=== PATIENT | male | born 1960 | race African-American/Black ===

== ENCOUNTER 2016-10-30 13:24 | Emergency (ER) | payer OTHER ==
[~2016-10-30] VITALS: Ht 167.6 cm; Wt 75.9 kg
[~2016-10-30 13:24] MED LIST: BUSP10TA PO; CILO100T PO; GABA300C3 PO; GABA300C5 PO; LISI40TA PO; PROT40TA PO; SERO400T PO; TRAZ50TA12 PO
[2016-10-30 13:25] VITALS: BP 113/72; PULSE 118; RESP 20; TEMP 98.4; O2SAT 96
--- NOTE | 2016-10-30 13:35 | PD ---
Physical Exam Time Seen by Provider: 13:33 Narrative Pt presents to the ED for evaluation of chest pain for 1 week. Aggravated with eating and drinking. States SOB. Denies any history of heart disease. Tachycardic, otherwise VSS stable. Awaiting bed placement. Data Data Last Documented VS Vital Signs Date Time Temp Pulse Resp B/P Pulse Ox O2 Delivery O2 Flow Rate FiO2 10/30/16 13:25 98.4 118 20 113/72 96 Room Air MDM Supervised Visit with DESIRAE: Nathalia Palacios Oct 30, 2016 13:35
--- NOTE | 2016-10-30 14:48 | RADRPT ---
EXAM DATE/TIME: 10/30/2016 14:37 [facility] COMPARISON: CHEST SINGLE AP, October 04, 2014, 12:14. INDICATIONS : Chest pain. MEDICAL HISTORY : None. SURGICAL HISTORY : None. ENCOUNTER: Initial ACUITY: 4 - 6 days PAIN SCORE: 9/10 LOCATION: Bilateral chest Mediastinal. FINDINGS: There is minimal blunting of the right costophrenic sulcus. The left lung is clear. The heart and pu lmonary vascularity are normal. The portion of the bony skeleton visualized is unremarkable. CONCLUSION: Minimal blunting of the right costophrenic sulcus, new from the comparison study. Jasmeet Lindo MD FACR on October 30, 2016 at 14:44 Board Certified Radiologist. This report was verified electronically.
[2016-10-30] MEDS ORDERED: LIDOCAINE VISCOUS 2% SOLN 15 ML UDC PO ONE (15:15)
[2016-10-30] MEDS ORDERED: SODIUM CHLORIDE 0.9% FLUSH 10 ML FLUSH IVF PRN (15:15)
[2016-10-30] MEDS ORDERED: ALUMINUM/MAGNESIUM/SIMETH 30 ML CUP PO ONE (15:15)
--- NOTE | 2016-10-30 15:15 | PD ---
HPI Chief Complaint: Chest Pain Time Seen by Provider: 15:05 Travel History International Travel<30 days: No Contact w/Intl Traveler<30days: No Traveled to known affect area: No History of Present Illness HPI This is a 56-year-old male who presents for evaluation of chest pain, dysphagia and odynophagia. Symptoms started several weeks ago, worsening over the past week which prompted evaluation. He reports substernal chest pain which is somewhat constant but primarily aggravated when he eats or drinks. He reports that sometimes he vomits up what he is just eaten. He also endorses a cough with yellow sputum production over the past 4-5 days. He denies any shortness of breath, fevers or chills, abdominal pain, diarrhea or constipation. He has never had an endoscopy. Denies any history of coronary artery disease. He does have a history of hiatal hernia, borderline diabetes and hypertension as well as asthma. He has no other complaints at this time. PFSH Past Medical History Asthma: Yes Cardiac Catheterization: Yes (2006) Cardiovascular Problems: Yes Chest Pain: Yes COPD: Yes GERD: Yes Hypertension: Yes Musculoskeletal: Yes (CHRONIC BACK PAIN) Neurologic: Yes (RESTLESS LEG SYNDROME) Migraines: Yes ?: Not Past Surgical History Abdominal Surgery: Yes (HERNIA) Appendectomy: Yes Eye Surgery: Yes Other Surgery: Yes (RT HERNIA REPAIR X 8) Social History Alcohol Use: No Tobacco Use: Yes (1/2 PPD) Substance Use: No Allergies-Medications (Allergen,Severity, Reaction): Coded Allergies: No Known Allergies (Verified , 03/18/16) Reported Meds & Prescriptions Reported Meds & Active Scripts Active Proair Hfa 8.5 GM Inh (Albuterol Sulfate) 90 Mcg/Act Aer 2 Puff INH Q4-6H PRN 108 mcg/actuation Prednisone 20 Mg Tab 20 Mg PO BID 5 Days Doxycycline Hyclate 100 Mg Cap 100 Mg PO BID Gabapentin 300 Mg Cap 300 Mg PO TID Lisinopril 40 Mg Tab 40 Mg PO DAILY Cilostazol 100 Mg Tab 100 Mg PO DAILY Protonix (Pantoprazole Sodium) 40 Mg Tab 40 Mg PO BID Reported Trazodone (Trazodone HCl) 50 Mg Tab 50 Mg PO HS Buspirone (Buspirone HCl) 10 Mg Tab 10 Mg PO TID Seroquel (Quetiapine Fumarate) 400 Mg Tab 400 Mg PO HS Review of Systems Except as stated in HPI: all other systems reviewed are Neg Physical Exam Narrative GENERAL: Well-developed well-nourished male in no acute distress SKIN: Warm and dry. HEAD: Atraumatic. Normocephalic. EYES: Pupils equal and round. No scleral icterus. No injection or drainage. ENT: No nasal bleeding or discharge. Mucous membranes pink and moist. NECK: Trachea midline. No JVD. CARDIOVASCULAR: Regular rate and rhythm. No murmur appreciated. RESPIRATORY: No accessory muscle use. There are some wheezing bilaterally.. GASTROINTESTINAL: Abdomen soft, non-tender, nondistended. Hepatic and splenic margins not palpable. MUSCULOSKELETAL: No obvious deformities. No edema and negative Homans NEUROLOGICAL: Awake and alert. No obvious cranial nerve deficits. Motor grossly within normal limits. Normal speech. PSYCHIATRIC: Appropriate mood and affect; insight and judgment normal. Data Data Last Documented VS Vital Signs Date Time Temp Pulse Resp B/P Pulse Ox O2 Delivery O2 Flow Rate FiO2 10/30/16 15:25 135/75 142/78 10/30/16 13:25 98.4 118 20 96 Room Air Orders Electrocardiogram (10/30/16 ) Chest, Pa & Lat (10/30/16 ) Barium Swallow (10/30/16 ) Electrocardiogram (10/30/16 15:07) Ckmb (Isoenzyme) Profile (10/30/16 15:07) Complete Blood Count With Diff (10/30/16 15:07) Magnesium (Mg) (10/30/16 15:07) Prothrombin Time / Inr (Pt) (10/30/16 15:07) Act Partial Throm Time (Ptt) (10/30/16 15:07) Troponin I (10/30/16 15:07) Ecg Monitoring (10/30/16 15:07) Bilateral Bp Monitoring (10/30/16 15:07) Iv Access Insert/Monitor (10/30/16 15:07) Oximetry (10/30/16 15:07) Oxygen Administration (10/30/16 15:07) Sodium Chloride 0.9% Flush (Ns Flush) (10/30/16 15:15) Al-Mag Hy-Si 40-40-4 Mg/Ml Liq (Mag-Al P (10/30/16 15:15) Lidocaine 2% Viscous (Xylocaine 2% Visco (10/30/16 15:15) Comprehensive Metabolic Panel (10/30/16 15:07) Albuterol-Ipratropium Neb (Duoneb Neb) (10/30/16 15:15) CKMB (10/30/16 15:11) CKMB% (10/30/16 15:11) Labs Laboratory Tests Test 10/30/16 15:11 White Blood Count 12.8 TH/MM3 Red Blood Count 5.58 MIL/MM3 Hemoglobin 13.3 GM/DL Hematocrit 43.0 % Mean Corpuscular Volume 77.0 FL Mean Corpuscular Hemoglobin 23.9 PG Mean Corpuscular Hemoglobin 31.0 % Concent Red Cell Distribution Width 17.3 % Platelet Count 346 TH/MM3 Mean Platelet Volume 7.8 FL Neutrophils (%) (Auto) 60.4 % Lymphocytes (%) (Auto) 28.3 % Monocytes (%) (Auto) 9.6 % Eosinophils (%) (Auto) 1.1 % Basophils (%) (Auto) 0.6 % Neutrophils # (Auto) 7.7 TH/MM3 Lymphocytes # (Auto) 3.6 TH/MM3 Monocytes # (Auto) 1.2 TH/MM3 Eosinophils # (Auto) 0.1 TH/MM3 Basophils # (Auto) 0.1 TH/MM3 CBC Comment DIFF FINAL Differential Comment Prothrombin Time 11.1 SEC Prothromb Time International 1.0 RATIO Ratio Activated Partial 29.0 SEC Thromboplast Time Sodium Level 135 MEQ/L Potassium Level 4.6 MEQ/L Chloride Level 103 MEQ/L Carbon Dioxide Level 23.3 MEQ/L Anion Gap 9 MEQ/L Blood Urea Nitrogen 11 MG/DL Creatinine 1.28 MG/DL Estimat Glomerular Filtration 70 ML/MIN Rate Random Glucose 95 MG/DL Calcium Level 8.9 MG/DL Magnesium Level 1.9 MG/DL Total Bilirubin 0.4 MG/DL Aspartate Amino Transf 23 U/L (AST/SGOT) Alanine Aminotransferase 17 U/L (ALT/SGPT) Alkaline Phosphatase 73 U/L Total Creatine Kinase 157 U/L Creatine Kinase MB 0.8 NG/ML Troponin I LESS THAN 0.02 NG/ML Total Protein 8.1 GM/DL Albumin 3.5 GM/DL MDM Medical Decision Making Medical Screen Exam Complete: Yes Emergency Medical Condition: Yes Medical Record Reviewed: Yes Interpretation(s) EKG sinus rhythm Differential Diagnosis Achalasia, esophagitis, gastritis, esophageal stricture, bronchitis, pneumonia, acute coronary syndrome, pulmonary embolism Narrative Course This is a 56 year old male who for several weeks has had dysphagia and odynophagia associated with a pain in the center of his chest when he eats or drinks. It is worse over the past 5-7 days which is what prompted evaluation today. He also endorses a cough with productive sputum production over the past 4-5 days. On initial examination he appears well. He does have wheezing bilaterally. Initially he was tachycardic in triage. When the patient was placed in the bed his vital signs were rechecked and it was 77. The patient's barium swallow study reveals mild smooth narrowing of the distal esophagus at the level of the GE junction. Recommended endoscopy for further evaluation. The patient will be discharged for outpatient GI follow-up. He will be discharged with doxycycline for presumed pneumonia as well as prednisone , albuterol for the wheezing. Diagnosis Primary Impression: Dysphagia Qualified Code: R13.10 - Dysphagia, unspecified type Additional Impression: Pneumonia Qualified Code: J18.9 - Pneumonia due to infectious organism, unspecified laterality, unspecified part of lung Referrals: [facility] Additional Instructions: Medication as prescribed. As discussed, follow-up with a leader writer for outpatient endoscopy imaging. Return for any emergent medical conditions. Med/Other Pt SpecificInfo: Prescription(s) given Scripts Albuterol 8.5 GM Inh (Proair Hfa 8.5 GM Inh)90 Mcg/Act Aer2 Puff INH Q4-6H PRN ( SHORTNESS OF BREATH) #1 INHALER Ref 0 108 mcg/actuation Prov:Debbie Ren DO 10/30/16 Prednisone 20 Mg Tab20 Mg PO BID 5 Days Ref 0 Prov:Debbie Ren DO 10/30/16 Doxycycline Hyclate 100 Mg Crh173 Mg PO BID #20 CAP Ref 0 Prov:Debbie Ren DO 10/30/16 Disposition: 01 DISCHARGE HOME Condition: Stable Jalen Gomez Oct 30, 2016 15:15
[2016-10-30 15:25] VITALS: BP_SYST 135; BP_SYST 142; BP_DIAS 75; BP_DIAS 78
[2016-10-30] MEDS: RESP: ALBUTEROL 2.5 MG/IPRATROPIUM 0.5 MG NEB (SCH) INH (15:26)
[2016-10-30 15:40] LABS: AUTOMATED NEUTROPHIL # 7.7 TH/MM3 (1.8-7.7); BASOPHIL # 0.1 TH/MM3 (0-0.2); BASOPHIL % 0.6 % (0.0-2.0); EOSINOPHIL # 0.1 TH/MM3 (0-0.4); EOSINOPHIL % 1.1 % (0.0-4.0); HEMO FLAGS DIFF FINAL; LYMPH % 28.3 % (9.0-44.0); LYMPHOCYTE # 3.6 TH/MM3 (1.0-4.8); MEAN CORPUSCULAR HEMOGLOBIN 23.9 PG (27.0-34.0); MONO % 9.6 % (0.0-8.0); NEUT % 60.4 % (16.0-70.0); PLATELET COUNT 346 TH/MM3 (150-450); RED BLOOD COUNT 5.58 MIL/MM3 (4.50-5.90); RED CELL DISTRIBUTION WIDTH 17.3 % (11.6-17.2); WHITE BLOOD COUNT 12.8 TH/MM3 (4.0-11.0)
[2016-10-30 15:50] LABS: PROTHROMBIN TIME - PATIENT 11.1 SEC (9.8-11.6)
[2016-10-30 16:04] LABS: ALT (GPT) 17 U/L (12-78); ANION GAP 9 MEQ/L (5-15); AST (GOT) 23 U/L (15-37); BICARBONATE 23.3 MEQ/L (21.0-32.0); BLOOD UREA NITROGEN 11 MG/DL (7-18); CHLORIDE 103 MEQ/L (98-107); GLOMERULAR FILTRATION RATE 70 ML/MIN (>89); MAGNESIUM 1.9 MG/DL (1.5-2.5); SODIUM (NA) 135 MEQ/L (136-145)
[2016-10-30 16:05] LABS: POTASSIUM 4.6 MEQ/L (3.5-5.1)
[2016-10-30 16:12] LABS: ALKALINE PHOSPHATASE 73 U/L (45-117); CREATINE KINASE 157 U/L (39-308); TOTAL BILIRUBIN ADULT 0.4 MG/DL (0.2-1.0)
[2016-10-30 16:25] LABS: CKMB 0.8 NG/ML (0.5-3.6)
--- NOTE | 2016-10-30 16:25 | RADRPT ---
EXAM DATE/TIME: 10/30/2016 15:57 [facility] COMPARISON: No previous studies available for comparison. INDICATIONS : Dysphagia. FLUORO TIME: 1.6 minutes IMAGE COUNT: 11 CONTRAST: 1. Liquid E-Z Paque Barium Sulfate (60% w/v, 41% w.w) MEDICAL HISTORY : None. SURGICAL HISTORY : None. ENCOUNTER: Initial ACUITY: 1 month PAIN SCORE: 6/10 LOCATION: Throat. FINDINGS: Air-contrast views of the hypopharynx demonstrate a normal mucosal surface without filling defect. R apid sequence images of the hypopharynx and cervical esophagus during the passage of barium demonstra te a normal swallowing function. No evidence of aspiration. Multiphasic examination of the esophagu s demonstrates some mild smooth narrowing at the GE junction. This does not appear to restrict flow o f contrast were the barium tablet. There was moderate gastroesophageal reflux in the supine position. . CONCLUSION: 1. Mild smooth narrowing of the distal esophagus at the level of the GE junction. Recommend direct vi sualization by endoscopy for further evaluation. 2. Moderate gastroesophageal reflux in the supine position. Mingo Forbes MD on October 30, 2016 at 16:20 Board Certified Radiologist. This report was verified electronically.
[2016-10-30] MEDS ORDERED: DOXY100C PO (16:43)
[2016-10-30] MEDS ORDERED: PRED20 PO (16:43)
[2016-10-30] MEDS ORDERED: ALBUAER3 INH (16:43)
[2016-10-31] MEDS ORDERED: CILO100T PO (15:47)
--- NOTE | 2016-10-31 18:32 | EKG ---
Date Performed: 10/30/2016 Time Performed: 13:39:47 PTAGE: 56 years EKG: SINUS TACHYCARDIA WITH SHORT NH INTERVAL POSSIBLE LEFT ATRIAL ENLARGEMENT NONSPECIFIC T-WAV E ABNORMALITY Compared to previous tracing, the sinus tachycardia is new. Patient continues to have a ccelerated AV node conduction and Clinical correlation and appropriate evaluation is advised. The inf erolateral ST segment elevation is resolved ABNORMAL RHYTHM ECG PREVIOUS TRACING : 10/05/2014 00.05 DOCTOR: Carissa Nolasco Interpretating Date/Time 10/31/2016 18:31:13
[2016-11-01] MEDS ORDERED: PROT40TA PO (12:27)
[2016-11-05] MEDS ORDERED: HALO2TAB PO (09:35)
[2016-11-05] MEDS ORDERED: BUPR150T3 PO (09:35)
[2016-11-05] MEDS ORDERED: BENZ0.5T PO (09:35)
[2016-11-05] MEDS ORDERED: METH125I2 IM (09:52)
[2016-11-05] MEDS ORDERED: OMEP40CA2 PO (09:53)
[2016-11-06] MEDS ORDERED: PRED50 PO (14:04)
== END 2016-10-30 17:04 | disposition home or self-care (01) ==
LOC: NEPC 13:24
DX: R13.10 Dysphagia, unspecified (principal); J18.9 Pneumonia, unspecified organism; R00.0 Tachycardia, unspecified; R73.03 Prediabetes; I10 Essential (primary) hypertension; K44.9 Diaphragmatic hernia without obstruction or gangrene; F17.210 Nicotine dependence, cigarettes, uncomplicated
CPT/HCPCS: 71020; 74230; 80053; 82550; 82552; 83735; 84484; 85025; 85610; 85730; 93005; 94640; 94664

== ENCOUNTER → 2016-11-25 | Outpatient (CLI) | payer OTHER ==
[~2016-11-25] MED LIST changes: +ALBUAER3 INH; +BENZ0.5T PO; +BUPR150T3 PO; +DOXY100C PO; -GABA300C3 PO; +HALO2TAB PO; +OMEP40CA2 PO; +PRED20 PO; +PRED50 PO
--- NOTE | 2016-11-25 09:22 | RADRPT ---
EXAM DATE/TIME: 11/25/2016 09:04 [facility] COMPARISON: No previous studies available for comparison. INDICATIONS : Dysphagia, feels like food gets stuck. FLUORO TIME: 0.3 minutes IMAGE COUNT: 8 CONTRAST: 1. Liquid E-Z Paque Barium Sulfate (60% w/v, 41% w.w) MEDICAL HISTORY : None. SURGICAL HISTORY : None. ENCOUNTER: Initial ACUITY: 4 - 6 months PAIN SCORE: 10/10 LOCATION: Bilateral neck FINDINGS: The hypopharynx appears intact without any definite mucosal lesions or mass. The region of the crico pharyngeus muscle appears intact. The esophagus appears intact without any definite mucosal lesions, stricture, or mass. The gastroesophageal junction appears intact. Patient was given a barium pill and swallowed this without any difficulty with prompt passage through the gastroesophageal junction. CONCLUSION: Unremarkable barium swallow. Alexis Valdivia MD on November 25, 2016 at 9:20 Board Certified Radiologist. This report was verified electronically.
== END ==
LOC: HRAD 08:10
PROVIDERS: ATTEND Family Medicine
DX: R13.10 Dysphagia, unspecified (principal)
CPT/HCPCS: 74230

== ENCOUNTER 2017-04-22 06:23 | Inpatient (IN) | payer SELFPAY ==
[~2017-04-22] VITALS: Ht 182.9 cm; Wt 78.2 kg
[2017-04-22] VITALS (21 sets, daily range): BP systolic 102–139; BP diastolic 63–95; PULSE 94–123; RESP 27–45; TEMP 99.4–99.8; O2SAT 92–100
[~2017-04-22 06:23] MED LIST changes: -DOXY100C PO; -PRED20 PO; -PRED50 PO
[2017-04-22] MEDS ORDERED: SODIUM CHLOR 0.9% 1000 ML INJ 1,000 ML IV ONE ×3 (06:30→15:45)
[2017-04-22] MEDS ORDERED: methylPREDNISolone SOD SUCC 125 MG/2 ML VIAL IV PUSH ONE (06:30)
[2017-04-22] MEDS ORDERED: SODIUM CHLORIDE 0.9% FLUSH 10 ML FLUSH IVF PRN (06:30)
[2017-04-22] MEDS: RESP: ALBUTEROL 2.5 MG/IPRATROPIUM 0.5 MG NEB (SCH) INH ×4 (06:39→21:15)
--- NOTE | 2017-04-22 06:45 | RADRPT ---
EXAM DATE/TIME: 04/22/2017 06:35 [facility] COMPARISON: CHEST PA & LAT, October 30, 2016, 14:37 INDICATIONS : Short of breath. MEDICAL HISTORY : None. SURGICAL HISTORY : None. ENCOUNTER: Initial ACUITY: 1 day PAIN SCORE: 0/10 LOCATION: Bilateral chest FINDINGS: Right lung base air space consolidation is present. This was not seen previously. Heart and mediastin um are unremarkable for technique. CONCLUSION: Right lower lobe pneumonia. Alexis Valdivia MD on April 22, 2017 at 6:43 Board Certified Radiologist. This report was verified electronically.
--- NOTE | 2017-04-22 06:46 | PD ---
HPI Chief Complaint: Cold / Flu Symptoms Time Seen by Provider: 06:29 Travel History International Travel<30 days: No Contact w/Intl Traveler<30days: No Traveled to known affect area: No History of Present Illness HPI 56-year-old man, 3-4 days cough cold symptoms, worsening trouble breathing, fevers and chills. History of COPD, diabetes, hypertension. Ran out of his nebulizers tonight. Significant worsening shortness of breath, cough, fever or myalgias. No nausea or vomiting. History limited due to patient's marked respiratory distress. History Past Medical History Narrative Medical COPD Hypertension Diabetes Social History Alcohol Use: No Tobacco Use: Yes (04/29 PPD) Allergies-Medications (Allergen,Severity, Reaction): Coded Allergies: No Known Allergies (Verified , 12/09/16) Reported Meds & Prescriptions Reported Meds & Active Scripts Active Gabapentin 300 Mg Cap 300 Mg PO TID Lisinopril 40 Mg Tab 40 Mg PO DAILY Omeprazole 40 Mg Cap 40 Mg PO DAILY Protonix (Pantoprazole Sodium) 40 Mg Tab 40 Mg PO BID Cilostazol 100 Mg Tab 100 Mg PO DAILY Proair Hfa 8.5 GM Inh (Albuterol Sulfate) 90 Mcg/Act Aer 2 Puff INH Q4-6H PRN 108 mcg/actuation Reported Haloperidol 2 Mg Tab 2 Mg PO DAILY Bupropion HCl ER 24 HR (Bupropion HCl) 150 Mg Tab 150 Mg PO DAILY Benztropine (Benztropine Mesylate) 0.5 Mg Tab 2 Mg PO HS Trazodone (Trazodone HCl) 50 Mg Tab 50 Mg PO HS Buspirone (Buspirone HCl) 10 Mg Tab 10 Mg PO TID Seroquel (Quetiapine Fumarate) 400 Mg Tab 400 Mg PO HS Review of Systems ROS Limitations: Clinical Condition Physical Exam Narrative GENERAL: Ill-appearing 56-year-old man, moderate respiratory distress. SKIN: Clammy. HEAD: Atraumatic. Normocephalic. EYES: Pupils equal and round. No scleral icterus. No injection or drainage. ENT: No nasal bleeding or discharge. Mucous membranes pink and moist. NECK: Trachea midline. No JVD. CARDIOVASCULAR: Heart rate rapid, regular. No appreciable murmurs. RESPIRATORY: Significant respiratory distress, speaking in 2-3 word sentences, coarse breath sounds at posterior lung ramirez. No definite wheezing. Diminished air movement. GASTROINTESTINAL: Abdomen soft, non-tender, nondistended. Hepatic and splenic margins not palpable. MUSCULOSKELETAL: No obvious deformities. No edema. NEUROLOGICAL: Awake and alert. No obvious cranial nerve deficits. Motor grossly within normal limits. Normal speech. PSYCHIATRIC: Anxious. Data Data Last Documented VS Vital Signs Date Time Temp Pulse Resp B/P (MAP) Pulse Ox O2 Delivery O2 Flow Rate FiO2 04/22/17 06:48 97 CPAP 45 04/22/17 06:32 4.00 04/22/17 06:25 99.4 117 42 102/70 (81) Orders Orders Complete Blood Count With Diff (04/22/17 06:29) Comprehensive Metabolic Panel (04/22/17 06:29) Magnesium (Mg) (04/22/17 06:29) Troponin I (04/22/17 06:29) Arterial Blood Gas (Abg) (04/22/17 06:29) Urinalysis - C+S If Indicated (04/22/17 06:29) Influenzae A/B Antigen (04/22/17 06:29) Blood Culture (04/22/17 06:29) Iv Access Insert/Monitor (04/22/17 06:29) Electrocardiogram (04/22/17 06:29) Ecg Monitoring (04/22/17 06:29) Oximetry (04/22/17 06:29) Oxygen Administration (04/22/17 06:29) Chest, Single Ap (04/22/17 06:29) Sodium Chloride 0.9% Flush (Ns Flush) (04/22/17 06:30) Methylprednisolone So Succ Inj (Solumedr (04/22/17 06:30) Albuterol-Ipratropium Neb (Duoneb Neb) (04/22/17 06:30) Resp Bipap / Cpap Non Invas Vt (04/22/17 06:29) Sodium Chlor 0.9% 1000 Ml Inj (Ns 1000 M (04/22/17 06:30) Sodium Chlor 0.9% 1000 Ml Inj (Ns 1000 M (04/22/17 06:30) Cefepime Inj (Maxipime Inj) (04/22/17 07:00) Azithromycin Inj (Zithromax Inj) (04/22/17 07:00) Electrocardiogram (04/22/17 ) Labs Laboratory Tests Test 04/22/17 06:35 [facility] Medical Decision Making Medical Screen Exam Complete: Yes Emergency Medical Condition: Yes Interpretation(s) My review of EKG: Sinus tachycardia rate of 1:15 axis, anterior, ST changes in the anterior precordium but with a wandering baseline. I don't think this represents ST elevation TN. We'll repeat EKG in 15 minutes. Anteroseptal Q waves seen. Chest x-ray: Right lower lobe pneumonia. Differential Diagnosis COPD exacerbation, pneumonia, influenza, ACS, PE, other Narrative Course Medical decision making INITIAL: 56-year-old man, shortness of breath cough cold, fever with EMS, and to be infectious. EKG shows suspicious changes will need to be repeated. Chest x-ray shows right sided pneumonia consistent with clinical history. We' ll check influenza. Patient still respiratory distress despite breathing treatments. We'll try BiPAP. We'll check ABG, labs, reassess. Patient sent out the oncoming provider at 7 AM. Critical Care Narrative Aggregate critical care time was 35 minutes. Time to perform other separately billable procedures was not included in the critical care time. My time did not include minutes spent treating any other patients simultaneously or on activities that did not directly contribute to the patient's treatment. The services I provided to this patient were to treat and/or prevent clinically significant deterioration that could result in: Respiratory failure, unrecognized sepsis, unrecognized TN, other I provided critical care services requiring my management, as noted below: Chart data review, documentation time, medication orders and management, vital sign assessments/reviewing monitor data, ordering and reviewing lab tests, ordering and interpreting/reviewing x-rays and diagnostic studies, care of the patient and discussion of the patient with the admitting physicians. Ben Mccarty MD Apr 22, 2017 06:46
[2017-04-22 06:51] LABS: AUTOMATED NEUTROPHIL # 15.1 TH/MM3 (1.8-7.7); BASOPHIL % 0.1 % (0.0-2.0); EOSINOPHIL % 0.1 % (0.0-4.0); HEMATOCRIT 37.1 % (39.0-51.0); HEMOGLOBIN 12.1 GM/DL (13.0-17.0); LYMPH % 8.1 % (9.0-44.0); LYMPHOCYTE # 1.4 TH/MM3 (1.0-4.8); MEAN CELL VOLUME 75.8 FL (80.0-100.0); MEAN CORPUSCULAR HEMOGLOBIN 24.7 PG (27.0-34.0); MEAN CORPUSCULAR HGB CONC 32.6 % (32.0-36.0); MEAN PLATELET VOLUME 7.3 FL (7.0-11.0); MONO % 5.4 % (0.0-8.0); MONOCYTE # 0.9 TH/MM3 (0-0.9); NEUT % 86.3 % (16.0-70.0); PLATELET COUNT 262 TH/MM3 (150-450); RED CELL DISTRIBUTION WIDTH 17.2 % (11.6-17.2); WHITE BLOOD COUNT 17.5 TH/MM3 (4.0-11.0)
[2017-04-22] MEDS ORDERED: AZITHROMYCIN INJ 500 MG in SODIUM CHLOR 0.9% 250 ML INJ 250 ML IV ONE (07:00)
[2017-04-22] MEDS ORDERED: CEFEPIME INJ 2,000 MG in SODIUM CHLORIDE 0.9% INJ 100 ML IV ONE (07:00)
[2017-04-22 07:13] LABS: ALBUMIN 3.2 GM/DL (3.4-5.0); ALT (GPT) 13 U/L (12-78); AST (GOT) 21 U/L (15-37); BICARBONATE 21.3 MEQ/L (21.0-32.0); BLOOD UREA NITROGEN 9 MG/DL (7-18); CALCIUM 8.4 MG/DL (8.5-10.1); CHLORIDE 100 MEQ/L (98-107); GLOMERULAR FILTRATION RATE 59 ML/MIN (>89); GLUCOSE,RANDOM 93 MG/DL (74-106); MAGNESIUM 1.4 MG/DL (1.5-2.5); SODIUM (NA) 131 MEQ/L (136-145)
[2017-04-22 07:17] LABS: ALKALINE PHOSPHATASE 66 U/L (45-117); TOTAL BILIRUBIN ADULT 0.6 MG/DL (0.2-1.0); TOTAL PROTEIN 7.4 GM/DL (6.4-8.2); TROPONIN I LESS THAN 0.02 NG/ML (0.02-0.05)
[2017-04-22 07:35] LABS: BANDS 13 % (0-6); LYMPHOCYTES 12 % (9-44); METAMYELOCYTES 1 % (0-1); MONOCYTES 3 % (0-8); NEUTROPHIL # MANUAL DIFF 14.9 TH/MM3 (1.8-7.7); POLYS (SEG NEUTROPHILS) 71 % (16-70); TOXIC VACUOLATION PRESENT (NONE SEEN)
[2017-04-22 07:36] LABS: OVALOCYTES 1+ (NORMAL)
[2017-04-22] MEDS ORDERED: SODIUM CHLORIDE 0.9% FLUSH 10 ML FLUSH IV FLUSH PRN (08:30)
[2017-04-22] MEDS ORDERED: CHLORHEXIDINE GLUCONATE 2 % 1 PACK (2 CLOTHS) TOP PRN (08:30)
[2017-04-22] MEDS ORDERED: MISCELLANEOUS NURSING INFORMATION XX SCH (08:30)
[2017-04-22] MEDS ORDERED: SODIUM CHLOR 0.9% 1000 ML INJ 1,000 ML IV STA (08:34)
[2017-04-22] MEDS ORDERED: GLUCAGON 1 MG/ML VIAL IM/SQ PRN (08:45)
[2017-04-22] MEDS ORDERED: DEXTROSE 50% IN WATER 50 ML VIAL(D50) IV PRN (08:45)
[2017-04-22] MEDS ORDERED: ETOMIDATE 40 MG/20 ML VIAL ONE (08:59)
[2017-04-22] MEDS ORDERED: MIDAZOLAM 100 MG/100 ML INJ 100 ML IV PRN (09:00)
[2017-04-22] MEDS: PANTOPRAZOLE SOD 40 MG DELAYED RELEASE TAB PO SCH (09:00)
[2017-04-22] MEDS: HALOPERIDOL 2 MG TAB PO SCH (09:00)
[2017-04-22] MEDS ORDERED: ETOMIDATE 20 MG/10 ML VIAL IVP ONE (09:00)
[2017-04-22] MEDS: buPROPion HCL 150 MG EXTENDED RELEASE TAB PO SCH (09:00)
[2017-04-22] MEDS ORDERED: SUCCINYLCHOLINE CHLORIDE 200 MG/10 ML VIAL IV PUSH ONE (09:00)
[2017-04-22] MEDS: PIPERACIL-TAZO 4.5 GM PREMIX 100 ML IV SCH ×3 (09:00→22:19)
[2017-04-22] MEDS ORDERED: FAMOTIDINE 20 MG/2 ML VIAL IV PUSH SCH (09:00)
[2017-04-22] MEDS: PROPOFOL 1000 MG/100 ML INJ 100 ML IV PRN ×2 (09:40→15:26)
--- NOTE | 2017-04-22 10:10 | PD ---
Physical Exam Date Seen by Provider: Apr 22, 2017 Time Seen by Provider: 07:00 Narrative The patient was signed out to me by Dr. Ben Mccarty changes shift. We were awaiting laboratory tests. Patient has a working diagnosis of right lower lobe pneumonia. Data Data Last Documented VS Vital Signs Date Time Temp Pulse Resp B/P (MAP) Pulse Ox O2 Delivery O2 Flow Rate FiO2 04/22/17 08:15 115 42 118/63 (81) 95 BiPAP 04/22/17 07:34 45 04/22/17 06:32 4.00 04/22/17 06:25 99.4 Orders Orders Complete Blood Count With Diff (04/22/17 06:29) Comprehensive Metabolic Panel (04/22/17 06:29) Magnesium (Mg) (04/22/17 06:29) Troponin I (04/22/17 06:29) Arterial Blood Gas (Abg) (04/22/17 06:29) Urinalysis - C+S If Indicated (04/22/17 06:29) Influenzae A/B Antigen (04/22/17 06:29) Blood Culture (04/22/17 06:29) Iv Access Insert/Monitor (04/22/17 06:29) Electrocardiogram (04/22/17 06:29) Ecg Monitoring (04/22/17 06:29) Oximetry (04/22/17 06:29) Oxygen Administration (04/22/17 06:29) Chest, Single Ap (04/22/17 06:29) Sodium Chloride 0.9% Flush (Ns Flush) (04/22/17 06:30) Methylprednisolone So Succ Inj (Solumedr (04/22/17 06:30) Albuterol-Ipratropium Neb (Duoneb Neb) (04/22/17 06:30) Resp Bipap / Cpap Non Invas Vt (04/22/17 06:29) Sodium Chlor 0.9% 1000 Ml Inj (Ns 1000 M (04/22/17 06:30) Sodium Chlor 0.9% 1000 Ml Inj (Ns 1000 M (04/22/17 06:30) Cefepime Inj (Maxipime Inj) (04/22/17 07:00) Azithromycin Inj (Zithromax Inj) (04/22/17 07:00) Electrocardiogram (04/22/17 ) Admit To Inpatient (04/22/17 ) Code Status (04/22/17 08:20) Rd Mechanical Engineer / Telemetry ROCKY.Q8H (04/22/17 08:20) Diet Npo Except Meds (04/22/17 Breakfast) Sodium Chlor 0.9% 1000 Ml Inj (Ns 1000 M (04/22/17 08:20) Sodium Chloride 0.9% Flush (Ns Flush) (04/22/17 08:30) Sodium Chloride 0.9% Flush (Ns Flush) (04/22/17 09:00) Famotidine Inj (Pepcid Inj) (04/22/17 09:00) Albuterol-Ipratropium Neb (Duoneb Neb) (04/22/17 10:00) Comprehensive Metabolic Panel (04/23/17 06:00) Complete Blood Count With Diff (04/23/17 06:00) Chest, Single Ap (04/23/17 06:00) Consult Pt Eval & Treat (04/22/17 08:20) Ot Request For Service (04/22/17 08:20) Enoxaparin Inj (Lovenox Inj) (04/22/17 09:00) Scd Bilateral/Knee High ROCKY.BID (04/22/17 08:20) Piperacil-Tazo 4.5 Gm Premix (Zosyn 4.5 (04/22/17 12:00) Azithromycin Inj (Zithromax Inj) (04/23/17 09:00) Linezolid 600 Mg Premix (Zyvox 600 Mg Pr (04/22/17 09:00) ^ Initiate Protocol (04/22/17 08:20) Instruction (04/22/17 08:20) [facility] (04/22/17 08:30) Chlorhexidine 2% Cloth (Chlorhexidine 2% (04/23/17 04:00) Chlorhexidine 2% Cloth (Chlorhexidine 2% (04/22/17 08:30) [facility] Pcr Surveillance (04/22/17 08:20) Inpatient Certification (04/22/17 ) Lactic Acid Sepsis Protocol (04/22/17 08:35) Sodium Chlor 0.9% 1000 Ml Inj (Ns 1000 M (04/22/17 08:34) Resp Bipap / Cpap Non Invas Vt (04/22/17 08:35) Albuterol-Ipratropium Neb (Duoneb Neb) (04/22/17 08:30) Benztropine (Cogentin) (04/22/17 21:00) Bupropion Xl 24 Hr (Wellbutrin Xl 24 Hr) (04/22/17 09:00) Cilostazol (Pletal) (04/22/17 09:00) Gabapentin (Neurontin) (04/22/17 09:00) Haloperidol (Haldol) (04/22/17 09:00) Trazodone (Desyrel) (04/22/17 21:00) Pantoprazole (Protonix) (04/22/17 09:00) Quetiapine (Seroquel) (04/22/17 21:00) Labs Laboratory Tests Test 04/22/17 06:35 04/22/17 07:42 White Blood Count 17.5 TH/MM3 Red Blood Count 4.90 MIL/MM3 Hemoglobin 12.1 GM/DL Hematocrit 37.1 % Mean Corpuscular Volume 75.8 FL Mean Corpuscular Hemoglobin 24.7 PG Mean Corpuscular Hemoglobin Concent 32.6 % Red Cell Distribution Width 17.2 % Platelet Count 262 TH/MM3 Mean Platelet Volume 7.3 FL Neutrophils (%) (Auto) 86.3 % Lymphocytes (%) (Auto) 8.1 % Monocytes (%) (Auto) 5.4 % Eosinophils (%) (Auto) 0.1 % Basophils (%) (Auto) 0.1 % Neutrophils # (Auto) 15.1 TH/MM3 Lymphocytes # (Auto) 1.4 TH/MM3 Monocytes # (Auto) 0.9 TH/MM3 Eosinophils # (Auto) 0.0 TH/MM3 Basophils # (Auto) 0.0 TH/MM3 CBC Comment AUTO DIFF Differential Total Cells Counted 100 Neutrophils % (Manual) 71 % Band Neutrophils % 13 % Lymphocytes % 12 % Monocytes % 3 % Neutrophils # (Manual) 14.9 TH/MM3 Metamyelocytes 1 % Differential Comment FINAL DIFF MANUAL Toxic Vacuolation PRESENT Platelet Estimate NORMAL Platelet Morphology Comment NORMAL Ovalocytes 1+ Blood Urea Nitrogen 9 MG/DL Creatinine 1.50 MG/DL Random Glucose 93 MG/DL Total Protein 7.4 GM/DL Albumin 3.2 GM/DL Calcium Level 8.4 MG/DL Magnesium Level 1.4 MG/DL Alkaline Phosphatase 66 U/L Aspartate Amino Transf (AST/SGOT) 21 U/L Alanine Aminotransferase (ALT/SGPT) 13 U/L Total Bilirubin 0.6 MG/DL Sodium Level 131 MEQ/L Potassium Level 3.6 MEQ/L Chloride Level 100 MEQ/L Carbon Dioxide Level 21.3 MEQ/L Anion Gap 10 MEQ/L Estimat Glomerular Filtration Rate 59 ML/MIN Troponin I LESS THAN 0.02 NG/ML Blood Gas Puncture Site RT RADIAL Blood Gas Patient Temperature 98.6 Blood Gas HCO3 21 mmol/L Blood Gas Base Excess -3.8 mmol/L Blood Gas Oxygen Saturation 95 % Arterial Blood pH 7.37 Arterial Blood Partial Pressure CO2 37 mmHg Arterial Blood Partial Pressure O2 96 mmHg Arterial Blood Oxygen Content 14.9 Vol % Arterial Blood Carboxyhemoglobin 1.4 % Arterial Blood Methemoglobin 0.9 % Blood Gas Hemoglobin 11.0 G/DL Oxygen Delivery Device BIPAP Blood Gas Ventilator Setting IPAP12/EPAP6 Blood Gas Inspired Oxygen 45 % MDM Medical Record Reviewed: Yes Supervised Visit with DESIRAE: No Narrative Course 56-year-old male presents with tachypnea, cough and respiratory distress. The patient was placed on CPAP. Chest x-ray revealed a right lower lobe pneumonia. White count was 17.5. The patient remained tachypnea with a respiratory rate in the 40s. The patient started to get fatigue. At that point the decision was made to intubate the patient. He was intubated successfully. He darted been started on antibiotics prior by Dr. marks. The patient meets sepsis criteria. Case was discussed with Dr. Madina May auger operator, who is agreeable with the plan. Critical Care Narrative Aggregate critical care time was 60 minutes. Time to perform other separately billable procedures was not included in the critical care time. My time did not include minutes spent treating any other patients simultaneously or on activities that did not directly contribute to the patient's treatment. The services I provided to this patient were to treat and/or prevent clinically significant deterioration that could result in: I provided critical care services requiring my management, as noted below: Chart data review, documentation time, medication orders and management, vital sign assessments/reviewing monitor data, ordering and reviewing lab tests, ordering and interpreting/reviewing x-rays and diagnostic studies, care of the patient and discussion of the patient with the admitting physicians. Procedures Procedure Narrative After the risks and benefits were discussed the following procedure was performed: INTUBATION: The patient was put in optimal position for the procedure. Rapid sequence intubation was initiated by me using 20 milligrams of etomidate IV and 100 milligrams of succinyl choline IV. The patient was intubated with a 8.0 cuffed endotracheal tube. Tube placement was confirmed by visualization of the tube and balloon passing through the cords, capnometry and subsequent chest x- ray. Breath sounds were equal and well aerated bilaterally postintubation. No breath sounds over stomach. Patient tolerated procedure well. Sepsis Criteria SIRS Criteria (2 or more): Heart rate over 90, RR > 20 or PaCO2 < 32, WBC > 89273, < 4000 or > 10% bands Sepsis Criteria (SIRS+source): Infect source susp/known Severe Sepsis (+one): Acute Oliguria/Renal Failure Diagnosis Primary Impression: Pneumonia Additional Impressions: Sepsis COPD (chronic obstructive pulmonary disease) Diabetes mellitus History of hypertension Admitting Information Admitting Physician Requests: Admit Kasi Dunn MD Apr 22, 2017 10:10
[2017-04-22] MEDS: SODIUM CHLOR 0.9% 1000 ML INJ 1,000 ML IV SCH ×3 (10:13→19:45)
[2017-04-22 10:32] LABS: BILIRUBIN, URINE NEG (NEG); BLOOD, URINE NEG (NEG); GLUCOSE,URINE NEG (NEG); KETONE, URINE NEG (NEG); NITRITE,URINE NEG (NEG); URINE COLOR LIGHT-YELLOW (YELLW/STRAW); URINE LEUKOCYTE ESTERASE NEG (NEG)
[2017-04-22] MEDS: INSULIN ASPART SUPPLEMENTAL SCALE SQ SCH ×4 (10:49→23:41)
[2017-04-22] MEDS: AZITHROMYCIN INJ 500 MG in SODIUM CHLOR 0.9% 250 ML INJ 250 ML IV SCH (10:50)
[2017-04-22] MEDS: LINEZOLID 600 MG PREMIX 300 ML IV SCH ×2 (11:15→22:19)
[2017-04-22] MEDS: ENOXAPARIN SODIUM 40 MG/0.4 ML SYRINGE SQ SCH (11:15)
[2017-04-22] MEDS: GABAPENTIN 300 MG CAP PO SCH ×3 (11:16→19:45)
[2017-04-22] MEDS: CILOSTAZOL 100 MG TAB PO SCH (11:16)
[2017-04-22] MEDS: SODIUM CHLORIDE 0.9% FLUSH 10 ML FLUSH IV FLUSH SCH ×2 (11:16→22:20)
[2017-04-22] MEDS ORDERED: PIPERACIL-TAZO 4.5 GM PREMIX 100 ML IV SCH (12:00)
--- NOTE | 2017-04-22 15:44 | HHI.HP ---
HPI Service Critical Care Medicine Primary Care Physician No Primary Care Physician Admission Diagnosis Diagnosis: Chief Complaint: Shortness of breath Travel History International Travel<30 Days: No Contact w/Intl Traveler <30 Da: No Traveled to Known Affected Are: No Sepsis Criteria SIRS Criteria (2 or more): Heart rate over 90, RR > 20 or PaCO2 < 32, WBC > 95098, < 4000 or > 10% bands Sepsis Criteria (SIRS+source): Infect source susp/known Severe Sepsis (+one): Organ Dysfunction Criteria Outcome: Meets severe sepsis criteria History of Present Illness History of Present Illness HPI 56-year-old man, 3-4 days cough cold symptoms, worsening trouble breathing, fevers and chills. History of COPD, diabetes, hypertension. Ran out of his nebulizers last night. Significant worsening shortness of breath, cough, fever or myalgias. No nausea or vomiting. History limited due to patient's marked respiratory distress. Patient initially placed on BiPAP however develop worsening respiratory distress and hence was emergently intubated and placed on mechanical ventilation by ER physician. His chest x-ray in the ER revealed right lower lobe pneumonia and after obtaining blood cultures he was initiated on empiric antibiotic coverage. Accepted for admission by critical care medicine service. I evaluated the patient following his arrival to the ICU. At that time he was sedated, orally intubated on mechanical ventilation. History obtained by reviewing records and discussion with patient's . History Past Medical History Narrative Medical COPD Hypertension Diabetes Social History Alcohol Use: No Tobacco Use: Yes (/2 PPD) Allergies-Medications (Allergen,Severity, Reaction): Coded Allergies: No Known Allergies (Verified , 12/09/16) Reported Meds & Prescriptions Reported Meds & Active Scripts Active Gabapentin 300 Mg Cap 300 Mg PO TID Lisinopril 40 Mg Tab 40 Mg PO DAILY Omeprazole 40 Mg Cap 40 Mg PO DAILY Protonix (Pantoprazole Sodium) 40 Mg Tab 40 Mg PO BID Cilostazol 100 Mg Tab 100 Mg PO DAILY Proair Hfa 8.5 GM Inh (Albuterol Sulfate) 90 Mcg/Act Aer 2 Puff INH Q4-6H PRN 108 mcg/actuation Reported Haloperidol 2 Mg Tab 2 Mg PO DAILY Bupropion HCl ER 24 HR (Bupropion HCl) 150 Mg Tab 150 Mg PO DAILY Benztropine (Benztropine Mesylate) 0.5 Mg Tab 2 Mg PO HS Trazodone (Trazodone HCl) 50 Mg Tab 50 Mg PO HS Buspirone (Buspirone HCl) 10 Mg Tab 10 Mg PO TID Seroquel (Quetiapine Fumarate) 400 Mg Tab 400 Mg PO HS Review of Systems ROS Limitations: Intubated Physical Exam Vital Signs Vital Signs Date Time Temp Pulse Resp B/P (MAP) Pulse Ox O2 Delivery O2 Flow Rate FiO2 04/22/17 12:51 99 70 04/22/17 11:23 100 90 04/22/17 09:41 123 30 123/79 (94) 100 Ventilator 04/22/17 09:27 120 27 139/95 (110) 100 Ventilator 04/22/17 09:11 99 100 04/22/17 09:00 121 45 115/63 (80) 95 BiPAP 04/22/17 08:48 95 50 04/22/17 08:15 115 42 118/63 (81) 95 BiPAP 04/22/17 07:38 120 42 127/75 (92) 98 BiPAP 04/22/17 07:34 95 45 04/22/17 07:03 113 40 126/93 (104) 100 04/22/17 06:48 97 CPAP 45 04/22/17 06:45 96 45 04/22/17 06:32 94 Nasal Cannula 4.00 04/22/17 06:25 99.4 117 42 102/70 (81) 92 Physical Exam HEENT/ Neuro: Sedated, orally intubated, Pallor present, no icterus, tongue/ mucosa moist Neck: No JVD Chest/Pulm: on mech vent, good air entry bilaterally, scattered rhonchi, no wheezing or crackles CVS: S1-S2 regular, no murmur GI/abdomen: soft, nontender, bowel sounds sluggish Extremities: warm bilaterally, no edema Laboratory Laboratory Tests Test 04/22/17 06:35 04/22/17 07:42 04/22/17 08:40 04/22/17 10:00 White Blood Count 17.5 Red Blood Count 4.90 Hemoglobin 12.1 Hematocrit 37.1 Mean Corpuscular Volume 75.8 Mean Corpuscular Hemoglobin 24.7 Mean Corpuscular Hemoglobin Concent 32.6 Red Cell Distribution Width 17.2 Platelet Count 262 Mean Platelet Volume 7.3 Neutrophils (%) (Auto) 86.3 Lymphocytes (%) (Auto) 8.1 Monocytes (%) (Auto) 5.4 Eosinophils (%) (Auto) 0.1 Basophils (%) (Auto) 0.1 Neutrophils # (Auto) 15.1 Lymphocytes # (Auto) 1.4 Monocytes # (Auto) 0.9 Eosinophils # (Auto) 0.0 Basophils # (Auto) 0.0 CBC Comment AUTO DIFF Differential Total Cells Counted 100 Neutrophils % (Manual) 71 Band Neutrophils % 13 Lymphocytes % 12 Monocytes % 3 Neutrophils # (Manual) 14.9 Metamyelocytes 1 Differential Comment FINAL DIFF MANUAL Toxic Vacuolation PRESENT Platelet Estimate NORMAL Platelet Morphology Comment NORMAL Ovalocytes 1+ Blood Urea Nitrogen 9 Creatinine 1.50 Random Glucose 93 Total Protein 7.4 Albumin 3.2 Calcium Level 8.4 Magnesium Level 1.4 Alkaline Phosphatase 66 Aspartate Amino Transf (AST/SGOT) 21 Alanine Aminotransferase (ALT/SGPT) 13 Total Bilirubin 0.6 Sodium Level 131 Potassium Level 3.6 Chloride Level 100 Carbon Dioxide Level 21.3 Anion Gap 10 Estimat Glomerular Filtration Rate 59 Troponin I LESS THAN 0.02 Blood Gas Puncture Site RT RADIAL Blood Gas Patient Temperature 98.6 Blood Gas HCO3 21 Blood Gas Base Excess -3.8 Blood Gas Oxygen Saturation 95 Arterial Blood pH 7.37 Arterial Blood Partial Pressure CO2 37 Arterial Blood Partial Pressure O2 96 Arterial Blood Oxygen Content 14.9 Arterial Blood Carboxyhemoglobin 1.4 Arterial Blood Methemoglobin 0.9 Blood Gas Hemoglobin 11.0 Oxygen Delivery Device BIPAP Blood Gas Ventilator Setting IPAP12/EPAP6 Blood Gas Inspired Oxygen 45 Urine Color LIGHT-YELLOW Urine Turbidity CLEAR Urine pH 6.0 Urine Specific Lando 1.005 Urine Protein NEG Urine Glucose (UA) NEG Urine Ketones NEG Urine Occult Blood NEG Urine Nitrite NEG Urine Bilirubin NEG Urine Urobilinogen LESS THAN 2.0 Urine Leukocyte Esterase NEG Urine WBC LESS THAN 1 Microscopic Urinalysis Comment CULT NOT INDICATED Nasal Screen MRSA (PCR) MRSA NOT DETECTED Test 04/22/17 12:14 04/22/17 14:34 Lactic Acid Level 1.6 Blood Gas Puncture Site LT RADIAL Blood Gas Patient Temperature 98.6 Blood Gas HCO3 20 Blood Gas Base Excess -4.9 Blood Gas Oxygen Saturation 96 Arterial Blood pH 7.36 Arterial Blood Partial Pressure CO2 36 Arterial Blood Partial Pressure O2 109 Arterial Blood Oxygen Content 14.5 Arterial Blood Carboxyhemoglobin 0.9 Arterial Blood Methemoglobin 1.2 Blood Gas Hemoglobin 10.6 Oxygen Delivery Device VENTILATOR Blood Gas Ventilator Setting PRVC/AC Blood Gas Inspired Oxygen 70 Date/Time Source Procedure Growth Status 04/22/17 06:40 Blood Peripheral Aerobic Blood Culture Pending Received 04/22/17 06:40 Blood Peripheral Anaerobic Blood Culture Pending Received 04/22/17 06:35 Nasal Washing Influenza Types A,B Antigen (ALEX) - Final Complete Result Diagram: 04/22/17 0635 04/22/17 0635 Imaging Last Impressions Chest X-Ray 04/22/17 06 Signed Impressions: Service Date/Time: Saturday, April 22, 2017 06:35 - CONCLUSION: Right lower lobe pneumonia. Alexis Valdivia MD Septic Shock Reassessment Septic shock perfusion: reassessment completed Caprini VTE Risk Assessment Caprini VTE Risk Assessment: Mod/High Risk (score >= 2) Caprini Risk Assessment Model Point Value = 1 Point Value = 2 Point Value = 3 Point Value = 5 Age 41-60 Minor surgery BMI > 25 kg/m2 Swollen legs Varicose veins or History of unexplained or recurrent spontaneous Oral contraceptives or hormone replacement Sepsis (< 1 month) Serious lung disease, including pneumonia (< 1 month) Abnormal pulmonary function Acute myocardial infarction Congestive heart failure (< 1 month) History of inflammatory bowel disease Medical patient at bed rest Age 61-74 Arthroscopic surgery Major open surgery (> 45 min) Laparoscopic surgery (> 45 min) Malignancy Confined to bed (> 72 hours) Immobilizing plaster cast Central venous access Age >= 75 History of VTE Family history of VTE Factor V Leiden Prothrombin [id number] Lupus anticoagulant Anticardiolipin antibodies Elevated serum homocysteine Heparin-induced thrombocytopenia Other congenital or acquired thrombophilia Stroke (< 1 month) Elective arthroplasty Hip, pelvis, or leg fracture Acute spinal cord injury (< 1 month) Prophylaxis Regimen Total Risk Factor Score Risk Level Prophylaxis Regimen 0-1 Low Early ambulation 2 Moderate Order ONE of the following: *Sequential Compression Device (SCD) *Heparin 5000 units SQ BID 3-4 Higher Order ONE of the following medications: *Heparin 5000 units SQ TID *Enoxaparin/Lovenox 40 mg SQ daily (WT < 150 kg, CrCl > 30 mL/min) *Enoxaparin/Lovenox 30 mg SQ daily (WT < 150 kg, CrCl > 10-29 mL/min) *Enoxaparin/Lovenox 30 mg SQ BID (WT < 150 kg, CrCl > 30 mL/min) AND/OR *Sequential Compression Device (SCD) 5 or more Highest Order ONE of the following medications: *Heparin 5000 units SQ TID (Preferred with Epidurals) *Enoxaparin/Lovenox 40 mg SQ daily (WT < 150 kg, CrCl > 30 mL/min) *Enoxaparin/Lovenox 30 mg SQ daily (WT < 150 kg, CrCl > 10-29 mL/min) *Enoxaparin/Lovenox 30 mg SQ BID (WT < 150 kg, CrCl > 30 mL/min) AND *Sequential Compression Device (SCD) Assessment and Plan Assessment and Plan 56-year-old male with: Acute respiratory failure requiring mechanical ventilation Right lower lobe pneumonia Severe sepsis Diabetes mellitus COPD Plan: Neuro: Sedation with Versed/fentanyl gtt., titrate off propofol in view of hypotension. Daily sedation vacation. Follow neuro status. Cardiovascular: IV hydration. 2 L normal saline bolus given earlier. Watch for hypotension. Levophed for pressor support if needed. Pulmonary: Continue mechanical ventilation, vent bundle, bronchodilators, IV Solu-Medrol. Daily C Pap trials starting tomorrow to decide extubation GI/liver: Start tube feeds and advanced to goal as tolerated. Renal/: IV hydration, strict intake output, monitor and replete electro lites , follow BUN/creatinine. ID: Follow-up blood and sputum cultures. Check urine for strep pneumo and Legionella antigen. Empiric antibiotic coverage with IV Zyvox/Zosyn/Zithromax. Lactic acid sepsis protocol Endocrine: Watch for hyperglycemia, SSI for glycemic control if needed Heme: Follow CBC and coags. Prophylaxis: PPI/SCDs/Lovenox Discussed with patient's regarding current clinical condition in detail and she voiced understanding and was agreeable with plan of care. Condition critical Time spent on critical care excluding procedures 50 minutes Rubin Painter MD Apr 22, 2017 15:44
[2017-04-22] MEDS: fentaNYL DRIP 250 ML IV PRN (16:37)
[2017-04-22] MEDS ORDERED: VASOPRESSIN INJ 40 UNITS in DEXTROSE 5% IN WATER 100ML INJ 98 ML IV SCH ×2 (17:03)
--- NOTE | 2017-04-22 17:29 | EKG ---
Date Performed: 04/22/2017 Time Performed: 06:37:44 PTAGE: 56 years EKG: SINUS TACHYCARDIA WITH SHORT WI INTERVAL LEFT ATRIAL ENLARGEMENT SEPTAL MYOCARDIAL INFARCTI ON ACUTE CA Since PREVIOUS TRACING , no significant change noted PREVIOUS TRACIN10/30/2016 13.39 DOCTOR: Lexy Sen Interpretating Date/Time 04/22/2017 17:29:10
[2017-04-22] MEDS: BENZTROPINE MESYLATE 1 MG TAB PO SCH (22:18)
[2017-04-22] MEDS: QUEtiapine FUMARATE 200 MG TAB PO SCH (22:19)
[2017-04-22] MEDS: traZODone HCL 50 MG TAB PO SCH (22:19)
[2017-04-23] VITALS (47 sets, daily range): BP systolic 89–126; BP diastolic 58–78; PULSE 89–119; RESP 9–32; TEMP 97.4–99.7; O2SAT 92–99
[2017-04-23] MEDS: CHLORHEXIDINE GLUCONATE 2 % 1 PACK (2 CLOTHS) TOP SCH (00:16)
[2017-04-23] MEDS: PIPERACIL-TAZO 4.5 GM PREMIX 100 ML IV SCH ×4 (02:24→19:52)
[2017-04-23] MEDS: RESP: ALBUTEROL 2.5 MG/IPRATROPIUM 0.5 MG NEB (SCH) INH ×4 (04:03→20:29)
--- NOTE | 2017-04-23 04:03 | RADRPT ---
EXAM DATE/TIME: 04/23/2017 03:07 [place] COMPARISON: CHEST SINGLE AP, April 22, 2017, 6:35. INDICATIONS : Short of breath. MEDICAL HISTORY : None. SURGICAL HISTORY : None. ENCOUNTER: Initial ACUITY: 1 day PAIN SCORE: 0/10 LOCATION: Bilateral chest FINDINGS: There is worsening right lung base opacity since the prior examination could be worsening consolidati on and/or collapse. Pleural effusion is difficult to exclude. There is also parenchymal infiltrate in the left lung diffusely may represent pulmonary edema. NG tube is present with tip in the stomach. E T tube is present with tip overlapping approximately 2 cm above the martha. CONCLUSION: Worsening right lung base opacity probably collapsed lung obscuring previously seen mass or consolida tion and there is also bilateral infiltrates mainly on the left side not present previously may repre sent pulmonary edema. Alexis Valdivia MD on April 23, 2017 at 3:59 Board Certified Radiologist. This report was verified electronically.
[2017-04-23] MEDS: INSULIN ASPART SUPPLEMENTAL SCALE SQ SCH ×4 (05:19→23:29)
[2017-04-23] MEDS: SODIUM CHLOR 0.9% 1000 ML INJ 1,000 ML IV SCH ×2 (06:05→15:49)
[2017-04-23 08:18] LABS: BASOPHIL % 0.1 % (0.0-2.0); EOSINOPHIL # 0.1 TH/MM3 (0-0.4); EOSINOPHIL % 0.7 % (0.0-4.0); HEMOGLOBIN 10.2 GM/DL (13.0-17.0); LYMPH % 5.2 % (9.0-44.0); MEAN CORPUSCULAR HEMOGLOBIN 23.9 PG (27.0-34.0); MEAN CORPUSCULAR HGB CONC 31.1 % (32.0-36.0); MEAN PLATELET VOLUME 7.7 FL (7.0-11.0); MONO % 5.6 % (0.0-8.0); MONOCYTE # 1.1 TH/MM3 (0-0.9); NEUT % 88.4 % (16.0-70.0); PLATELET COUNT 243 TH/MM3 (150-450); RED BLOOD COUNT 4.28 MIL/MM3 (4.50-5.90); RED CELL DISTRIBUTION WIDTH 17.8 % (11.6-17.2); WHITE BLOOD COUNT 19.3 TH/MM3 (4.0-11.0)
[2017-04-23 08:41] LABS: ALBUMIN 2.1 GM/DL (3.4-5.0); ALKALINE PHOSPHATASE 61 U/L (45-117); ALT (GPT) 23 U/L (12-78); AST (GOT) 31 U/L (15-37); BICARBONATE 21.4 MEQ/L (21.0-32.0); BLOOD UREA NITROGEN 12 MG/DL (7-18); CALCIUM 7.7 MG/DL (8.5-10.1); CHLORIDE 114 MEQ/L (98-107); CREATININE 1.08 MG/DL (0.60-1.30); GLOMERULAR FILTRATION RATE 86 ML/MIN (>89); GLUCOSE,RANDOM 108 MG/DL (74-106); SODIUM (NA) 143 MEQ/L (136-145); TOTAL BILIRUBIN ADULT 0.3 MG/DL (0.2-1.0); TOTAL PROTEIN 6.2 GM/DL (6.4-8.2)
[2017-04-23] MEDS: SODIUM CHLORIDE 0.9% FLUSH 10 ML FLUSH IV FLUSH SCH ×2 (09:00→19:53)
[2017-04-23 09:16] LABS: BANDS 17 % (0-6); BURR CELLS 1+ (NORMAL); LYMPHOCYTES 8 % (9-44); METAMYELOCYTES 5 % (0-1); MONOCYTES 5 % (0-8); MYELOCYTES 1 % (0-0); NEUTROPHIL # MANUAL DIFF 16.8 TH/MM3 (1.8-7.7); POLYS (SEG NEUTROPHILS) 64 % (16-70)
[2017-04-23 09:17] LABS: KERATOCYTES OCC (NORMAL); TOXIC VACUOLATION PRESENT (NONE SEEN)
[2017-04-23] MEDS: LINEZOLID 600 MG PREMIX 300 ML IV SCH ×2 (09:28→19:52)
[2017-04-23] MEDS: buPROPion HCL 150 MG EXTENDED RELEASE TAB PO SCH (09:29)
[2017-04-23] MEDS: GABAPENTIN 300 MG CAP PO SCH ×3 (09:29→19:12)
[2017-04-23] MEDS: PANTOPRAZOLE SOD 40 MG DELAYED RELEASE TAB PO SCH (09:29)
[2017-04-23] MEDS: CILOSTAZOL 100 MG TAB PO SCH (09:29)
[2017-04-23] MEDS: HALOPERIDOL 2 MG TAB PO SCH (09:29)
[2017-04-23] MEDS: ENOXAPARIN SODIUM 40 MG/0.4 ML SYRINGE SQ SCH (09:30)
[2017-04-23] MEDS: RESP: ACETYLCYSTEINE 10% 30 ML NEB NEB SCH (16:00)
--- NOTE | 2017-04-23 16:17 | HHI.CCPN ---
Subjective Remarks/Hospital Course 04/22: 56-year-old man, 3-4 days cough cold symptoms, worsening trouble breathing, fevers and chills. History of COPD, diabetes, hypertension. Ran out of his nebulizers last night. Significant worsening shortness of breath, cough, fever or myalgias. No nausea or vomiting. History limited due to patient's marked respiratory distress. Patient initially placed on BiPAP however develop worsening respiratory distress and hence was emergently intubated and placed on mechanical ventilation by ER physician. His chest x- ray in the ER revealed right lower lobe pneumonia and after obtaining blood cultures he was initiated on empiric antibiotic coverage. Accepted for admission by critical care medicine service. I evaluated the patient following his arrival to the ICU. At that time he was sedated, orally intubated on mechanical ventilation. History obtained by reviewing records and discussion with patient's . 04/23: Remains sedated, orally intubated on mechanical ventilation. Blood cultures growing Escherichia coli. Objective Vital Signs Date Time Temp Pulse Resp B/P (MAP) Pulse Ox O2 Delivery O2 Flow Rate FiO2 04/23/17 15:33 95 45 04/23/17 15:00 107 04/23/17 13:15 32 126/63 (84) 04/23/17 12:00 97.9 04/22/17 09:41 Ventilator 04/22/17 06:32 4.00 Intake and Output 04/23/17 04/23/17 04/24/17 08:00 16:00 00:00 Intake Total 1203 ml 300 ml Output Total 2650 ml Balance -1447 ml 300 ml Result Diagram: 04/23/17 0730 04/23/17 0730 Other Results Microbiology Date/Time Source Procedure Growth Status 04/22/17 06:35 Nasal Washing Influenza Types A,B Antigen (ALEX) - Final Complete 04/22/17 08:40 Urine Catheterized Urine Legionella Antigen - Final PRESUMPTIVE NEGATIVE FOR LEGIONELLA P... Complete 04/22/17 08:40 Urine Catheterized Urine Streptococcus pneumoniae Antigen (M - Final PRESUMPTIVE NEGATIVE FOR STREPTOCOCCU... Complete Imaging Last 24 hours Impressions Chest X-Ray 04/23/17 0600 Signed Impressions: Service Date/Time: Sunday, April 23, 2017 03:07 - CONCLUSION: Worsening right lung base opacity probably collapsed lung obscuring previously seen mass or consolidation and there is also bilateral infiltrates mainly on the left side not present previously may represent pulmonary edema. Alexis Valdivia MD Last Impressions Chest X-Ray 04/22/17 0629 Signed Impressions: Service Date/Time: Saturday, April 22, 2017 06:35 - CONCLUSION: Right lower lobe pneumonia. Alexis Valdivia MD Objective Remarks HEENT/ Neuro: Sedated, orally intubated, Pallor present, no icterus, tongue/ mucosa moist Neck: No JVD Chest/Pulm: on mech vent, air entry decreased oral right base, scattered rhonchi , no wheezing or crackles CVS: S1-S2 regular, no murmur GI/abdomen: soft, nontender, bowel sounds sluggish Extremities: warm bilaterally, no edema A/P Assessment and Plan 56-year-old male with: Acute respiratory failure requiring mechanical ventilation Right lower lobe pneumonia Severe sepsis Diabetes mellitus COPD Plan: Neuro: Sedation with Versed/fentanyl gtt., titrate off propofol in view of hypotension. Daily sedation vacation. Follow neuro status. Cardiovascular: IV hydration. Received multiple fluid boluses on 04/22. Watch for hypotension. Levophed for pressor support if needed. Pulmonary: Continue mechanical ventilation, vent bundle, bronchodilators, IV Solu-Medrol. Will obtain CT chest to further evaluate right sided infiltrate versus mass. Start Mucomyst nebulizer treatments with chest percussion therapy with follow-up chest x-ray in a.m. Awaiting CT chest prior to deciding bronchoscopy for further evaluation. Daily C Pap trials starting tomorrow to decide extubation GI/liver: Tolerating tube feeds. Renal/: IV hydration, strict intake output, monitor and replete electro lites , follow BUN/creatinine. ID: Follow-up blood and sputum cultures. Check urine for strep pneumo and Legionella antigen. Empiric antibiotic coverage with IV Zyvox/Zosyn/Zithromax. Lactic acid sepsis protocol Blood cultures growing Escherichia coli Endocrine: Watch for hyperglycemia, SSI for glycemic control if needed Heme: Follow CBC and coags. Prophylaxis: PPI/SCDs/Lovenox Discussed with patient's regarding current clinical condition in detail and she voiced understanding and was agreeable with plan of care on 04/22. Condition critical Time spent on critical care excluding procedures 40 minutes Rubin Painter MD Apr 23, 2017 16:17
--- NOTE | 2017-04-23 16:28 | RADRPT ---
EXAM DATE/TIME: 04/23/2017 15:38 [facility] COMPARISON: CHEST SINGLE AP, April 23, 2017, 3:07. INDICATIONS : Respiratory failure MEDICAL HISTORY : None. SURGICAL HISTORY : None. ENCOUNTER: Subsequent ACUITY: 2 days PAIN SCORE: Non-responsive. LOCATION: Bilateral chest FINDINGS: Stable ETT and NGT. Stable right sided pleural effusion and associated right lower lobe consolidation . Stable linear critical opacities in the left lower lung zone. Persistent perihilar interstitial opa cities. Cardiomediastinal contours are stable. CONCLUSION: 1. Stable ETT and NGT. 2. Stable right lower lobe airspace consolidation and pleural effusion. 3. Stable left lower lobe linear parenchymal opacities, likely atelectasis. 4. 5. Stable perihilar interstitial opacities likely reflecting positive fluid balance. Chepe Adamson MD on April 23, 2017 at 16: 6. 24 Board Certified Radiologist. This report was verified electronically.
[2017-04-23] MEDS: LACTATED RINGER'S 1000 ML INJ 1,000 ML IV SCH (17:00)
[2017-04-23] MEDS: fentaNYL DRIP 250 ML IV PRN (19:29)
[2017-04-23] MEDS: traZODone HCL 50 MG TAB PO SCH (19:52)
[2017-04-23] MEDS: QUEtiapine FUMARATE 200 MG TAB PO SCH (19:52)
[2017-04-23] MEDS: BENZTROPINE MESYLATE 1 MG TAB PO SCH (19:52)
--- NOTE | 2017-04-23 23:22 | RADRPT ---
EXAM DATE/TIME: 04/23/2017 23:01 [facility] COMPARISON: CHEST SINGLE AP, April 23, 2017, 15:38. INDICATIONS : Shortness of breath. Evaluate right lower lobe consolidation vs mass. RADIATION DOSE: 5.55 CTDIvol (mGy) MEDICAL HISTORY : Hypertension. Chronic obstructive pulmonary disease. SURGICAL HISTORY : Appendectomy. ENCOUNTER: Subsequent ACUITY: 2 days PAIN SCALE: Non-responsive LOCATION: chest TECHNIQUE: Volumetric scanning of the chest was performed. Using automated exposure control and adjustment of t he mA and/or kV according to patient size, radiation dose was kept as low as reasonably achievable to obtain optimal diagnostic quality images. DICOM format image data is available electronically for r eview and comparison. Follow-up recommendations for detected pulmonary nodules are based at a minimum on nodule size and pa tient risk factors according to Fleischner Society Guidelines. FINDINGS: Tiny pericardial effusion is seen maximum thickness of 6 mm . There is dense air space consolidation in right lower lobe and to lesser degree left lung base with scattered parenchymal infiltrates in marilee ateral upper lobes most likely pneumonia. There is no pleural effusion. No appreciable pathological adenopathy is seen within the mediastinum. CONCLUSION: Parenchymal infiltrates with dense bibasilar consolidation worse on the right and pne umonia is suspected. Alexis Valdivia MD on April 23, 2017 at 23:17 Board Certified Radiologist. This report was verified electronically.
[2017-04-24] VITALS (44 sets, daily range): BP systolic 110–154; BP diastolic 56–85; PULSE 101–128; RESP 9–19; TEMP 97.7–101.2; O2SAT 90–100
[2017-04-24] MEDS: CHLORHEXIDINE GLUCONATE 2 % 1 PACK (2 CLOTHS) TOP SCH
[2017-04-24] MEDS: PIPERACIL-TAZO 4.5 GM PREMIX 100 ML IV SCH ×4 (02:16→20:47)
[2017-04-24] MEDS: RESP: ACETYLCYSTEINE 10% 30 ML NEB NEB SCH ×4 (02:45→23:45)
[2017-04-24] MEDS: RESP: ALBUTEROL 2.5 MG/IPRATROPIUM 0.5 MG NEB (SCH) INH ×4 (02:45→20:33)
[2017-04-24] MEDS: INSULIN ASPART SUPPLEMENTAL SCALE SQ SCH ×3 (05:22→17:26)
--- NOTE | 2017-04-24 06:04 | RADRPT ---
EXAM DATE/TIME: 04/24/2017 04:47 [facility] COMPARISON: CHEST SINGLE AP, April 23, 2017, 15:38. INDICATIONS : Shortness of breath, possible pulmonary disease. MEDICAL HISTORY : None. SURGICAL HISTORY : None. ENCOUNTER: Subsequent ACUITY: 3 days PAIN SCORE: Non-responsive. LOCATION: Bilateral chest FINDINGS: ET tube, and NG tube have not changed. there is slight worsening of the posterior process in the lung s most likely pulmonary edema. Right basilar opacity is present may be due to a combination of consol idation and or pleural effusion. Mild left lung base atelectasis and/or infiltrate is seen. CONCLUSION: Right basilar opacity is present may be due to a combination of consolidation and or pleural effusion not significantly changed, however the pulmonary edema identified previously appears slightly worse. Alexis Valdivia MD on April 24, 2017 at 6:01 Board Certified Radiologist. This report was verified electronically.
[2017-04-24] MEDS: LINEZOLID 600 MG PREMIX 300 ML IV SCH (07:46)
[2017-04-24] MEDS: AZITHROMYCIN INJ 500 MG in SODIUM CHLOR 0.9% 250 ML INJ 250 ML IV SCH (07:47)
[2017-04-24] MEDS: HALOPERIDOL 2 MG TAB PO SCH (07:47)
[2017-04-24] MEDS: GABAPENTIN 300 MG CAP PO SCH ×3 (07:48→17:25)
[2017-04-24] MEDS: CILOSTAZOL 100 MG TAB PO SCH (07:48)
[2017-04-24] MEDS: PANTOPRAZOLE SOD 40 MG DELAYED RELEASE TAB PO SCH (07:48)
[2017-04-24] MEDS: ENOXAPARIN SODIUM 40 MG/0.4 ML SYRINGE SQ SCH (07:48)
[2017-04-24] MEDS: buPROPion HCL 150 MG EXTENDED RELEASE TAB PO SCH (07:48)
[2017-04-24] MEDS: SODIUM CHLORIDE 0.9% FLUSH 10 ML FLUSH IV FLUSH SCH ×2 (07:48→20:47)
[2017-04-24 08:10] LABS: AUTOMATED NEUTROPHIL # 10.7 TH/MM3 (1.8-7.7); BASOPHIL % 0.2 % (0.0-2.0); EOSINOPHIL % 0.1 % (0.0-4.0); HEMATOCRIT 30.9 % (39.0-51.0); HEMOGLOBIN 9.8 GM/DL (13.0-17.0); LYMPH % 11.1 % (9.0-44.0); LYMPHOCYTE # 1.4 TH/MM3 (1.0-4.8); MEAN CELL VOLUME 76.4 FL (80.0-100.0); MEAN CORPUSCULAR HEMOGLOBIN 24.1 PG (27.0-34.0); MEAN CORPUSCULAR HGB CONC 31.6 % (32.0-36.0); MEAN PLATELET VOLUME 7.4 FL (7.0-11.0); MONO % 6.1 % (0.0-8.0); MONOCYTE # 0.8 TH/MM3 (0-0.9); NEUT % 82.5 % (16.0-70.0); PLATELET COUNT 242 TH/MM3 (150-450); RED BLOOD COUNT 4.05 MIL/MM3 (4.50-5.90); RED CELL DISTRIBUTION WIDTH 17.7 % (11.6-17.2); WHITE BLOOD COUNT 12.9 TH/MM3 (4.0-11.0)
[2017-04-24 08:26] LABS: ALBUMIN 2.1 GM/DL (3.4-5.0); AST (GOT) 27 U/L (15-37); BICARBONATE 23.5 MEQ/L (21.0-32.0); BLOOD UREA NITROGEN 10 MG/DL (7-18); CALCIUM 8.1 MG/DL (8.5-10.1); CHLORIDE 109 MEQ/L (98-107); CREATININE 1.02 MG/DL (0.60-1.30); GLOMERULAR FILTRATION RATE 92 ML/MIN (>89); GLUCOSE,RANDOM 102 MG/DL (74-106); SODIUM (NA) 142 MEQ/L (136-145)
[2017-04-24 08:31] LABS: ALKALINE PHOSPHATASE 50 U/L (45-117); ALT (GPT) 16 U/L (12-78); TOTAL BILIRUBIN ADULT 0.3 MG/DL (0.2-1.0); TOTAL PROTEIN 6.4 GM/DL (6.4-8.2)
[2017-04-24] MEDS: fentaNYL DRIP 250 ML IV PRN ×3 (10:47→23:03)
--- NOTE | 2017-04-24 11:01 | HHI.CCPN ---
Subjective Remarks/Hospital Course 04/22: 56-year-old man, 3-4 days cough cold symptoms, worsening trouble breathing, fevers and chills. History of COPD, diabetes, hypertension. Ran out of his nebulizers last night. Significant worsening shortness of breath, cough, fever or myalgias. No nausea or vomiting. History limited due to patient's marked respiratory distress. Patient initially placed on BiPAP however develop worsening respiratory distress and hence was emergently intubated and placed on mechanical ventilation by ER physician. His chest x- ray in the ER revealed right lower lobe pneumonia and after obtaining blood cultures he was initiated on empiric antibiotic coverage. Accepted for admission by critical care medicine service. I evaluated the patient following his arrival to the ICU. At that time he was sedated, orally intubated on mechanical ventilation. History obtained by reviewing records and discussion with patient's . 04/23: Remains sedated, orally intubated on mechanical ventilation. Blood cultures growing Escherichia coli. 04/24: remains intubated. blood and sputum growing e. coli. still no family reachable for bronch. Objective Vital Signs Date Time Temp Pulse Resp B/P (MAP) Pulse Ox O2 Delivery O2 Flow Rate FiO2 04/24/17 10:30 114 04/24/17 09:30 12 113/71 (85) 95 04/24/17 08:03 50 04/24/17 08:00 100.2 04/22/17 09:41 Ventilator 04/22/17 06:32 4.00 Intake and Output 04/24/17 04/24/17 04/25/17 08:00 16:00 00:00 Intake Total 585 ml 250 ml Output Total 1050 ml Balance -465 ml 250 ml Result Diagram: 04/24/17 0700 04/24/17 0706 Other Results Microbiology Date/Time Source Procedure Growth Status 04/22/17 06:35 Nasal Washing Influenza Types A,B Antigen (ALEX) - Final Complete 04/22/17 08:40 Urine Catheterized Urine Legionella Antigen - Final PRESUMPTIVE NEGATIVE FOR LEGIONELLA P... Complete 04/22/17 08:40 Urine Catheterized Urine Streptococcus pneumoniae Antigen (M - Final PRESUMPTIVE NEGATIVE FOR STREPTOCOCCU... Complete Imaging Last 24 hours Impressions Chest X-Ray 04/23/17 0600 Signed Impressions: Service Date/Time: Sunday, April 23, 2017 03:07 - CONCLUSION: Worsening right lung base opacity probably collapsed lung obscuring previously seen mass or consolidation and there is also bilateral infiltrates mainly on the left side not present previously may represent pulmonary edema. Alexis Valdivia MD Last Impressions Chest X-Ray 04/22/17 0629 Signed Impressions: Service Date/Time: Saturday, April 22, 2017 06:35 - CONCLUSION: Right lower lobe pneumonia. Alexis Valdivia MD Objective Remarks HEENT/ Neuro: Sedated, orally intubated, Pallor present, no icterus, tongue/ mucosa moist Neck: No JVD Chest/Pulm: on mech vent, air entry decreased over right base, scattered rhonchi , no wheezing or crackles CVS: S1-S2 regular, no murmur GI/abdomen: soft, nontender, bowel sounds sluggish Extremities: warm bilaterally, no edema A/P Assessment and Plan 56-year-old male with: Acute hypoxic respiratory failure requiring mechanical ventilation Right lower lobe pneumonia Severe sepsis Diabetes mellitus COPD E. Coli bacteremia E. Coli community acquired pneumonia Plan: Neuro: transition to propofol and off versed for sedation. Daily sedation vacation. Follow neuro status. Cardiovascular: IV hydration. Received multiple fluid boluses on 04/22. Pulmonary: Continue mechanical ventilation, vent bundle, bronchodilators, IV Solu-Medrol. CT chest with densely infiltrative RLL consolidation. no appreciable pleural effusion. daily SBTs. GI/liver: Tolerating tube feeds. Renal/: IV hydration, strict intake output, monitor and replete electrolytes, follow BUN/creatinine. ID: cultures growing e. coli. urine strep pneumo and legionella negative. d/c zyvox. continue zosyn and azithromycin until cultures finalize. Blood cultures growing Escherichia coli Endocrine: Watch for hyperglycemia, SSI for glycemic control if needed Heme: Follow CBC and coags. Prophylaxis: PPI/SCDs/Lovenox Overall impression: remains critically ill with hypoxemic respiratory failure, off pathway, bacteremic. little improvements over last 48h. Condition critical Time spent on critical care excluding procedures 35 minutes Alfonzo Garcia MD Apr 24, 2017 11:01
[2017-04-24] MEDS ORDERED: MIDAZOLAM HCL 5 MG/ML VIAL (1 ML) ONE (11:08)
[2017-04-24] MEDS ORDERED: ROCURONIUM INJ 50 MG/5 ML VIAL ONE (11:09)
--- NOTE | 2017-04-24 11:54 | PD.PROCEDR ---
Procedure Note Procedure Procedure: Diagnostic and therapeutic Fiberoptic Bronchoscopy Diagnosis: Acute hypoxic respiratory failure Indications: Complete collapse the right lower lobe, not responsive to conservative measures Consent: Obtained Anesthesia: Versed 5 mg IV, fentanyl 200 g IV, Rocuronium 50 mg IV Description of the Procedure: The patient was sedated and mechanically ventilated. The patient was placed on 100% FIO2 and a volume control mode of ventilation. The fiberoptic bronchoscopy was inserted via 8.0 oral endotracheal tube. The trachea, right and left mainstem bronchi, and sub- segmental bronchi were evaluated. The endobronchial anatomy was normal. Findings: Significant mucus plugging the right lower lobe. These were aggressively suctioned until clear. BAL samples: Right lower lobe The patient tolerated the procedure well with no hemodynamic instability or hypoxia. There were no immediate complications noted. At the conclusion of the procedure, the patient was placed back on their pre-procedure ventilatory settings. There was minimal EBL. A chest x-ray has been ordered. I personally performed the procedure. Alfonzo Garcia MD Apr 24, 2017 11:54
[2017-04-24] MEDS ORDERED: ACETAMINOPHEN 325 MG TAB PO ONE (14:00)
--- NOTE | 2017-04-24 14:26 | RADRPT ---
EXAM DATE/TIME: 04/24/2017 13:41 [facility] COMPARISON: CHEST SINGLE AP, April 24, 2017, 4:47. INDICATIONS : Respiratory failure. MEDICAL HISTORY : Hypertension. Chronic obstructive pulmonary disease. SURGICAL HISTORY : Appendectomy. ENCOUNTER: Subsequent ACUITY: 3 days PAIN SCORE: Non-responsive. LOCATION: Bilateral chest FINDINGS: The endotracheal tube and NG tube remain in place. There continues to be a pulmonary infiltrate in th e right lower lung which is about the same compared to the prior exam. There is pulmonary venous lee estion in both lung ramirez. No other new or significant changes are seen compared to the prior study. There is no evidence of pneumothorax. Heart size is stable. The bony structures are stable. CONCLUSION: No significant interval change compared to the prior exam. The continues to be a patchy parenchymal i nfiltrate in the right lung base. Mingo Forbes MD on April 24, 2017 at 14:24 Board Certified Radiologist. This report was verified electronically.
[2017-04-24] MEDS: LACTATED RINGER'S 1000 ML INJ 1,000 ML IV SCH ×2 (16:21→20:51)
[2017-04-24] MEDS: QUEtiapine FUMARATE 200 MG TAB PO SCH (20:47)
[2017-04-24] MEDS: BENZTROPINE MESYLATE 1 MG TAB PO SCH (20:48)
[2017-04-24] MEDS: traZODone HCL 50 MG TAB PO SCH (20:48)
[2017-04-24] MEDS: RESP: ALBUTEROL 2.5 MG/IPRATROPIUM 0.5 MG NEB (PRN) INH (23:45)
[2017-04-25] VITALS (32 sets, daily range): BP systolic 104–145; BP diastolic 55–81; PULSE 103–134; RESP 12–24; TEMP 98.5–99.8; O2SAT 94–100
[2017-04-25] MEDS: PIPERACIL-TAZO 4.5 GM PREMIX 100 ML IV SCH ×2 (02:04→08:54)
[2017-04-25] MEDS: CHLORHEXIDINE GLUCONATE 2 % 1 PACK (2 CLOTHS) TOP SCH (03:56)
[2017-04-25] MEDS: RESP: ALBUTEROL 2.5 MG/IPRATROPIUM 0.5 MG NEB (SCH) INH ×4 (04:08→20:42)
[2017-04-25] MEDS: INSULIN ASPART SUPPLEMENTAL SCALE SQ SCH ×5 (05:24→23:24)
[2017-04-25] MEDS: RESP: ACETYLCYSTEINE 10% 30 ML NEB NEB SCH ×3 (08:09→20:42)
[2017-04-25] MEDS: buPROPion HCL 150 MG EXTENDED RELEASE TAB PO SCH (08:54)
[2017-04-25] MEDS: SODIUM CHLORIDE 0.9% FLUSH 10 ML FLUSH IV FLUSH SCH ×2 (08:54→21:00)
[2017-04-25] MEDS: CILOSTAZOL 100 MG TAB PO SCH (08:54)
[2017-04-25] MEDS: AZITHROMYCIN INJ 500 MG in SODIUM CHLOR 0.9% 250 ML INJ 250 ML IV SCH (08:54)
[2017-04-25] MEDS: HALOPERIDOL 2 MG TAB PO SCH (08:54)
[2017-04-25] MEDS: PANTOPRAZOLE SOD 40 MG DELAYED RELEASE TAB PO SCH (08:54)
[2017-04-25] MEDS: ENOXAPARIN SODIUM 40 MG/0.4 ML SYRINGE SQ SCH (08:54)
[2017-04-25] MEDS: GABAPENTIN 300 MG CAP PO SCH ×3 (08:54→18:35)
[2017-04-25] MEDS: PROPOFOL 1000 MG/100 ML INJ 100 ML IV PRN ×2 (10:29→18:37)
[2017-04-25] MEDS: cefTRIAXone INJ 1,000 MG in SODIUM CHLORIDE 0.9% INJ 100 ML IV SCH (10:32)
--- NOTE | 2017-04-25 10:55 | HHI.CCPN ---
Subjective Remarks/Hospital Course 04/22: 56-year-old man, 3-4 days cough cold symptoms, worsening trouble breathing, fevers and chills. History of COPD, diabetes, hypertension. Ran out of his nebulizers last night. Significant worsening shortness of breath, cough, fever or myalgias. No nausea or vomiting. History limited due to patient's marked respiratory distress. Patient initially placed on BiPAP however develop worsening respiratory distress and hence was emergently intubated and placed on mechanical ventilation by ER physician. His chest x- ray in the ER revealed right lower lobe pneumonia and after obtaining blood cultures he was initiated on empiric antibiotic coverage. Accepted for admission by critical care medicine service. I evaluated the patient following his arrival to the ICU. At that time he was sedated, orally intubated on mechanical ventilation. History obtained by reviewing records and discussion with patient's . 04/23: Remains sedated, orally intubated on mechanical ventilation. Blood cultures growing Escherichia coli. 04/24: remains intubated. blood and sputum growing e. coli. still no family reachable for bronch. 04/25: much more awake and alert. sputum and blood growing e. coli. Abx narrowed to Rocephin IV, total of 7 day course. hypoxia improving. Objective Vital Signs Date Time Temp Pulse Resp B/P (MAP) Pulse Ox O2 Delivery O2 Flow Rate FiO2 04/25/17 08:11 95 50 04/25/17 06:00 110 04/25/17 04:00 99.8 12 111/67 (82) 04/22/17 09:41 Ventilator 04/22/17 06:32 4.00 Intake and Output 04/25/17 04/25/17 04/25/17 07:59 15:59 23:59 Intake Total 100 ml Output Total 925 ml Balance -825 ml Result Diagram: 04/24/17 0700 04/24/17 0706 Imaging Last 24 hours Impressions Chest X-Ray 04/23/17 06 Signed Impressions: Service Date/Time: Sunday, April 23, 2017 03:07 - CONCLUSION: Worsening right lung base opacity probably collapsed lung obscuring previously seen mass or consolidation and there is also bilateral infiltrates mainly on the left side not present previously may represent pulmonary edema. Alexis Valdivia MD Last Impressions Chest X-Ray 04/22/17 06 Signed Impressions: Service Date/Time: Saturday, April 22, 2017 06:35 - CONCLUSION: Right lower lobe pneumonia. Alexis Valdivia MD Objective Remarks HEENT/ Neuro: Sedated, orally intubated, Pallor present, no icterus, tongue/ mucosa moist Neck: No JVD Chest/Pulm: on mech vent, air entry decreased over right base, scattered rhonchi , no wheezing or crackles CVS: S1-S2 regular, no murmur GI/abdomen: soft, nontender, bowel sounds sluggish Extremities: warm bilaterally, no edema A/P Assessment and Plan 56-year-old male with: Acute hypoxic respiratory failure requiring mechanical ventilation Right lower lobe pneumonia Severe sepsis - improving. Diabetes mellitus COPD E. Coli bacteremia E. Coli community acquired pneumonia Acute kidney injury Plan: Neuro: propofol for goal RASS -2. Daily sedation vacation. Follow neuro status. Cardiovascular: saline lock ivf. Pulmonary: Continue mechanical ventilation, vent bundle, bronchodilators. CT chest with densely infiltrative RLL consolidation. no appreciable pleural effusion. daily SBTs. GI/liver: Tolerating tube feeds. Renal/: strict intake output, monitor and replete electrolytes, follow BUN/ creatinine. ID: cultures growing e. coli. urine strep pneumo and legionella negative. d/c zosyn and azithromycin. start Rocephin 1gm iv q24h for total 7 day course of abx (anticipated stop date 04/30) Blood cultures growing Escherichia coli Endocrine: Watch for hyperglycemia, SSI for glycemic control if needed Heme: Follow CBC and coags. Prophylaxis: PPI/SCDs/Lovenox Overall impression: improvements in mental status and hypoxemia. still with densely consolidated RLL. may take a few days of weaning mechanical ventilation before ready to extubate. highly complex with ongoing multiple medical issues. Alfonzo Garcia MD Apr 25, 2017 10:55
[2017-04-25] MEDS: fentaNYL DRIP 250 ML IV PRN ×2 (11:51→23:24)
[2017-04-25 13:11] LABS: HEMATOCRIT 30.8 % (39.0-51.0); HEMOGLOBIN 9.6 GM/DL (13.0-17.0); MEAN CORPUSCULAR HEMOGLOBIN 23.7 PG (27.0-34.0); MEAN CORPUSCULAR HGB CONC 31.2 % (32.0-36.0); MEAN PLATELET VOLUME 7.1 FL (7.0-11.0); PLATELET COUNT 239 TH/MM3 (150-450); RED BLOOD COUNT 4.05 MIL/MM3 (4.50-5.90); RED CELL DISTRIBUTION WIDTH 17.8 % (11.6-17.2); WHITE BLOOD COUNT 11.1 TH/MM3 (4.0-11.0)
[2017-04-25 13:28] LABS: BICARBONATE 27.4 MEQ/L (21.0-32.0); CALCIUM 8.3 MG/DL (8.5-10.1); CREATININE 0.9 MG/DL (0.60-1.30)
[2017-04-25] MEDS ORDERED: POTASSIUM CHLORIDE 25 MEQ EFFERVESCENT TAB PO ONE (15:30)
[2017-04-25] MEDS: POTASSIUM CHLOR 10 MEQ PREMIX 100 ML IV SCH ×2 (16:32→17:11)
--- NOTE | 2017-04-25 16:32 | ECHRPT ---
Indication: lv func CONCLUSIONS Normal left ventricular size. Estimated LVEF 60-65%. [id number] mitral valve regurgitation. There is mild tricuspid valve regurgitation. The estimated pulmonary arterial pressure is 49.4 mmHg. BP: / HR: Rhythm: MEASUREMENTS (Male / Female) Normal Values Technical Quality:Fair 2D ECHO LV Diastolic Diameter PLAX 3.3 cm 4.2 - 5.9 / 3.9 - 5.3 cm LV Systolic Diameter PLAX 2.6 cm IVS Diastolic Thickness 1.6 cm 0.6 - 1.0 / 0.6 - 0.9 cm LVPW Diastolic Thickness 1.5 cm 0.6 - 1.0 / 0.6 - 0.9 cm LV Relative Wall Thickness 0.9 RV Internal Dim ED PLAX 2.4 cm M-MODE Aortic Root Diameter MM 3.4 cm LA Systolic Diameter MM 4.0 cm LA Ao Ratio MM 1.2 AV Cusp Separation MM 2.0 cm DOPPLER Mitral E Point Velocity 56.8 cm/s Mitral A Point Velocity 83.4 cm/s Mitral E to A Ratio 0.7 LV E' Lateral Velocity 6.3 cm/s Mitral E to LV E' Lateral Ratio 9.0 LV E' Septal Velocity 6.0 cm/s Mitral E to LV E' Septal Ratio 9.4 TR Peak Velocity 314.0 cm/s TR Peak Gradient 39.4 mmHg Right Atrial Pressure 10.0 mmHg Pulmonary Artery Systolic Pressu 49.4 mmHg Right Ventricular Systolic Press 49.4 mmHg FINDINGS LEFT VENTRICLE Normal left ventricular size. The left ventricular systolic function is normal with an estimated ejection fraction in the range of 60-65%. RIGHT VENTRICLE Normal right ventricular size and systolic function. LEFT ATRIUM The left atrial size is normal. RIGHT ATRIUM The right atrial size is normal. ATRIAL SEPTUM Normal atrial septal thickness without atrial level shunting by limited color doppler interrogation. AORTA The aortic root and proximal ascending aorta are normal in size on limited imaging. MITRAL VALVE Structurally normal mitral valve. [id number] mitral valve regurgitation. AORTIC VALVE Trileaflet aortic valve. No aortic valve stenosis or regurgitation. TRICUSPID VALVE Structurally normal tricuspid valve. There is mild tricuspid valve regurgitation. The estimated pulmonary arterial pressure is 49.4 mmHg. PULMONARY VALVE No pulmonary valve regurgitation or stenosis. VESSELS The inferior vena cava is normal in size. PERICARDIUM No pericardial effusion. Ayo Avalos MD (Electronically Signed) Final Date:25 April 2017 16:30
[2017-04-25 16:55] LABS: BILIRUBIN, URINE NEG (NEG); BLOOD, URINE NEG (NEG); GLUCOSE,URINE NEG (NEG); KETONE, URINE NEG (NEG); MUCUS URINE FEW /lpf (OCC); NITRITE,URINE NEG (NEG); URINE COLOR YELLOW (YELLW/STRAW); URINE LEUKOCYTE ESTERASE NEG (NEG)
[2017-04-25] MEDS: BENZTROPINE MESYLATE 1 MG TAB PO SCH (21:59)
[2017-04-25] MEDS: traZODone HCL 50 MG TAB PO SCH (21:59)
[2017-04-25] MEDS: QUEtiapine FUMARATE 200 MG TAB PO SCH (21:59)
[2017-04-26] VITALS (19 sets, daily range): BP systolic 114–146; BP diastolic 72–97; PULSE 99–117; RESP 12–16; TEMP 97.9–99.8; O2SAT 93–99
[2017-04-26] MEDS: PROPOFOL 1000 MG/100 ML INJ 100 ML IV PRN ×4 (01:30→18:28)
[2017-04-26] MEDS: CHLORHEXIDINE GLUCONATE 2 % 1 PACK (2 CLOTHS) TOP SCH (03:06)
[2017-04-26] MEDS: RESP: ALBUTEROL 2.5 MG/IPRATROPIUM 0.5 MG NEB (SCH) INH ×4 (03:11→21:57)
[2017-04-26 05:26] LABS: HEMATOCRIT 30.7 % (39.0-51.0); HEMOGLOBIN 9.8 GM/DL (13.0-17.0); MEAN CELL VOLUME 76.3 FL (80.0-100.0); MEAN CORPUSCULAR HEMOGLOBIN 24.3 PG (27.0-34.0); MEAN CORPUSCULAR HGB CONC 31.8 % (32.0-36.0); MEAN PLATELET VOLUME 6.8 FL (7.0-11.0); PLATELET COUNT 253 TH/MM3 (150-450); RED BLOOD COUNT 4.02 MIL/MM3 (4.50-5.90); RED CELL DISTRIBUTION WIDTH 17.8 % (11.6-17.2)
[2017-04-26 06:00] LABS: BICARBONATE 29.4 MEQ/L (21.0-32.0); CALCIUM 8.7 MG/DL (8.5-10.1); CREATININE 0.65 MG/DL (0.60-1.30)
[2017-04-26] MEDS: INSULIN ASPART SUPPLEMENTAL SCALE SQ SCH ×4 (06:00→23:58)
[2017-04-26] MEDS ORDERED: MAGNESIUM CITRATE SOLN 300 ML BTL PO ONE (06:30)
[2017-04-26] MEDS: RESP: ACETYLCYSTEINE 10% 30 ML NEB NEB SCH ×3 (08:11→21:57)
[2017-04-26] MEDS: cefTRIAXone INJ 1,000 MG in SODIUM CHLORIDE 0.9% INJ 100 ML IV SCH (08:27)
[2017-04-26] MEDS: ENOXAPARIN SODIUM 40 MG/0.4 ML SYRINGE SQ SCH (08:27)
[2017-04-26] MEDS: GABAPENTIN 300 MG CAP PO SCH ×3 (08:28→17:26)
[2017-04-26] MEDS: HALOPERIDOL 2 MG TAB PO SCH (08:28)
[2017-04-26] MEDS: SODIUM CHLORIDE 0.9% FLUSH 10 ML FLUSH IV FLUSH SCH ×2 (08:28→21:40)
[2017-04-26] MEDS: CILOSTAZOL 100 MG TAB PO SCH (08:29)
[2017-04-26] MEDS: fentaNYL DRIP 250 ML IV PRN ×2 (08:37→18:34)
[2017-04-26] MEDS: PANTOPRAZOLE SOD 40 MG DELAYED RELEASE TAB PO SCH (09:00)
[2017-04-26] MEDS: buPROPion HCL 150 MG EXTENDED RELEASE TAB PO SCH (09:00)
--- NOTE | 2017-04-26 15:04 | HHI.CCPN ---
Subjective Remarks/Hospital Course 04/22: 56-year-old man, 3-4 days cough cold symptoms, worsening trouble breathing, fevers and chills. History of COPD, diabetes, hypertension. Ran out of his nebulizers last night. Significant worsening shortness of breath, cough, fever or myalgias. No nausea or vomiting. History limited due to patient's marked respiratory distress. Patient initially placed on BiPAP however develop worsening respiratory distress and hence was emergently intubated and placed on mechanical ventilation by ER physician. His chest x- ray in the ER revealed right lower lobe pneumonia and after obtaining blood cultures he was initiated on empiric antibiotic coverage. Accepted for admission by critical care medicine service. I evaluated the patient following his arrival to the ICU. At that time he was sedated, orally intubated on mechanical ventilation. History obtained by reviewing records and discussion with patient's . 04/23: Remains sedated, orally intubated on mechanical ventilation. Blood cultures growing Escherichia coli. 04/24: remains intubated. blood and sputum growing e. coli. still no family reachable for bronch. 04/25: much more awake and alert. sputum and blood growing e. coli. Abx narrowed to Rocephin IV, total of 7 day course. hypoxia improving. 04/26: Sedated, orally intubated on mechanical ventilation. Tolerating tube feeds. Objective Vital Signs Date Time Temp Pulse Resp B/P (MAP) Pulse Ox O2 Delivery O2 Flow Rate FiO2 04/26/17 14:00 112 04/26/17 12:00 98.6 14 146/97 (113) 95 04/26/17 11:37 50 04/22/17 09:41 Ventilator Intake and Output 04/26/17 04/26/17 04/27/17 08:00 16:00 00:00 Intake Total 470 ml Output Total 1450 ml Balance -980 ml Result Diagram: 04/26/17 0454 04/26/17 0454 Other Results Laboratory Tests Test 04/26/17 04:54 White Blood Count 10.0 TH/MM3 Red Blood Count 4.02 MIL/MM3 Hemoglobin 9.8 GM/DL Hematocrit 30.7 % Mean Corpuscular Volume 76.3 FL Mean Corpuscular Hemoglobin 24.3 PG Mean Corpuscular Hemoglobin Concent 31.8 % Red Cell Distribution Width 17.8 % Platelet Count 253 TH/MM3 Mean Platelet Volume 6.8 FL Blood Urea Nitrogen 5 MG/DL Creatinine 0.65 MG/DL Random Glucose 81 MG/DL Calcium Level 8.7 MG/DL Sodium Level 141 MEQ/L Potassium Level 3.7 MEQ/L Chloride Level 104 MEQ/L Carbon Dioxide Level 29.4 MEQ/L Anion Gap 8 MEQ/L Estimat Glomerular Filtration Rate 154 ML/MIN Imaging Last 24 hours Impressions Chest X-Ray 04/23/17 0600 Signed Impressions: Service Date/Time: Sunday, April 23, 2017 03:07 - CONCLUSION: Worsening right lung base opacity probably collapsed lung obscuring previously seen mass or consolidation and there is also bilateral infiltrates mainly on the left side not present previously may represent pulmonary edema. Alexis Valdivia MD Last Impressions Chest X-Ray 04/22/17 06 Signed Impressions: Service Date/Time: Saturday, April 22, 2017 06:35 - CONCLUSION: Right lower lobe pneumonia. Alexis Valdivia MD Objective Remarks HEENT/ Neuro: Sedated, orally intubated, Pallor present, no icterus, tongue/ mucosa moist Neck: No JVD Chest/Pulm: on mech vent, air entry decreased over right base, scattered rhonchi , no wheezing or crackles CVS: S1-S2 regular, no murmur GI/abdomen: soft, nontender, bowel sounds sluggish Extremities: warm bilaterally, no edema A/P Assessment and Plan 56-year-old male with: Acute hypoxic respiratory failure requiring mechanical ventilation Right lower lobe pneumonia Severe sepsis - improving. Diabetes mellitus COPD E. Coli bacteremia E. Coli community acquired pneumonia Acute kidney injury Plan: Neuro: propofol for goal RASS -2. Daily sedation vacation. Follow neuro status. Cardiovascular: saline lock ivf. Pulmonary: Continue mechanical ventilation, vent bundle, bronchodilators. CT chest with densely infiltrative RLL consolidation. no appreciable pleural effusion. daily SBTs. GI/liver: Tolerating tube feeds. Renal/: strict intake output, monitor and replete electrolytes, follow BUN/ creatinine. ID: cultures growing e. coli. urine strep pneumo and legionella negative. d/c zosyn and azithromycin. start Rocephin 1gm iv q24h for total 7 day course of abx (anticipated stop date 04/30) Blood cultures growing Escherichia coli Endocrine: Watch for hyperglycemia, SSI for glycemic control if needed Heme: Follow CBC and coags. Prophylaxis: PPI/SCDs/Lovenox Overall impression: improvements in mental status and hypoxemia. still with densely consolidated RLL. may take a few days of weaning mechanical ventilation before ready to extubate. highly complex with ongoing multiple medical issues. Rubin Painter MD Apr 26, 2017 15:04
[2017-04-26] MEDS: traZODone HCL 50 MG TAB PO SCH (21:41)
[2017-04-26] MEDS: QUEtiapine FUMARATE 200 MG TAB PO SCH (21:41)
[2017-04-26] MEDS: BENZTROPINE MESYLATE 1 MG TAB PO SCH (21:41)
[2017-04-27] VITALS (18 sets, daily range): BP systolic 100–138; BP diastolic 62–81; PULSE 90–114; RESP 10–21; TEMP 98.3–99.8; O2SAT 93–100
[2017-04-27] MEDS: PROPOFOL 1000 MG/100 ML INJ 100 ML IV PRN ×4 (00:14→20:48)
[2017-04-27] MEDS: CHLORHEXIDINE GLUCONATE 2 % 1 PACK (2 CLOTHS) TOP SCH (04:00)
[2017-04-27] MEDS: RESP: ALBUTEROL 2.5 MG/IPRATROPIUM 0.5 MG NEB (SCH) INH ×4 (04:36→20:02)
[2017-04-27] MEDS: RESP: ACETYLCYSTEINE 10% 30 ML NEB NEB SCH ×4 (04:36→20:44)
[2017-04-27 05:15] LABS: HEMATOCRIT 28.6 % (39.0-51.0); HEMOGLOBIN 9.1 GM/DL (13.0-17.0); MEAN CELL VOLUME 75.8 FL (80.0-100.0); MEAN CORPUSCULAR HGB CONC 31.7 % (32.0-36.0); PLATELET COUNT 252 TH/MM3 (150-450); RED BLOOD COUNT 3.77 MIL/MM3 (4.50-5.90); RED CELL DISTRIBUTION WIDTH 17.7 % (11.6-17.2); WHITE BLOOD COUNT 8.4 TH/MM3 (4.0-11.0)
[2017-04-27 05:51] LABS: BICARBONATE 35.3 MEQ/L (21.0-32.0); CALCIUM 8.3 MG/DL (8.5-10.1); CREATININE 0.64 MG/DL (0.60-1.30)
[2017-04-27] MEDS: INSULIN ASPART SUPPLEMENTAL SCALE SQ SCH ×3 (06:00→17:28)
[2017-04-27] MEDS: fentaNYL DRIP 250 ML IV PRN ×2 (06:36→20:11)
[2017-04-27] MEDS: GABAPENTIN 300 MG CAP PO SCH ×3 (08:33→17:24)
[2017-04-27] MEDS: SODIUM CHLORIDE 0.9% FLUSH 10 ML FLUSH IV FLUSH SCH ×2 (08:33→21:40)
[2017-04-27] MEDS: ENOXAPARIN SODIUM 40 MG/0.4 ML SYRINGE SQ SCH (08:33)
[2017-04-27] MEDS: CILOSTAZOL 100 MG TAB PO SCH (08:33)
[2017-04-27] MEDS: PANTOPRAZOLE SOD 40 MG DELAYED RELEASE TAB PO SCH (09:00)
[2017-04-27] MEDS: buPROPion HCL 150 MG EXTENDED RELEASE TAB PO SCH (09:00)
[2017-04-27] MEDS: cefTRIAXone INJ 1,000 MG in SODIUM CHLORIDE 0.9% INJ 100 ML IV SCH (09:52)
[2017-04-27] MEDS: HALOPERIDOL 2 MG TAB PO SCH (09:52)
--- NOTE | 2017-04-27 10:26 | HHI.CCPN ---
Subjective Remarks/Hospital Course 04/22: 56-year-old man, 3-4 days cough cold symptoms, worsening trouble breathing, fevers and chills. History of COPD, diabetes, hypertension. Ran out of his nebulizers last night. Significant worsening shortness of breath, cough, fever or myalgias. No nausea or vomiting. History limited due to patient's marked respiratory distress. Patient initially placed on BiPAP however develop worsening respiratory distress and hence was emergently intubated and placed on mechanical ventilation by ER physician. His chest x- ray in the ER revealed right lower lobe pneumonia and after obtaining blood cultures he was initiated on empiric antibiotic coverage. Accepted for admission by critical care medicine service. I evaluated the patient following his arrival to the ICU. At that time he was sedated, orally intubated on mechanical ventilation. History obtained by reviewing records and discussion with patient's . 04/23: Remains sedated, orally intubated on mechanical ventilation. Blood cultures growing Escherichia coli. 04/24: remains intubated. blood and sputum growing e. coli. still no family reachable for bronch. 04/25: much more awake and alert. sputum and blood growing e. coli. Abx narrowed to Rocephin IV, total of 7 day course. hypoxia improving. 04/26: Sedated, orally intubated on mechanical ventilation. Tolerating tube feeds. 04/27: Remains sedated, orally intubated on mechanical ventilation. Having high residuals with tube feedings. Significant pulmonary secretions noted. Objective Vital Signs Date Time Temp Pulse Resp B/P (MAP) Pulse Ox O2 Delivery O2 Flow Rate FiO2 04/27/17 08:22 100 50 04/27/17 08:00 98.3 90 12 100/62 (75) Intake and Output 04/27/17 04/27/17 04/28/17 08:00 16:00 00:00 Intake Total 1254.4 ml Output Total 1050 ml Balance 204.4 ml Result Diagram: 04/27/17 0419 04/27/17 0419 Other Results Microbiology Date/Time Source Procedure Growth Status 04/24/17 11:47 Bronchial Washings Bronchial Gram Stain - Final Complete 04/24/17 11:47 Bronchial Washings Bronchial Bronchial Culture - Final NO GROWTH IN 48 HOURS. Complete Imaging Last 24 hours Impressions Chest X-Ray 04/23/17 0600 Signed Impressions: Service Date/Time: Sunday, April 23, 2017 03:07 - CONCLUSION: Worsening right lung base opacity probably collapsed lung obscuring previously seen mass or consolidation and there is also bilateral infiltrates mainly on the left side not present previously may represent pulmonary edema. Alexis Valdivia MD Last Impressions Chest X-Ray 04/22/17 0629 Signed Impressions: Service Date/Time: Saturday, April 22, 2017 06:35 - CONCLUSION: Right lower lobe pneumonia. Alexis Valdivia MD Objective Remarks HEENT/ Neuro: Sedated, orally intubated, Pallor present, no icterus, tongue/ mucosa moist Neck: No JVD Chest/Pulm: on mech vent, air entry decreased over right base, scattered rhonchi , no wheezing or crackles CVS: S1-S2 regular, no murmur GI/abdomen: soft, nontender, bowel sounds sluggish Extremities: warm bilaterally, no edema A/P Assessment and Plan 56-year-old male with: Acute hypoxic respiratory failure requiring mechanical ventilation Right lower lobe pneumonia Severe sepsis - improving. Diabetes mellitus COPD E. Coli bacteremia E. Coli community acquired pneumonia Acute kidney injury Plan: Neuro: propofol/fentanyl for goal RASS -2. Daily sedation vacation. Follow neuro status. We will add Ativan when necessary and decrease fentanyl in view of high tube feed residuals. Cardiovascular: saline lock ivf. Pulmonary: Continue mechanical ventilation, vent bundle, bronchodilators. CT chest with densely infiltrative RLL consolidation. no appreciable pleural effusion. daily SBTs. GI/liver: Tolerating tube feeds. High residuals noted. Will decrease narcotics and add Reglan and laxatives. Renal/: strict intake output, monitor and replete electrolytes, follow BUN/ creatinine. ID: cultures growing e. coli. urine strep pneumo and legionella negative. d/c zosyn and azithromycin. started Rocephin 1gm iv q24h for total 7 day course of abx (anticipated stop date 04/30) Blood cultures growing Escherichia coli Endocrine: Watch for hyperglycemia, SSI for glycemic control if needed Heme: Follow CBC and coags. Prophylaxis: PPI/SCDs/Lovenox Overall impression: improvements in mental status and hypoxemia. still with densely consolidated RLL. may take a few days of weaning mechanical ventilation before ready to extubate. highly complex with ongoing multiple medical issues. Nemani,Rubin K. MD Apr 27, 2017 10:26
[2017-04-27] MEDS ORDERED: BISACODYL 10 MG SUPP RECTAL PRN (10:30)
[2017-04-27] MEDS ORDERED: LORazepam 2 MG/ML VIAL IV PUSH PRN (10:30)
[2017-04-27] MEDS ORDERED: fentaNYL DRIP 250 ML IV PRN (10:30)
[2017-04-27] MEDS ORDERED: chlordiazePOXIDE 25 MG CAP OG-TUBE ONE (11:00)
[2017-04-27] MEDS: MAGNESIUM HYDROXIDE SUSP 30 ML CUP PO PRN (11:11)
[2017-04-27] MEDS: SENNOSIDES 8.6 MG TAB PO PRN (11:11)
[2017-04-27] MEDS: METOCLOPRAMIDE HCL 10 MG/2 ML VIAL IV PUSH SCH ×2 (12:13→21:41)
[2017-04-27] MEDS: LACTULOSE SYRUP 20 GM/30 ML CUP PO PRN (17:32)
[2017-04-27] MEDS: BENZTROPINE MESYLATE 1 MG TAB PO SCH (21:41)
[2017-04-27] MEDS: DOCUSATE SODIUM 50 MG/SENNA 8.6 MG TAB PO SCH (21:41)
[2017-04-27] MEDS: QUEtiapine FUMARATE 200 MG TAB PO SCH (21:41)
[2017-04-27] MEDS: traZODone HCL 50 MG TAB PO SCH (21:41)
[2017-04-28] VITALS (18 sets, daily range): BP systolic 111–148; BP diastolic 63–81; PULSE 101–112; RESP 14–26; TEMP 98.9–99.3; O2SAT 89–98
[2017-04-28] MEDS: CHLORHEXIDINE GLUCONATE 2 % 1 PACK (2 CLOTHS) TOP SCH (02:47)
[2017-04-28] MEDS: RESP: ACETYLCYSTEINE 10% 30 ML NEB NEB SCH ×4 (03:03→19:44)
[2017-04-28] MEDS: RESP: ALBUTEROL 2.5 MG/IPRATROPIUM 0.5 MG NEB (SCH) INH ×4 (03:03→19:44)
[2017-04-28] MEDS: PROPOFOL 1000 MG/100 ML INJ 100 ML IV PRN ×4 (03:08→21:52)
--- NOTE | 2017-04-28 04:59 | RADRPT ---
EXAM DATE/TIME: 04/28/2017 03:10 [facility] COMPARISON: CHEST SINGLE AP, April 24, 2017, 13:41. INDICATIONS : Shortness of breath, possible pulmonary disease. MEDICAL HISTORY : Hypertension. Chronic obstructive pulmonary disease. SURGICAL HISTORY : Appendectomy. ENCOUNTER: Subsequent ACUITY: 1 week PAIN SCORE: Non-responsive. LOCATION: Bilateral chest FINDINGS: A single portable frontal view the chest shows an endotracheal tube with the tip 4 cm proximal to car ainsley. Nasogastric tube courses off the inferior margin of the film. Small right effusion and right low er lobe infiltrate are unchanged. A new consolidation within the left lung base. No effusion on the l eft. Heart is normal in size. CONCLUSION: 1. Unchanged right effusion and right lower lobe infiltrate. 2. New infiltrate left lung base. Jose Armando Vázquez Jr., MD on April 28, 2017 at 4:57 Board Certified Radiologist. This report was verified electronically.
[2017-04-28] MEDS: INSULIN ASPART SUPPLEMENTAL SCALE SQ SCH ×4 (06:00→17:19)
[2017-04-28] MEDS: METOCLOPRAMIDE HCL 10 MG/2 ML VIAL IV PUSH SCH ×3 (06:09→20:14)
[2017-04-28 06:36] LABS: HEMATOCRIT 31.6 % (39.0-51.0); MEAN CELL VOLUME 75.7 FL (80.0-100.0); MEAN CORPUSCULAR HGB CONC 31.7 % (32.0-36.0); MEAN PLATELET VOLUME 6.9 FL (7.0-11.0); PLATELET COUNT 290 TH/MM3 (150-450); RED BLOOD COUNT 4.18 MIL/MM3 (4.50-5.90); RED CELL DISTRIBUTION WIDTH 17.8 % (11.6-17.2); WHITE BLOOD COUNT 7.8 TH/MM3 (4.0-11.0)
[2017-04-28 06:47] LABS: BICARBONATE 33.7 MEQ/L (21.0-32.0); CALCIUM 8.6 MG/DL (8.5-10.1); CREATININE 0.64 MG/DL (0.60-1.30)
[2017-04-28] MEDS: cefTRIAXone INJ 1,000 MG in SODIUM CHLORIDE 0.9% INJ 100 ML IV SCH (08:45)
[2017-04-28] MEDS: CILOSTAZOL 100 MG TAB PO SCH (08:52)
[2017-04-28] MEDS: GABAPENTIN 300 MG CAP PO SCH ×3 (08:52→17:19)
[2017-04-28] MEDS: DOCUSATE SODIUM 50 MG/SENNA 8.6 MG TAB PO SCH ×2 (08:52→20:14)
[2017-04-28] MEDS: PANTOPRAZOLE SOD 40 MG DELAYED RELEASE TAB PO SCH (08:53)
[2017-04-28] MEDS: HALOPERIDOL 2 MG TAB PO SCH (08:53)
[2017-04-28] MEDS: buPROPion HCL 150 MG EXTENDED RELEASE TAB PO SCH (08:53)
[2017-04-28] MEDS: SODIUM CHLORIDE 0.9% FLUSH 10 ML FLUSH IV FLUSH SCH ×2 (08:53→20:14)
[2017-04-28] MEDS: ENOXAPARIN SODIUM 40 MG/0.4 ML SYRINGE SQ SCH (08:53)
--- NOTE | 2017-04-28 11:53 | HHI.CCPN ---
Subjective Remarks/Hospital Course 04/22: 56-year-old man, 3-4 days cough cold symptoms, worsening trouble breathing, fevers and chills. History of COPD, diabetes, hypertension. Ran out of his nebulizers last night. Significant worsening shortness of breath, cough, fever or myalgias. No nausea or vomiting. History limited due to patient's marked respiratory distress. Patient initially placed on BiPAP however develop worsening respiratory distress and hence was emergently intubated and placed on mechanical ventilation by ER physician. His chest x- ray in the ER revealed right lower lobe pneumonia and after obtaining blood cultures he was initiated on empiric antibiotic coverage. Accepted for admission by critical care medicine service. I evaluated the patient following his arrival to the ICU. At that time he was sedated, orally intubated on mechanical ventilation. History obtained by reviewing records and discussion with patient's . 04/23: Remains sedated, orally intubated on mechanical ventilation. Blood cultures growing Escherichia coli. 04/24: remains intubated. blood and sputum growing e. coli. still no family reachable for bronch. 04/25: much more awake and alert. sputum and blood growing e. coli. Abx narrowed to Rocephin IV, total of 7 day course. hypoxia improving. 04/26: Sedated, orally intubated on mechanical ventilation. Tolerating tube feeds. 04/27: Remains sedated, orally intubated on mechanical ventilation. Having high residuals with tube feedings. Significant pulmonary secretions noted. 04/28: Sedated, orally intubated on mechanical ventilation. Failed C Pap trial. Objective Vital Signs Date Time Temp Pulse Resp B/P (MAP) Pulse Ox O2 Delivery O2 Flow Rate FiO2 04/28/17 11:30 40 04/28/17 11:22 94 04/28/17 10:00 107 04/28/17 08:00 99.3 20 142/77 (98) Intake and Output 04/28/17 04/28/17 04/29/17 08:00 16:00 00:00 Intake Total 1113.8 ml 133 ml Output Total 700 ml Balance 413.8 ml 133 ml Result Diagram: 04/28/17 0604 04/28/17 0604 Imaging Last 24 hours Impressions Chest X-Ray 04/23/17 0600 Signed Impressions: Service Date/Time: Sunday, April 23, 2017 03:07 - CONCLUSION: Worsening right lung base opacity probably collapsed lung obscuring previously seen mass or consolidation and there is also bilateral infiltrates mainly on the left side not present previously may represent pulmonary edema. Alexis Valdivia MD Last Impressions Chest X-Ray 04/22/17 0629 Signed Impressions: Service Date/Time: Saturday, April 22, 2017 06:35 - CONCLUSION: Right lower lobe pneumonia. Alexis Valdivia MD Objective Remarks HEENT/ Neuro: Sedated, orally intubated, Pallor present, no icterus, tongue/ mucosa moist Neck: No JVD Chest/Pulm: on mech vent, air entry decreased over right base, scattered rhonchi , no wheezing or crackles CVS: S1-S2 regular, no murmur GI/abdomen: soft, nontender, bowel sounds sluggish Extremities: warm bilaterally, no edema A/P Assessment and Plan 56-year-old male with: Acute hypoxic respiratory failure requiring mechanical ventilation Right lower lobe pneumonia Severe sepsis - improving. Diabetes mellitus COPD E. Coli bacteremia E. Coli community acquired pneumonia Acute kidney injury Plan: Neuro: propofol/fentanyl for goal RASS -2. Daily sedation vacation. Follow neuro status. We will add Ativan when necessary and decrease fentanyl in view of high tube feed residuals. Cardiovascular: saline lock ivf. Pulmonary: Continue mechanical ventilation, vent bundle, bronchodilators. CT chest with densely infiltrative RLL consolidation. no appreciable pleural effusion. daily SBTs. GI/liver: Tolerating tube feeds. High residuals noted. Will decrease narcotics and add Reglan and laxatives. Renal/: strict intake output, monitor and replete electrolytes, follow BUN/ creatinine. ID: cultures growing e. coli. urine strep pneumo and legionella negative. d/c zosyn and azithromycin. started Rocephin 1gm iv q24h for total 7 day course of abx (anticipated stop date 04/30) Blood cultures growing Escherichia coli Endocrine: Watch for hyperglycemia, SSI for glycemic control if needed Heme: Follow CBC and coags. Prophylaxis: PPI/SCDs/Lovenox Overall impression: improvements in mental status and hypoxemia. still with densely consolidated RLL. may take a few days of weaning mechanical ventilation before ready to extubate. highly complex with ongoing multiple medical issues. Rubin Painter MD Apr 28, 2017 11:53
[2017-04-28] MEDS: fentaNYL DRIP 250 ML IV PRN (15:39)
[2017-04-28] MEDS: BENZTROPINE MESYLATE 1 MG TAB PO SCH (20:15)
[2017-04-28] MEDS: traZODone HCL 50 MG TAB PO SCH (20:15)
[2017-04-28] MEDS: QUEtiapine FUMARATE 200 MG TAB PO SCH (21:51)
[2017-04-29] VITALS (19 sets, daily range): BP systolic 103–126; BP diastolic 69–87; PULSE 87–112; RESP 15–23; TEMP 98.7–99.6; O2SAT 90–99
[2017-04-29] MEDS: CHLORHEXIDINE GLUCONATE 2 % 1 PACK (2 CLOTHS) TOP SCH (01:07)
[2017-04-29] MEDS: RESP: ALBUTEROL 2.5 MG/IPRATROPIUM 0.5 MG NEB (SCH) INH ×2 (03:03→08:44)
[2017-04-29] MEDS: RESP: ACETYLCYSTEINE 10% 30 ML NEB NEB SCH ×4 (03:03→20:37)
[2017-04-29] MEDS: PROPOFOL 1000 MG/100 ML INJ 100 ML IV PRN ×5 (04:06→23:15)
[2017-04-29] MEDS: INSULIN ASPART SUPPLEMENTAL SCALE SQ SCH ×5 (04:50→23:18)
[2017-04-29] MEDS: METOCLOPRAMIDE HCL 10 MG/2 ML VIAL IV PUSH SCH ×3 (04:51→20:18)
[2017-04-29 05:23] LABS: HEMATOCRIT 29.1 % (39.0-51.0); HEMOGLOBIN 9.4 GM/DL (13.0-17.0); MEAN CELL VOLUME 75.4 FL (80.0-100.0); MEAN CORPUSCULAR HEMOGLOBIN 24.3 PG (27.0-34.0); MEAN CORPUSCULAR HGB CONC 32.3 % (32.0-36.0); MEAN PLATELET VOLUME 6.9 FL (7.0-11.0); PLATELET COUNT 336 TH/MM3 (150-450); RED BLOOD COUNT 3.86 MIL/MM3 (4.50-5.90); RED CELL DISTRIBUTION WIDTH 17.4 % (11.6-17.2); WHITE BLOOD COUNT 8.7 TH/MM3 (4.0-11.0)
[2017-04-29 05:42] LABS: BICARBONATE 33.1 MEQ/L (21.0-32.0); CALCIUM 8.5 MG/DL (8.5-10.1); CREATININE 0.68 MG/DL (0.60-1.30)
[2017-04-29] MEDS: cefTRIAXone INJ 1,000 MG in SODIUM CHLORIDE 0.9% INJ 100 ML IV SCH (07:57)
[2017-04-29] MEDS: SENNOSIDES 8.6 MG TAB PO PRN (07:58)
[2017-04-29] MEDS: LACTULOSE SYRUP 20 GM/30 ML CUP PO PRN (07:58)
[2017-04-29] MEDS: ENOXAPARIN SODIUM 40 MG/0.4 ML SYRINGE SQ SCH (07:58)
[2017-04-29] MEDS: MAGNESIUM HYDROXIDE SUSP 30 ML CUP PO PRN (07:58)
[2017-04-29] MEDS: GABAPENTIN 300 MG CAP PO SCH ×3 (07:58→17:30)
[2017-04-29] MEDS: buPROPion HCL 150 MG EXTENDED RELEASE TAB PO SCH (07:58)
[2017-04-29] MEDS: SODIUM CHLORIDE 0.9% FLUSH 10 ML FLUSH IV FLUSH SCH ×2 (07:59→19:13)
[2017-04-29] MEDS: DOCUSATE SODIUM 50 MG/SENNA 8.6 MG TAB PO SCH ×2 (07:59→19:13)
[2017-04-29] MEDS: PANTOPRAZOLE SOD 40 MG DELAYED RELEASE TAB PO SCH (07:59)
[2017-04-29] MEDS: CILOSTAZOL 100 MG TAB PO SCH (07:59)
[2017-04-29] MEDS: HALOPERIDOL 2 MG TAB PO SCH (07:59)
[2017-04-29] MEDS: fentaNYL DRIP 250 ML IV PRN (09:48)
[2017-04-29] MEDS: DEXMEDETOMIDINE 200 MCG in NS 48 ML IV PRN ×2 (11:37→12:01)
[2017-04-29] MEDS: RESP: ALBUTEROL 2.5 MG/IPRATROPIUM 0.5 MG NEB (PRN) INH ×2 (16:11→20:37)
--- NOTE | 2017-04-29 17:45 | HHI.CCPN ---
Subjective Remarks/Hospital Course 04/22: 56-year-old man, 3-4 days cough cold symptoms, worsening trouble breathing, fevers and chills. History of COPD, diabetes, hypertension. Ran out of his nebulizers last night. Significant worsening shortness of breath, cough, fever or myalgias. No nausea or vomiting. History limited due to patient's marked respiratory distress. Patient initially placed on BiPAP however develop worsening respiratory distress and hence was emergently intubated and placed on mechanical ventilation by ER physician. His chest x- ray in the ER revealed right lower lobe pneumonia and after obtaining blood cultures he was initiated on empiric antibiotic coverage. Accepted for admission by critical care medicine service. I evaluated the patient following his arrival to the ICU. At that time he was sedated, orally intubated on mechanical ventilation. History obtained by reviewing records and discussion with patient's . 04/23: Remains sedated, orally intubated on mechanical ventilation. Blood cultures growing Escherichia coli. 04/24: remains intubated. blood and sputum growing e. coli. still no family reachable for bronch. 04/25: much more awake and alert. sputum and blood growing e. coli. Abx narrowed to Rocephin IV, total of 7 day course. hypoxia improving. 04/26: Sedated, orally intubated on mechanical ventilation. Tolerating tube feeds. 04/27: Remains sedated, orally intubated on mechanical ventilation. Having high residuals with tube feedings. Significant pulmonary secretions noted. 04/28: Sedated, orally intubated on mechanical ventilation. Failed C Pap trial. 04/29: Patient failed CPAP trials, patient noted to have not have a bowel movement for greater than 6 days, fleets enema ordered. X-ray revealed new infiltrate of left lung base Objective Vital Signs Date Time Temp Pulse Resp B/P (MAP) Pulse Ox O2 Delivery O2 Flow Rate FiO2 04/29/17 16:16 92 50 04/29/17 14:00 87 04/29/17 12:00 99.6 23 126/75 (92) Intake and Output 04/29/17 04/29/17 04/30/17 08:00 16:00 00:00 Intake Total 1230.8 ml 345 ml Output Total 900 ml Balance 330.8 ml 345 ml Result Diagram: 04/29/17 0443 04/29/17 0443 Imaging Last 24 hours Impressions Chest X-Ray 04/23/17 0600 Signed Impressions: Service Date/Time: Sunday, April 23, 2017 03:07 - CONCLUSION: Worsening right lung base opacity probably collapsed lung obscuring previously seen mass or consolidation and there is also bilateral infiltrates mainly on the left side not present previously may represent pulmonary edema. Alexis Valdivia MD Last Impressions Chest X-Ray 04/22/17 0629 Signed Impressions: Service Date/Time: Saturday, April 22, 2017 06:35 - CONCLUSION: Right lower lobe pneumonia. Alexis Valdivia MD Objective Remarks Gen: Critically ill-appearing male patient HEENT/ Neuro: Sedated, orally intubated, Pallor present, no icterus, tongue/ mucosa moist Neck: No JVD Chest/Pulm: on mech vent, air entry decreased over right base, scattered rhonchi , no wheezing or crackles CVS: S1-S2 regular, no murmur GI/abdomen: soft, nontender, bowel sounds sluggish Extremities: warm bilaterally, no edema A/P Assessment and Plan 56-year-old male with: Acute hypoxic respiratory failure requiring mechanical ventilation Right lower lobe pneumonia Severe sepsis - improving. Diabetes mellitus COPD E. Coli bacteremia E. Coli community acquired pneumonia Acute kidney injury Plan: Neuro: propofol/fentanyl for goal RASS -2. Daily sedation vacation. Follow neuro status. We will add Ativan when necessary and decrease fentanyl in view of high tube feed residuals. Cardiovascular: saline lock ivf. Pulmonary: Continue mechanical ventilation, vent bundle, bronchodilators. CT chest with densely infiltrative RLL consolidation. no appreciable pleural effusion. daily SBTs.1/3 new infiltrate left lower lobe GI/liver: Tolerating tube feeds. High residuals noted. Will decrease narcotics and add Reglan and laxatives. Renal/: strict intake output, monitor and replete electrolytes, follow BUN/ creatinine. ID: cultures growing e. coli. urine strep pneumo and legionella negative. d/c zosyn and azithromycin. started Rocephin 1gm iv q24h for total 7 day course of abx (anticipated stop date 04/30) Blood cultures growing Escherichia coli Endocrine: Watch for hyperglycemia, SSI for glycemic control if needed Heme: Follow CBC and coags. Prophylaxis: PPI/SCDs/Lovenox Overall impression: improvements in mental status and hypoxemia. still with densely consolidated RLL. may take a few days of weaning mechanical ventilation before ready to extubate. highly complex with ongoing multiple medical issues. Dispo: my billing statement This patient remains critically ill with one or more organ systems which are or may become a threat to life. I have spent in excess of 31 minutes discontinuously in the care and management of this patient. This time is exclusive of procedures, and includes, but is not limited to, evaluation of the patient, review of the medical record, discussions with family, consultants, nursing staff, or respiratory therapy, and documentation in the medical record. D/W ELECTRIC REFRIGERATOR SERVICER at bedside Physician Nhi Adler MD Apr 29, 2017 17:44
[2017-04-29] MEDS: traZODone HCL 50 MG TAB PO SCH (19:13)
[2017-04-29] MEDS: BENZTROPINE MESYLATE 1 MG TAB PO SCH (19:13)
[2017-04-29] MEDS ORDERED: SOD PHOSPHATE/SOD BIPHOSPHATE (ADULT) ENEMA 133ML RECTAL ONE (20:00)
[2017-04-29] MEDS: QUEtiapine FUMARATE 200 MG TAB PO SCH (20:18)
--- NOTE | 2017-04-29 21:34 | RADRPT ---
EXAM DATE/TIME: 04/29/2017 21:14 [facility] COMPARISON: CHEST SINGLE AP, April 28, 2017, 3:10. INDICATIONS : Short of breath. MEDICAL HISTORY : Hypertension. Chronic obstructive pulmonary disease. SURGICAL HISTORY : Appendectomy. ENCOUNTER: Subsequent ACUITY: 1 week PAIN SCORE: 0/10 LOCATION: Bilateral chest FINDINGS: A single view of the chest demonstrates bibasilar patchy densities with slight improvement in the rig ht lower lobe. Endotracheal tube and nasogastric tube unchanged.. Osseous structures are intact. CONCLUSION: 1. Bibasilar patchy infiltrates with slight improvement in the right lower lobe. Hermann Howard MD on April 29, 2017 at 21:32 Board Certified Radiologist. This report was verified electronically.
[2017-04-30] VITALS (18 sets, daily range): BP systolic 89–125; BP diastolic 57–80; PULSE 104–117; RESP 14–108; TEMP 98.9–100.2; O2SAT 90–96
[2017-04-30] MEDS: CHLORHEXIDINE GLUCONATE 2 % 1 PACK (2 CLOTHS) TOP SCH (02:08)
[2017-04-30] MEDS: PROPOFOL 1000 MG/100 ML INJ 100 ML IV PRN ×5 (02:44→20:36)
[2017-04-30] MEDS: RESP: ALBUTEROL 2.5 MG/IPRATROPIUM 0.5 MG NEB (PRN) INH ×4 (03:54→21:24)
[2017-04-30] MEDS: RESP: ACETYLCYSTEINE 10% 30 ML NEB NEB SCH ×3 (03:54→15:03)
[2017-04-30] MEDS: METOCLOPRAMIDE HCL 10 MG/2 ML VIAL IV PUSH SCH ×3 (04:34→21:30)
[2017-04-30] MEDS: INSULIN ASPART SUPPLEMENTAL SCALE SQ SCH ×3 (04:37→17:58)
[2017-04-30] MEDS: fentaNYL DRIP 250 ML IV PRN ×2 (05:10→23:08)
[2017-04-30 05:22] LABS: HEMATOCRIT 31.1 % (39.0-51.0); MEAN CELL VOLUME 74.3 FL (80.0-100.0); MEAN CORPUSCULAR HEMOGLOBIN 23.9 PG (27.0-34.0); MEAN CORPUSCULAR HGB CONC 32.2 % (32.0-36.0); PLATELET COUNT 414 TH/MM3 (150-450); RED BLOOD COUNT 4.19 MIL/MM3 (4.50-5.90); RED CELL DISTRIBUTION WIDTH 17.7 % (11.6-17.2); WHITE BLOOD COUNT 12.3 TH/MM3 (4.0-11.0)
[2017-04-30 05:40] LABS: BICARBONATE 33.1 MEQ/L (21.0-32.0); CALCIUM 8.8 MG/DL (8.5-10.1); CREATININE 1.11 MG/DL (0.60-1.30)
[2017-04-30] MEDS: CILOSTAZOL 100 MG TAB PO SCH (07:34)
[2017-04-30] MEDS: ENOXAPARIN SODIUM 40 MG/0.4 ML SYRINGE SQ SCH (07:34)
[2017-04-30] MEDS: HALOPERIDOL 2 MG TAB PO SCH (07:34)
[2017-04-30] MEDS: GABAPENTIN 300 MG CAP PO SCH ×3 (07:34→17:58)
[2017-04-30] MEDS: buPROPion HCL 150 MG EXTENDED RELEASE TAB PO SCH (07:34)
[2017-04-30] MEDS: PANTOPRAZOLE SOD 40 MG DELAYED RELEASE TAB PO SCH (07:34)
[2017-04-30] MEDS: DOCUSATE SODIUM 50 MG/SENNA 8.6 MG TAB PO SCH ×2 (07:35→21:30)
[2017-04-30] MEDS: SODIUM CHLORIDE 0.9% FLUSH 10 ML FLUSH IV FLUSH SCH ×2 (07:35→21:31)
--- NOTE | 2017-04-30 18:30 | HHI.CCPN ---
Subjective Remarks/Hospital Course 04/22: 56-year-old man, 3-4 days cough cold symptoms, worsening trouble breathing, fevers and chills. History of COPD, diabetes, hypertension. Ran out of his nebulizers last night. Significant worsening shortness of breath, cough, fever or myalgias. No nausea or vomiting. History limited due to patient's marked respiratory distress. Patient initially placed on BiPAP however develop worsening respiratory distress and hence was emergently intubated and placed on mechanical ventilation by ER physician. His chest x- ray in the ER revealed right lower lobe pneumonia and after obtaining blood cultures he was initiated on empiric antibiotic coverage. Accepted for admission by critical care medicine service. I evaluated the patient following his arrival to the ICU. At that time he was sedated, orally intubated on mechanical ventilation. History obtained by reviewing records and discussion with patient's . 04/23: Remains sedated, orally intubated on mechanical ventilation. Blood cultures growing Escherichia coli. 04/24: remains intubated. blood and sputum growing e. coli. still no family reachable for bronch. 04/25: much more awake and alert. sputum and blood growing e. coli. Abx narrowed to Rocephin IV, total of 7 day course. hypoxia improving. 04/26: Sedated, orally intubated on mechanical ventilation. Tolerating tube feeds. 04/27: Remains sedated, orally intubated on mechanical ventilation. Having high residuals with tube feedings. Significant pulmonary secretions noted. 04/28: Sedated, orally intubated on mechanical ventilation. Failed C Pap trial. 04/29: Patient failed CPAP trials, patient noted to have not have a bowel movement for greater than 6 days, fleets enema ordered. X-ray revealed new infiltrate of left lung base. 04/30: Patient had 4 bowel movements status post fleets enema in the last 12 hours. The patient had an episode of increasing FiO2 requirements during the night. Patient still noted to have significant pulmonary secretions. Tube feed residuals minimal. Objective Vital Signs Date Time Temp Pulse Resp B/P (MAP) Pulse Ox O2 Delivery O2 Flow Rate FiO2 04/30/17 16:00 108 04/30/17 16:00 60 04/30/17 16:00 99.3 16 121/73 (89) 94 Intake and Output 04/30/17 04/30/17 05/01/17 08:00 16:00 00:00 Intake Total 1119 ml 172 ml Output Total 600 ml Balance 519 ml 172 ml Result Diagram: 04/30/17 0456 04/30/17 0456 Imaging Last 24 hours Impressions Chest X-Ray 04/23/17 0600 Signed Impressions: Service Date/Time: Sunday, April 23, 2017 03:07 - CONCLUSION: Worsening right lung base opacity probably collapsed lung obscuring previously seen mass or consolidation and there is also bilateral infiltrates mainly on the left side not present previously may represent pulmonary edema. Alexis Valdivia MD Last Impressions Chest X-Ray 04/22/17 0629 Signed Impressions: Service Date/Time: Saturday, April 22, 2017 06:35 - CONCLUSION: Right lower lobe pneumonia. Alexis Valdivia MD Objective Remarks Gen: Critically ill-appearing male patient intubated and sedated HEENT/ Neuro: Sedated, orally intubated, Pallor present, no icterus, tongue/ mucosa moist Neck: No JVD Chest/Pulm: on mech vent, air entry decreased over right base, scattered rhonchi , no wheezing or crackles CVS: S1-S2 regular, no murmur GI/abdomen: soft, nontender, bowel sounds sluggish Extremities: warm bilaterally, no edema A/P Assessment and Plan 56-year-old male with: Acute hypoxic respiratory failure requiring mechanical ventilation Right lower lobe pneumonia Severe sepsis - improving. Diabetes mellitus COPD E. Coli bacteremia E. Coli community acquired pneumonia Acute kidney injury Persistent leukocytosis Plan: Neuro: propofol/fentanyl for goal RASS -2. Daily sedation vacation. Follow neuro status. We will add Ativan when necessary. Cardiovascular: saline lock ivf. Pulmonary: Continue mechanical ventilation, vent bundle, bronchodilators. CT chest with densely infiltrative RLL consolidation. no appreciable pleural effusion. daily SBTs.1/3 new infiltrate left lower lobe GI/liver: Tolerating tube feeds. High residuals noted. Will decrease narcotics and add Reglan and laxatives. Renal/: strict intake output, monitor and replete electrolytes, follow BUN/ creatinine. ID: cultures growing e. coli. urine strep pneumo and legionella negative. d/c zosyn and azithromycin. started Rocephin 1gm iv q24h for total 7 day course of abx (anticipated stop date 04/30) ID consulted appreciate recommendations Blood cultures growing Escherichia coli Endocrine: Watch for hyperglycemia, SSI for glycemic control if needed Heme: Follow CBC and coags. Prophylaxis: PPI/SCDs/Lovenox Overall impression: improvements in mental status and hypoxemia. still with densely consolidated RLL. may take a few days of weaning mechanical ventilation before ready to extubate. highly complex with ongoing multiple medical issues. Dispo: my billing statement This patient remains critically ill with one or more organ systems which are or may become a threat to life. I have spent in excess of 33 minutes discontinuously in the care and management of this patient. This time is exclusive of procedures, and includes, but is not limited to, evaluation of the patient, review of the medical record, discussions with family, consultants, nursing staff, or respiratory therapy, and documentation in the medical record. D/W PROFILE SHAPER OPERATOR at bedside Physician Nhi Adler MD Apr 30, 2017 18:30
[2017-04-30] MEDS: traZODone HCL 50 MG TAB PO SCH (21:30)
[2017-04-30] MEDS: BENZTROPINE MESYLATE 1 MG TAB PO SCH (21:30)
[2017-04-30] MEDS: QUEtiapine FUMARATE 200 MG TAB PO SCH (21:31)
[2017-05-01] VITALS (18 sets, daily range): BP systolic 107–119; BP diastolic 61–81; PULSE 87–115; RESP 15–19; TEMP 98.7–99.5; O2SAT 92–97
[2017-05-01] MEDS: INSULIN ASPART SUPPLEMENTAL SCALE SQ SCH ×4 (00:16→17:01)
[2017-05-01] MEDS: PROPOFOL 1000 MG/100 ML INJ 100 ML IV PRN ×6 (00:47→23:39)
[2017-05-01] MEDS: CHLORHEXIDINE GLUCONATE 2 % 1 PACK (2 CLOTHS) TOP SCH (04:00)
[2017-05-01] MEDS: METOCLOPRAMIDE HCL 10 MG/2 ML VIAL IV PUSH SCH ×3 (05:09→21:14)
[2017-05-01 07:48] LABS: BICARBONATE 32.8 MEQ/L (21.0-32.0); CALCIUM 8.8 MG/DL (8.5-10.1); CREATININE 0.84 MG/DL (0.60-1.30)
[2017-05-01 07:57] LABS: HEMATOCRIT 33.6 % (39.0-51.0); HEMOGLOBIN 10.7 GM/DL (13.0-17.0); MEAN CELL VOLUME 75.1 FL (80.0-100.0); MEAN PLATELET VOLUME 7.2 FL (7.0-11.0); PLATELET COUNT 437 TH/MM3 (150-450); RED BLOOD COUNT 4.47 MIL/MM3 (4.50-5.90); RED CELL DISTRIBUTION WIDTH 17.7 % (11.6-17.2); WHITE BLOOD COUNT 12.9 TH/MM3 (4.0-11.0)
[2017-05-01] MEDS: SODIUM CHLORIDE 0.9% FLUSH 10 ML FLUSH IV FLUSH SCH ×2 (08:55→21:15)
[2017-05-01] MEDS: ENOXAPARIN SODIUM 40 MG/0.4 ML SYRINGE SQ SCH (08:56)
[2017-05-01] MEDS: CILOSTAZOL 100 MG TAB PO SCH (08:56)
[2017-05-01] MEDS: DOCUSATE SODIUM 50 MG/SENNA 8.6 MG TAB PO SCH ×2 (08:56→21:14)
[2017-05-01] MEDS: GABAPENTIN 300 MG CAP PO SCH ×3 (08:56→17:00)
[2017-05-01] MEDS: buPROPion HCL 150 MG EXTENDED RELEASE TAB PO SCH (08:56)
[2017-05-01] MEDS: HALOPERIDOL 2 MG TAB PO SCH (08:57)
[2017-05-01] MEDS: PANTOPRAZOLE SOD 40 MG DELAYED RELEASE TAB PO SCH (08:57)
[2017-05-01] MEDS: RESP: ALBUTEROL 2.5 MG/IPRATROPIUM 0.5 MG NEB (PRN) INH ×2 (11:20→19:59)
[2017-05-01] MEDS: ONDANSETRON HCL 4 MG/2 ML VIAL IV PUSH PRN (12:57)
--- NOTE | 2017-05-01 17:12 | HHI.CCPN ---
Subjective Remarks/Hospital Course 04/22: 56-year-old man, 3-4 days cough cold symptoms, worsening trouble breathing, fevers and chills. History of COPD, diabetes, hypertension. Ran out of his nebulizers last night. Significant worsening shortness of breath, cough, fever or myalgias. No nausea or vomiting. History limited due to patient's marked respiratory distress. Patient initially placed on BiPAP however develop worsening respiratory distress and hence was emergently intubated and placed on mechanical ventilation by ER physician. His chest x- ray in the ER revealed right lower lobe pneumonia and after obtaining blood cultures he was initiated on empiric antibiotic coverage. Accepted for admission by critical care medicine service. I evaluated the patient following his arrival to the ICU. At that time he was sedated, orally intubated on mechanical ventilation. History obtained by reviewing records and discussion with patient's . 04/23: Remains sedated, orally intubated on mechanical ventilation. Blood cultures growing Escherichia coli. 04/24: remains intubated. blood and sputum growing e. coli. still no family reachable for bronch. 04/25: much more awake and alert. sputum and blood growing e. coli. Abx narrowed to Rocephin IV, total of 7 day course. hypoxia improving. 04/26: Sedated, orally intubated on mechanical ventilation. Tolerating tube feeds. 04/27: Remains sedated, orally intubated on mechanical ventilation. Having high residuals with tube feedings. Significant pulmonary secretions noted. 04/28: Sedated, orally intubated on mechanical ventilation. Failed C Pap trial. 04/29: Patient failed CPAP trials, patient noted to have not have a bowel movement for greater than 6 days, fleets enema ordered. X-ray revealed new infiltrate of left lung base. 04/30: Patient had 4 bowel movements status post fleets enema in the last 12 hours. The patient had an episode of increasing FiO2 requirements during the night. Patient still noted to have significant pulmonary secretions. Tube feed residuals minimal. 05/01: Patient continues on CPAP trials greater than 8 hours. Tolerating tube feeds. Objective Vital Signs Date Time Temp Pulse Resp B/P (MAP) Pulse Ox O2 Delivery O2 Flow Rate FiO2 05/01/17 15:38 97 65 05/01/17 08:00 98.9 103 17 05/01/17 04:00 117/67 (84) Intake and Output 05/01/17 05/01/17 05/02/17 08:00 16:00 00:00 Intake Total 1035 ml Output Total 900 ml Balance 135 ml Result Diagram: 05/01/17 0701 05/01/17 0701 Other Results Laboratory Tests Test 05/01/17 04:50 Blood Gas Puncture Site RT RADIAL Blood Gas Patient Temperature 98.6 Blood Gas HCO3 33 mmol/L (22-26) Blood Gas Base Excess 8.6 mmol/L (-2-2) Blood Gas Oxygen Saturation 94 % (90-100) Arterial Blood pH 7.43 (7.380-7.420) Arterial Blood Partial Pressure CO2 51 mmHg (38-42) Arterial Blood Partial Pressure O2 87 mmHg (61-120) Arterial Blood Oxygen Content 13.2 Vol % (12.0-20.0) Arterial Blood Carboxyhemoglobin 0.9 % (0-4) Arterial Blood Methemoglobin 1.1 % (0-2) Blood Gas Hemoglobin 9.9 G/DL (12.0-16.0) Oxygen Delivery Device VENTILATOR Blood Gas Ventilator Setting PRVC/AC Blood Gas Inspired Oxygen 60 % Imaging Last 24 hours Impressions Chest X-Ray 04/23/17 0600 Signed Impressions: Service Date/Time: Sunday, April 23, 2017 03:07 - CONCLUSION: Worsening right lung base opacity probably collapsed lung obscuring previously seen mass or consolidation and there is also bilateral infiltrates mainly on the left side not present previously may represent pulmonary edema. Alexis Valdivia MD Last Impressions Chest X-Ray 04/22/17 0629 Signed Impressions: Service Date/Time: Saturday, April 22, 2017 06:35 - CONCLUSION: Right lower lobe pneumonia. Alexis Valdivia MD Objective Remarks Gen: Critically ill-appearing male patient intubated and sedated HEENT/ Neuro: Sedated, orally intubated, Pallor present, no icterus, tongue/ mucosa moist Neck: No JVD Chest/Pulm: on mech ventilation scattered rhonchi, no wheezing or crackles CVS: S1-S2 regular, no murmur GI/abdomen: soft, nontender, bowel sounds sluggish Extremities: warm bilaterally, edema 1+ A/P Assessment and Plan 56-year-old male with: Acute hypoxic respiratory failure requiring mechanical ventilation Right lower lobe pneumonia Severe sepsis - improving. Diabetes mellitus COPD E. Coli bacteremia E. Coli community acquired pneumonia Acute kidney injury Persistent leukocytosis Plan: Neuro: propofol/fentanyl for goal RASS -2. Daily sedation vacation. Follow neuro status. We will add Ativan when necessary. Cardiovascular: saline lock ivf. Pulmonary: Continue mechanical ventilation, vent bundle, bronchodilators. CT chest with densely infiltrative RLL consolidation. no appreciable pleural effusion. daily SBTs.1/3 new infiltrate left lower lobe GI/liver: Tolerating tube feeds. High residuals resolved 3. Decreased narcotics , continue Reglan and laxatives. Renal/: strict intake output, monitor and replete electrolytes, follow BUN/ creatinine. ID: cultures growing e. coli. urine strep pneumo and legionella negative. d/c zosyn and azithromycin. started Rocephin 1gm iv q24h for total 7 day course of abx (anticipated stop date 04/30) ID consulted appreciate recommendations Blood cultures growing Escherichia coli Endocrine: Watch for hyperglycemia, SSI for glycemic control if needed Heme: Follow CBC and coags. Prophylaxis: PPI/SCDs/Lovenox Overall impression: improvements in mental status and hypoxemia. still with densely consolidated RLL. may take a few days of weaning mechanical ventilation before ready to extubate. highly complex with ongoing multiple medical issues. Dispo: my billing statement This patient remains critically ill with one or more organ systems which are or may become a threat to life. I have spent in excess of 30 minutes discontinuously in the care and management of this patient. This time is exclusive of procedures, and includes, but is not limited to, evaluation of the patient, review of the medical record, discussions with family, consultants, nursing staff, or respiratory therapy, and documentation in the medical record. D/W BOOK REPAIRER at bedside Physician Nhi Adler MD May 01, 2017 17:12
--- NOTE | 2017-05-01 18:21 | RADRPT ---
EXAM DATE/TIME: 05/01/2017 17:51 [facility] COMPARISON: CHEST SINGLE AP, April 29, 2017, 21:14. INDICATIONS : Respiratory failure. MEDICAL HISTORY : Hypertension. Chronic obstructive pulmonary disease. SURGICAL HISTORY : Appendectomy. ENCOUNTER: Subsequent ACUITY: 1 day PAIN SCORE: Non-responsive. LOCATION: Bilateral chest FINDINGS: Endotracheal tube, enteric tube and EKG leads are again noted. There is patchy consolidation bilatera lly and probable layering right effusion. Osseous structures are unchanged. CONCLUSION: No significant change has occurred. Charanjit Higgins MD on May 01, 2017 at 18:18 Board Certified Radiologist. This report was verified electronically.
[2017-05-01] MEDS: fentaNYL DRIP 250 ML IV PRN (19:07)
--- NOTE | 2017-05-01 19:59 | PD.ID.CON ---
History of Present Illness Service ID Consult Requested By Dr Leblanc Reason for Consult persistent leukocytosis Primary Care Physician No Primary Care Physician Diagnoses: History of Present Illness 56 yo male with presented 04/22 CT chest showed dense bibasilar consolidation worse on the right and pneumonia was suspected. He grew out E.coli in spuutum and 07/30 blood clx; repeat BC negative Antibiotics were d/c'd yday BAL from 04/24 no growth, repeat sputum from yday with GNB, ID still P He remains on vent, continues on CPAP trials greater than 8 hours, but later today experienced resp diastress and was put back on the rate with FiO2 of 70 % Not much secretions resported, clear Tolerating tube feeds. Low grade fever noted, BC repeat yday, no growth to date WBC now up to 12 K x 2 days, ID consult was requested Review of Systems ROS Limitations: Clinical Condition, Intubated, Altered Mental Status Past Family Social History Allergies: Coded Allergies: No Known Allergies (Verified Allergy, Unknown, 04/22/17) Past Medical History COPD Hypertension Diabetes bipolar, on medx Past Surgical History sp appey Active Ordered Medications Medications where reviewed in EMR Antibiotics Include: none Abx were stopped 1/ 9 am Family History CVA HTN cardiac arrest CA asthma Social History tobacco + 1/2 PPD - 1 PPD + ETOH , few times/wk no IVDU Physical Exam Vital Signs Vital Signs Date Time Temp Pulse Resp B/P (MAP) Pulse Ox O2 Delivery O2 Flow Rate FiO2 05/01/17 18:00 98 05/01/17 16:00 98.9 103 15 114/71 (85) 96 05/01/17 16:00 103 05/01/17 16:00 65 05/01/17 15:38 97 65 05/01/17 14:00 109 05/01/17 13:00 65 05/01/17 12:00 115 05/01/17 12:00 70 05/01/17 12:00 99.5 115 19 117/81 (93) 92 05/01/17 11:30 70 05/01/17 11:24 93 70 05/01/17 11:00 60 05/01/17 10:00 105 05/01/17 09:00 50 05/01/17 08:32 95 50 05/01/17 08:00 98.9 103 17 92 05/01/17 08:00 60 05/01/17 08:00 103 05/01/17 06:00 108 05/01/17 04:36 94 60 05/01/17 04:00 60 05/01/17 04:00 99.0 101 16 117/67 (84) 94 05/01/17 04:00 101 05/01/17 02:00 102 05/01/17 00:25 96 60 05/01/17 00:00 98.8 106 16 119/76 (90) 94 05/01/17 00:00 106 05/01/17 00:00 60 04/30/17 22:00 110 04/30/17 21:22 94 60 04/30/17 20:00 98.9 116 14 108/66 (80) 94 04/30/17 20:00 116 04/30/17 20:00 60 Physical Exam CONSTITUTIONAL/GENERAL: This is an adequately nourished patient, in no apparent distress. Int'd on mech vent'n TUBES/LINES/DRAINS: SKIN: No jaundice, rashes, or lesions. Skin temperature appropriate. Not diaphoretic. HEAD: Atraumatic. Normocephalic. EYES: Pupils equal and round and reactive. Extraocular motions intact. No scleral icterus. No injection or drainage. Fundi not examined. ENT: Hearing not tested. Nose without bleeding or purulent drainage. Throat without visible erythema, exudates, masses, or lesions. NECK: Trachea midline. Supple, nontender. CARDIOVASCULAR: Regular rate and rhythm without murmurs, gallops, or rubs. No JVD. Peripheral pulses symmetric. RESPIRATORY/CHEST: Symmetric, unlabored respirations. Clear to auscultation. Breath sounds equal bilaterally. No wheezes, rales, or rhonchi. GASTROINTESTINAL: Abdomen soft, non-tender, nondistended. No hepato-splenomegaly , or palpable masses. No guarding. Bowel sounds present. GENITOURINARY: Without palpable bladder distension. Henley catheter in place with clear yellow urine MUSCULOSKELETAL: Extremities without clubbing, cyanosis, or edema. No joint effusion noted. No mottling or clubbing. LYMPHATICS: No palpable cervical or supraclavicular adenopathy. NEUROLOGICAL: sedated, int'd, on mech vent'n PSYCHIATRIC: unable to assess Laboratory Laboratory Tests Test 05/01/17 04:50 1/4/18 07:01 Blood Gas Puncture Site RT RADIAL Blood Gas Patient Temperature 98.6 Blood Gas HCO3 33 Blood Gas Base Excess 8.6 Blood Gas Oxygen Saturation 94 Arterial Blood pH 7.43 Arterial Blood Partial Pressure CO2 51 Arterial Blood Partial Pressure O2 87 Arterial Blood Oxygen Content 13.2 Arterial Blood Carboxyhemoglobin 0.9 Arterial Blood Methemoglobin 1.1 Blood Gas Hemoglobin 9.9 Oxygen Delivery Device VENTILATOR Blood Gas Ventilator Setting PRVC/AC Blood Gas Inspired Oxygen 60 White Blood Count 12.9 Red Blood Count 4.47 Hemoglobin 10.7 Hematocrit 33.6 Mean Corpuscular Volume 75.1 Mean Corpuscular Hemoglobin 24.0 Mean Corpuscular Hemoglobin Concent 32.0 Red Cell Distribution Width 17.7 Platelet Count 437 Mean Platelet Volume 7.2 Blood Urea Nitrogen 26 Creatinine 0.84 Random Glucose 151 Calcium Level 8.8 Sodium Level 136 Potassium Level 4.5 Chloride Level 98 Carbon Dioxide Level 32.8 Anion Gap 5 Estimat Glomerular Filtration Rate 115 Date/Time Source Procedure Growth Status 04/30/17 20:26 Blood Peripheral Aerobic Blood Culture - Preliminary NO GROWTH IN 1 DAY Resulted 04/30/17 20:26 Blood Peripheral Anaerobic Blood Culture - Preliminary NO GROWTH IN 1 DAY Resulted 04/30/17 18:38 Sputum Endotracheal Gram Stain - Final Resulted 04/30/17 18:38 Sputum Culture - Preliminary Gram Negative Walker Resulted 04/22/17 08:40 Urine Catheterized Urine Legionella Antigen - Final PRESUMPTIVE NEGATIVE FOR LEGIONELLA P... Complete 04/22/17 08:40 Urine Catheterized Urine Streptococcus pneumoniae Antigen (M - Final PRESUMPTIVE NEGATIVE FOR STREPTOCOCCU... Complete Result Diagram: 05/01/17 0701 05/01/17 0701 Imaging Last Impressions Chest X-Ray 05/01/17 0000 Signed Impressions: Service Date/Time: April 17:51 - CONCLUSION: No significant change has occurred. Charanjit Higgins MD Chest CT 04/23/17 0000 Signed Impressions: Service Date/Time: Sunday, April 23, 2017 23:01 - CONCLUSION: Parenchymal infiltrates with dense bibasilar consolidation worse on the right and pneumonia is suspected. Alexis Valdivia MD Assessment and Plan Assessment and Plan PNA, E.coli, bacteremic Acute VDRF Worsening resp status New GNB PNA? Leukocytosis - will restart abx, Zosyn - fu ID/S on the GNB in sputum - fu CXR in am Discussed Condition With Fabiana Lopez MD May 01, 2017 19:59
[2017-05-01] MEDS: BENZTROPINE MESYLATE 1 MG TAB PO SCH (21:14)
[2017-05-01] MEDS: QUEtiapine FUMARATE 200 MG TAB PO SCH (21:14)
[2017-05-01] MEDS: traZODone HCL 50 MG TAB PO SCH (21:14)
[2017-05-01] MEDS: PIPERACIL-TAZO 4.5 GM PREMIX 100 ML IV SCH (21:16)
[2017-05-02] VITALS (22 sets, daily range): BP systolic 108–139; BP diastolic 63–88; PULSE 68–111; RESP 17–22; TEMP 98.3–100; O2SAT 93–100
[2017-05-02] MEDS: INSULIN ASPART SUPPLEMENTAL SCALE SQ SCH ×4 (00:11→18:00)
[2017-05-02] MEDS: RESP: ALBUTEROL 2.5 MG/IPRATROPIUM 0.5 MG NEB (PRN) INH (02:42)
[2017-05-02] MEDS: CHLORHEXIDINE GLUCONATE 2 % 1 PACK (2 CLOTHS) TOP SCH (03:22)
[2017-05-02] MEDS: PIPERACIL-TAZO 4.5 GM PREMIX 100 ML IV SCH ×3 (03:22→15:04)
[2017-05-02] MEDS: PROPOFOL 1000 MG/100 ML INJ 100 ML IV PRN ×4 (04:24→22:22)
[2017-05-02 05:27] LABS: HEMATOCRIT 30.8 % (39.0-51.0); MEAN CELL VOLUME 75.6 FL (80.0-100.0); MEAN CORPUSCULAR HEMOGLOBIN 24.6 PG (27.0-34.0); MEAN CORPUSCULAR HGB CONC 32.5 % (32.0-36.0); MEAN PLATELET VOLUME 7.9 FL (7.0-11.0); PLATELET COUNT 344 TH/MM3 (150-450); RED BLOOD COUNT 4.08 MIL/MM3 (4.50-5.90); RED CELL DISTRIBUTION WIDTH 17.7 % (11.6-17.2)
[2017-05-02 05:35] LABS: BICARBONATE 32.5 MEQ/L (21.0-32.0); CALCIUM 8.6 MG/DL (8.5-10.1); CREATININE 0.88 MG/DL (0.60-1.30)
[2017-05-02] MEDS: METOCLOPRAMIDE HCL 10 MG/2 ML VIAL IV PUSH SCH ×3 (06:00→21:28)
--- NOTE | 2017-05-02 06:13 | RADRPT ---
EXAM DATE/TIME: 05/02/2017 05:23 [facility] COMPARISON: CHEST SINGLE AP, May 01, 2017, 17:51. INDICATIONS : Evaluate for pneumonia MEDICAL HISTORY : Hypertension. Chronic obstructive pulmonary disease. SURGICAL HISTORY : Appendectomy. ENCOUNTER: Subsequent ACUITY: 2 weeks PAIN SCORE: Non-responsive. LOCATION: Bilateral chest FINDINGS: Single AP view of the chest. Endotracheal tube and nasogastric tube remain in place. Low lung volumes . Increased diffuse right-sided hazy opacity that may represent layering pleural effusion or parenchy mal opacity. CONCLUSION: Increased right sided hazy opacity indicating small pleural effusion or parenchymal opacity. Sagar Gerard MD on May 02, 2017 at 6:11 Board Certified Radiologist. This report was verified electronically.
[2017-05-02] MEDS: PANTOPRAZOLE SOD 40 MG DELAYED RELEASE TAB PO SCH (09:00)
[2017-05-02] MEDS: HALOPERIDOL 2 MG TAB PO SCH (09:28)
[2017-05-02] MEDS: GABAPENTIN 300 MG CAP PO SCH ×3 (09:28→17:34)
[2017-05-02] MEDS: ENOXAPARIN SODIUM 40 MG/0.4 ML SYRINGE SQ SCH (09:28)
[2017-05-02] MEDS: SODIUM CHLORIDE 0.9% FLUSH 10 ML FLUSH IV FLUSH SCH ×2 (09:28→21:29)
[2017-05-02] MEDS: buPROPion HCL 150 MG EXTENDED RELEASE TAB PO SCH (09:28)
[2017-05-02] MEDS: CILOSTAZOL 100 MG TAB PO SCH (09:28)
[2017-05-02] MEDS: DOCUSATE SODIUM 50 MG/SENNA 8.6 MG TAB PO SCH ×2 (09:28→21:28)
[2017-05-02] MEDS: ONDANSETRON HCL 4 MG/2 ML VIAL IV PUSH PRN ×2 (10:27→17:34)
[2017-05-02] MEDS: fentaNYL DRIP 250 ML IV PRN (15:03)
[2017-05-02] MEDS: SENNOSIDES 8.6 MG TAB PO PRN (17:34)
--- NOTE | 2017-05-02 18:23 | HHI.CCPN ---
Subjective Remarks/Hospital Course 04/22: 56-year-old man, 3-4 days cough cold symptoms, worsening trouble breathing, fevers and chills. History of COPD, diabetes, hypertension. Ran out of his nebulizers last night. Significant worsening shortness of breath, cough, fever or myalgias. No nausea or vomiting. History limited due to patient's marked respiratory distress. Patient initially placed on BiPAP however develop worsening respiratory distress and hence was emergently intubated and placed on mechanical ventilation by ER physician. His chest x- ray in the ER revealed right lower lobe pneumonia and after obtaining blood cultures he was initiated on empiric antibiotic coverage. Accepted for admission by critical care medicine service. I evaluated the patient following his arrival to the ICU. At that time he was sedated, orally intubated on mechanical ventilation. History obtained by reviewing records and discussion with patient's . 04/23: Remains sedated, orally intubated on mechanical ventilation. Blood cultures growing Escherichia coli. 04/24: remains intubated. blood and sputum growing e. coli. still no family reachable for bronch. 04/25: much more awake and alert. sputum and blood growing e. coli. Abx narrowed to Rocephin IV, total of 7 day course. hypoxia improving. 04/26: Sedated, orally intubated on mechanical ventilation. Tolerating tube feeds. 04/27: Remains sedated, orally intubated on mechanical ventilation. Having high residuals with tube feedings. Significant pulmonary secretions noted. 04/28: Sedated, orally intubated on mechanical ventilation. Failed C Pap trial. 04/29: Patient failed CPAP trials, patient noted to have not have a bowel movement for greater than 6 days, fleets enema ordered. X-ray revealed new infiltrate of left lung base. 04/30: Patient had 4 bowel movements status post fleets enema in the last 12 hours. The patient had an episode of increasing FiO2 requirements during the night. Patient still noted to have significant pulmonary secretions. Tube feed residuals minimal. 05/01: Patient continues on CPAP trials greater than 8 hours. Tolerating tube feeds. 05/02: Afebrile . Patient continues on CPAP trials . Escherichia coli in sputum, ID consulted, Zosyn reinitiated. Objective Vital Signs Date Time Temp Pulse Resp B/P (MAP) Pulse Ox O2 Delivery O2 Flow Rate FiO2 05/02/17 18:00 110 05/02/17 16:00 98.7 21 139/82 (101) 98 05/02/17 15:59 50 Intake and Output 05/02/17 05/02/17 05/03/17 08:00 16:00 00:00 Intake Total 1188 ml 141.5 ml Output Total 1200 ml Balance -12 ml 141.5 ml Result Diagram: 05/02/17 0449 05/02/17 0449 Imaging Last 24 hours Impressions Chest X-Ray 04/23/17 0600 Signed Impressions: Service Date/Time: Sunday, April 23, 2017 03:07 - CONCLUSION: Worsening right lung base opacity probably collapsed lung obscuring previously seen mass or consolidation and there is also bilateral infiltrates mainly on the left side not present previously may represent pulmonary edema. Alexis Valdivia MD Last Impressions Chest X-Ray 04/22/17 0629 Signed Impressions: Service Date/Time: Saturday, April 22, 2017 06:35 - CONCLUSION: Right lower lobe pneumonia. Alexis Valdivia MD Objective Remarks Gen: Critically ill-appearing male patient intubated currently on CPAP trials HEENT/ Neuro: Sedated, orally intubated, Pallor present, no icterus, tongue/ mucosa moist Neck: No JVD Chest/Pulm: on mech ventilation scattered rhonchi, no wheezing or crackles CVS: S1-S2 regular, no murmur GI/abdomen: soft, nontender, bowel sounds sluggish Extremities: warm bilaterally, edema 1+ A/P Assessment and Plan 56-year-old male with: Acute hypoxic respiratory failure requiring mechanical ventilation Right lower lobe pneumonia Severe sepsis - improving. Diabetes mellitus COPD E. Coli bacteremia E. Coli community acquired pneumonia Acute kidney injury Persistent leukocytosis Plan: Neuro: propofol/fentanyl for goal RASS -2. Daily sedation vacation. Follow neuro status. Ativan when necessary. Cardiovascular: saline lock ivf. Pulmonary: Continue mechanical ventilation, vent bundle, bronchodilators. CT chest with densely infiltrative RLL consolidation. no appreciable pleural effusion. daily SBTs.1/3 new infiltrate left lower lobe . Plan to continue CPAP trials as long as patient is clinically stable . GI/liver: Tolerating tube feeds. High residuals resolved 1/3. Decreased narcotics , continue Reglan and laxatives. Renal/: strict intake output, monitor and replete electrolytes, follow BUN/ creatinine. ID: cultures growing e. coli. urine strep pneumo and legionella negative. d/c zosyn and azithromycin. started Rocephin 1gm iv q24h for total 7 day course of abx (stop date 04/30) ID consulted Zosyn restarted 05/01/17 Blood cultures growing Escherichia coli Endocrine: Watch for hyperglycemia, SSI for glycemic control if needed Heme: Follow CBC and coags. Prophylaxis: PPI/SCDs/Lovenox Overall impression: improvements in mental status and hypoxemia. still with densely consolidated RLL. may take a few days of weaning mechanical ventilation before ready to extubate. highly complex with ongoing multiple medical issues. Dispo: my billing statement This patient remains critically ill with one or more organ systems which are or may become a threat to life. I have spent in excess of 30 minutes discontinuously in the care and management of this patient. This time is exclusive of procedures, and includes, but is not limited to, evaluation of the patient, review of the medical record, discussions with family, consultants, nursing staff, or respiratory therapy, and documentation in the medical record. D/W TAIL TRIMMER at bedside Physician Nhi Adler MD May 02, 2017 18:23
--- NOTE | 2017-05-02 18:59 | HHI.IDPN ---
Subjective Subjective Remarks repeat sputum E.coli isolate is ? ESBL fever yday, not today remains intubated, on 50% Antibiotics zosyn Allergies: Coded Allergies: No Known Allergies (Verified Allergy, Unknown, 04/22/17) Objective . Vital Signs Date Time Temp Pulse Resp B/P (MAP) Pulse Ox O2 Delivery O2 Flow Rate FiO2 05/02/17 18:00 110 05/02/17 16:00 98.7 106 21 139/82 (101) 98 05/02/17 16:00 111 05/02/17 15:59 100 50 05/02/17 14:00 106 05/02/17 12:00 98.3 106 21 126/76 (93) 94 05/02/17 12:00 106 05/02/17 10:36 96 50 05/02/17 10:35 55 05/02/17 10:30 50 05/02/17 10:00 93 05/02/17 08:05 98 55 05/02/17 08:00 90 05/02/17 08:00 98.8 90 18 108/68 (81) 98 05/02/17 06:00 68 05/02/17 04:04 95 60 05/02/17 04:00 60 05/02/17 04:00 98.7 91 22 108/68 (81) 93 05/02/17 04:00 78 05/02/17 02:00 80 05/02/17 00:58 96 60 05/02/17 00:00 99.0 90 17 112/63 (79) 96 05/02/17 00:00 60 05/02/17 00:00 94 05/01/17 22:00 106 05/01/17 20:00 87 05/01/17 20:00 60 05/01/17 20:00 98.7 97 16 107/61 (76) 96 05/01/17 19:54 96 60 05/02/17 05/02/17 05/03/17 15:00 23:00 07:00 Intake Total 130.9 ml 10.6 ml Balance 130.9 ml 10.6 ml Intake IV Total 130.9 ml 10.6 ml . Laboratory Tests Test 05/01/17 07:01 05/02/17 04:49 White Blood Count 12.9 TH/MM3 14.0 TH/MM3 Red Blood Count 4.47 MIL/MM3 4.08 MIL/MM3 Hemoglobin 10.7 GM/DL 10.0 GM/DL Hematocrit 33.6 % 30.8 % Mean Corpuscular Volume 75.1 FL 75.6 FL Mean Corpuscular Hemoglobin 24.0 PG 24.6 PG Mean Corpuscular Hemoglobin Concent 32.0 % 32.5 % Red Cell Distribution Width 17.7 % 17.7 % Platelet Count 437 TH/MM3 344 TH/MM3 Mean Platelet Volume 7.2 FL 7.9 FL Laboratory Tests Test 05/01/17 07:01 05/02/17 04:49 Blood Urea Nitrogen 26 MG/DL 23 MG/DL Creatinine 0.84 MG/DL 0.88 MG/DL Random Glucose 151 MG/DL 91 MG/DL Calcium Level 8.8 MG/DL 8.6 MG/DL Sodium Level 136 MEQ/L 138 MEQ/L Potassium Level 4.5 MEQ/L 5.0 MEQ/L Chloride Level 98 MEQ/L 99 MEQ/L Carbon Dioxide Level 32.8 MEQ/L 32.5 MEQ/L Anion Gap 5 MEQ/L 7 MEQ/L Estimat Glomerular Filtration Rate 115 ML/MIN 109 ML/MIN Microbiology Date/Time Source Procedure Growth Status 04/30/17 20:26 Blood Peripheral Aerobic Blood Culture - Preliminary NO GROWTH IN 2 DAYS Resulted 04/30/17 20:26 Blood Peripheral Anaerobic Blood Culture - Preliminary NO GROWTH IN 2 DAYS Resulted 04/30/17 20:14 Blood Peripheral Aerobic Blood Culture - Preliminary NO GROWTH IN 2 DAYS Resulted 04/30/17 20:14 Blood Peripheral Anaerobic Blood Culture - Preliminary NO GROWTH IN 2 DAYS Resulted 04/30/17 18:38 Sputum Endotracheal Gram Stain - Final Resulted 04/30/17 18:38 Sputum Culture - Preliminary Escherichia Coli Resulted Imaging Last Impressions Chest X-Ray 05/02/17 0600 Signed Impressions: Service Date/Time: Tuesday, May 02, 2017 05:23 - CONCLUSION: Increased right sided hazy opacity indicating small pleural effusion or parenchymal opacity. Sagar Gerard MD Chest CT 04/23/17 0000 Signed Impressions: Service Date/Time: Sunday, April 23, 2017 23:01 - CONCLUSION: Parenchymal infiltrates with dense bibasilar consolidation worse on the right and pneumonia is suspected. Alexis Valdivia MD Physical Exam CONSTITUTIONAL/GENERAL: This is an adequately nourished patient, in no apparent distress. Int'd on mech vent'n TUBES/LINES/DRAINS: SKIN: No jaundice, rashes, or lesions. Skin temperature appropriate. Not diaphoretic. CARDIOVASCULAR: Regular rate and rhythm without murmurs, gallops, or rubs. No JVD. Peripheral pulses symmetric. RESPIRATORY/CHEST: Symmetric, unlabored respirations. Clear to auscultation. Breath sounds equal bilaterally. No wheezes, rales, or rhonchi. GASTROINTESTINAL: Abdomen soft, non-tender, nondistended. No hepato-splenomegaly , or palpable masses. No guarding. Bowel sounds present. GENITOURINARY: Without palpable bladder distension. Henley catheter in place with clear yellow urine MUSCULOSKELETAL: Extremities without clubbing, cyanosis, or edema. No joint effusion noted. No mottling or clubbing. NEUROLOGICAL: sedated, int'd, on mech vent'n PSYCHIATRIC: unable to assess Assessment & Plan Remarks PNA, E.coli, bacteremic Acute VDRF Worsening resp status - better today New E.coli PNA, now with ? ESBL Leukocytosis: worse today - change Zosyn to Ertapenem - fu final S on the E.coli in sputum Fabiana Ríos MD May 02, 2017 18:59
[2017-05-02] MEDS ORDERED: ASP: Documented ESBL, MDR A baumannii or P. aeruginosa PRN (19:00)
[2017-05-02] MEDS ORDERED: ERTAPENEM INJ 1,000 MG in SODIUM CHLORIDE 0.9% INJ 100 ML IV SCH (19:00)
[2017-05-02] MEDS ORDERED: MISCELLANEOUS PHARMACY INFORMATION XX PRN (19:00)
[2017-05-02] MEDS: traZODone HCL 50 MG TAB PO SCH (21:28)
[2017-05-02] MEDS: BENZTROPINE MESYLATE 1 MG TAB PO SCH (21:29)
[2017-05-02] MEDS: QUEtiapine FUMARATE 200 MG TAB PO SCH (21:29)
[2017-05-03] VITALS (22 sets, daily range): BP systolic 126–155; BP diastolic 72–89; PULSE 91–110; RESP 20–33; TEMP 99–99.6; O2SAT 92–98
[2017-05-03] MEDS: CHLORHEXIDINE GLUCONATE 2 % 1 PACK (2 CLOTHS) TOP SCH (01:33)
--- NOTE | 2017-05-03 04:49 | RADRPT ---
EXAM DATE/TIME: 05/03/2017 03:25 [facility] COMPARISON: CHEST SINGLE AP, May 02, 2017, 5:23. INDICATIONS : Shortness of breath, possible pulmonary disease. MEDICAL HISTORY : Hypertension. Chronic obstructive pulmonary disease. SURGICAL HISTORY : Appendectomy. ENCOUNTER: Subsequent ACUITY: 2 weeks PAIN SCORE: Non-responsive. LOCATION: Bilateral chest FINDINGS: Single AP view of the chest. Endotracheal tube, nasogastric tube remain in place. Persistent bilatera l pulmonary parenchymal opacity right greater than left. Small right pleural effusion unchanged. No e vidence of pneumothorax. No significant interval change. CONCLUSION: No significant change. Right greater than left lower lung zone predominant pulmonary parenchymal opac ity and small right pleural effusion again seen. Sagar Gerard MD on May 03, 2017 at 4:43 Board Certified Radiologist. This report was verified electronically.
[2017-05-03] MEDS: PROPOFOL 1000 MG/100 ML INJ 100 ML IV PRN ×4 (04:52→23:56)
[2017-05-03] MEDS: METOCLOPRAMIDE HCL 10 MG/2 ML VIAL IV PUSH SCH ×3 (04:52→20:51)
[2017-05-03] MEDS: INSULIN ASPART SUPPLEMENTAL SCALE SQ SCH ×5 (06:00→23:55)
[2017-05-03 07:23] LABS: BASOPHIL # 0.1 TH/MM3 (0-0.2); BASOPHIL % 0.4 % (0.0-2.0); EOSINOPHIL # 0.2 TH/MM3 (0-0.4); EOSINOPHIL % 1.3 % (0.0-4.0); HEMATOCRIT 27.9 % (39.0-51.0); HEMOGLOBIN 9.2 GM/DL (13.0-17.0); LYMPH % 17.8 % (9.0-44.0); LYMPHOCYTE # 2.2 TH/MM3 (1.0-4.8); MEAN CELL VOLUME 74.3 FL (80.0-100.0); MEAN CORPUSCULAR HEMOGLOBIN 24.3 PG (27.0-34.0); MEAN CORPUSCULAR HGB CONC 32.7 % (32.0-36.0); MEAN PLATELET VOLUME 7.7 FL (7.0-11.0); MONOCYTE # 0.9 TH/MM3 (0-0.9); NEUT % 73.5 % (16.0-70.0); PLATELET COUNT 497 TH/MM3 (150-450); RED BLOOD COUNT 3.76 MIL/MM3 (4.50-5.90); RED CELL DISTRIBUTION WIDTH 17.4 % (11.6-17.2); WHITE BLOOD COUNT 12.3 TH/MM3 (4.0-11.0)
[2017-05-03] MEDS: buPROPion HCL 150 MG EXTENDED RELEASE TAB PO SCH (09:00)
[2017-05-03] MEDS: DOCUSATE SODIUM 50 MG/SENNA 8.6 MG TAB PO SCH ×2 (09:10→20:50)
[2017-05-03] MEDS: GABAPENTIN 300 MG CAP PO SCH ×3 (09:10→17:13)
[2017-05-03] MEDS: HALOPERIDOL 2 MG TAB PO SCH (09:10)
[2017-05-03] MEDS: PANTOPRAZOLE SOD 40 MG DELAYED RELEASE TAB PO SCH (09:11)
[2017-05-03] MEDS: ENOXAPARIN SODIUM 40 MG/0.4 ML SYRINGE SQ SCH (09:11)
[2017-05-03] MEDS: SODIUM CHLORIDE 0.9% FLUSH 10 ML FLUSH IV FLUSH SCH ×2 (09:12→20:50)
[2017-05-03] MEDS: CILOSTAZOL 100 MG TAB PO SCH (09:17)
[2017-05-03] MEDS: PIPERACIL-TAZO 3.375 GM PREMIX 50 ML IV SCH ×3 (11:15→23:55)
--- NOTE | 2017-05-03 17:13 | HHI.CCPN ---
Subjective Remarks/Hospital Course 04/22: 56-year-old man, 3-4 days cough cold symptoms, worsening trouble breathing, fevers and chills. History of COPD, diabetes, hypertension. Ran out of his nebulizers last night. Significant worsening shortness of breath, cough, fever or myalgias. No nausea or vomiting. History limited due to patient's marked respiratory distress. Patient initially placed on BiPAP however develop worsening respiratory distress and hence was emergently intubated and placed on mechanical ventilation by ER physician. His chest x- ray in the ER revealed right lower lobe pneumonia and after obtaining blood cultures he was initiated on empiric antibiotic coverage. Accepted for admission by critical care medicine service. I evaluated the patient following his arrival to the ICU. At that time he was sedated, orally intubated on mechanical ventilation. History obtained by reviewing records and discussion with patient's . 04/23: Remains sedated, orally intubated on mechanical ventilation. Blood cultures growing Escherichia coli. 04/24: remains intubated. blood and sputum growing e. coli. still no family reachable for bronch. 04/25: much more awake and alert. sputum and blood growing e. coli. Abx narrowed to Rocephin IV, total of 7 day course. hypoxia improving. 04/26: Sedated, orally intubated on mechanical ventilation. Tolerating tube feeds. 04/27: Remains sedated, orally intubated on mechanical ventilation. Having high residuals with tube feedings. Significant pulmonary secretions noted. 04/28: Sedated, orally intubated on mechanical ventilation. Failed C Pap trial. 04/29: Patient failed CPAP trials, patient noted to have not have a bowel movement for greater than 6 days, fleets enema ordered. X-ray revealed new infiltrate of left lung base. 04/30: Patient had 4 bowel movements status post fleets enema in the last 12 hours. The patient had an episode of increasing FiO2 requirements during the night. Patient still noted to have significant pulmonary secretions. Tube feed residuals minimal. 05/01: Patient continues on CPAP trials greater than 8 hours. Tolerating tube feeds. 05/02: Afebrile . Patient continues on CPAP trials . Escherichia coli in sputum, ID consulted, Zosyn reinitiated. 05/03: Patient tolerated CPAP throughout the night, however failed SBT parameters this a.m. unable to produce a NIF. Will continue CPAP throughout the night if patient continues to be clinically stable with plan on repeat SBT parameters in a.m. for tentative extubation. Objective Vital Signs Date Time Temp Pulse Resp B/P (MAP) Pulse Ox O2 Delivery O2 Flow Rate FiO2 05/03/17 16:00 99.1 91 33 126/78 (94) 96 05/03/17 16:00 45 Intake and Output 05/03/17 05/03/17 05/04/17 08:00 16:00 00:00 Intake Total 752 ml 150 ml Output Total 1100 ml Balance -348 ml 150 ml Result Diagram: 05/03/17 0635 05/02/17 0449 Other Results Microbiology Date/Time Source Procedure Growth Status 04/30/17 18:38 Sputum Endotracheal Gram Stain - Final Complete 04/30/17 18:38 Sputum Culture - Final Escherichia Coli Complete Imaging Last 24 hours Impressions Chest X-Ray 04/23/17 0600 Signed Impressions: Service Date/Time: Sunday, April 23, 2017 03:07 - CONCLUSION: Worsening right lung base opacity probably collapsed lung obscuring previously seen mass or consolidation and there is also bilateral infiltrates mainly on the left side not present previously may represent pulmonary edema. Alexis Valdivia MD Last Impressions Chest X-Ray 04/22/17 0629 Signed Impressions: Service Date/Time: Saturday, April 22, 2017 06:35 - CONCLUSION: Right lower lobe pneumonia. Alexis Valdivia MD Objective Remarks Gen: Well-developed well-nourished male patient intubated currently on CPAP trials HEENT/ Neuro: Sedated, orally intubated, Pallor present, no icterus, tongue/ mucosa moist Neck: No JVD Chest/Pulm: on mech ventilation scattered rhonchi, no wheezing or crackles. B/L chest excursion CVS: S1-S2 regular, no murmur. Telemetry sinus rhythm GI/abdomen: soft, nontender, bowel sounds sluggish Extremities: warm bilaterally, edema 1+ A/P Assessment and Plan 56-year-old male with: Acute hypoxic respiratory failure requiring mechanical ventilation Right lower lobe pneumonia Severe sepsis - improving. Diabetes mellitus COPD E. Coli bacteremia E. Coli community acquired pneumonia Acute kidney injury Persistent leukocytosis Plan: Neuro: propofol/fentanyl for goal RASS -2. Daily sedation vacation. Follow neuro status. Ativan when necessary. Cardiovascular: saline lock ivf. Pulmonary: Continue mechanical ventilation, vent bundle, bronchodilators. CT chest with densely infiltrative RLL consolidation. no appreciable pleural effusion. daily SBTs.1/3 new infiltrate left lower lobe . Plan to continue CPAP trials as long as patient is clinically stable . GI/liver: Tolerating tube feeds. High residuals resolved /3. Decreased narcotics , continue Reglan and laxatives. Renal/: strict intake output, monitor and replete electrolytes, follow BUN/ creatinine. ID: cultures growing e. coli. urine strep pneumo and legionella negative. d/c zosyn and azithromycin. started Rocephin 1gm iv q24h for total 7 day course of abx (stop date 04/30) ID consulted Zosyn restarted 05/01/17 Blood cultures growing Escherichia coli Endocrine: Watch for hyperglycemia, SSI for glycemic control if needed Heme: Follow CBC and coags. Prophylaxis: PPI/SCDs/Lovenox Overall impression: Noted improvement in mental status and hypoxemia. still with densely consolidated RLL. Into CPAP trials plan with SBT parameters to be obtained for possible extubation in a.m. Dispo: Level III followup D/W TOY ASSEMBLY SUPERVISOR at bedside ([place]) Physician Nhi Adler MD May 03, 2017 17:13
[2017-05-03] MEDS: fentaNYL DRIP 250 ML IV PRN (19:57)
[2017-05-03] MEDS: traZODone HCL 50 MG TAB PO SCH (20:50)
[2017-05-03] MEDS: QUEtiapine FUMARATE 200 MG TAB PO SCH (20:51)
[2017-05-03] MEDS: BENZTROPINE MESYLATE 1 MG TAB PO SCH (20:51)
[2017-05-04] VITALS (17 sets, daily range): BP systolic 125–158; BP diastolic 80–94; PULSE 67–104; RESP 33–52; TEMP 97.9–99.4; O2SAT 92–98
[2017-05-04] MEDS: CHLORHEXIDINE GLUCONATE 2 % 1 PACK (2 CLOTHS) TOP SCH ×2 (04:00→23:49)
[2017-05-04] MEDS: PIPERACIL-TAZO 3.375 GM PREMIX 50 ML IV SCH ×4 (04:01→21:29)
--- NOTE | 2017-05-04 05:01 | RADRPT ---
EXAM DATE/TIME: 05/04/2017 04:00 [facility] COMPARISON: CHEST SINGLE AP, May 03, 2017, 3:25. INDICATIONS : Shortness of breath, possible pulmonary disease. MEDICAL HISTORY : Hypertension. Chronic obstructive pulmonary disease. SURGICAL HISTORY : Appendectomy. ENCOUNTER: Subsequent ACUITY: 2 weeks PAIN SCORE: Non-responsive. LOCATION: Bilateral chest FINDINGS: Single AP view of the chest. Endotracheal tube and nasogastric tube remain in place. Persistent bilat eral pulmonary opacity right greater than left unchanged. Likely small bilateral pleural effusions. N o evidence of pneumothorax. CONCLUSION: No significant change with persistent bilateral right greater than left pulmonary parenchymal consoli dation and likely small bilateral pleural effusions. Sagar Gerard MD on May 04, 2017 at 4:59 Board Certified Radiologist. This report was verified electronically.
[2017-05-04] MEDS: INSULIN ASPART SUPPLEMENTAL SCALE SQ SCH ×4 (05:18→23:48)
[2017-05-04] MEDS: METOCLOPRAMIDE HCL 10 MG/2 ML VIAL IV PUSH SCH ×3 (05:19→21:29)
[2017-05-04] MEDS: RESP: ALBUTEROL 2.5 MG/IPRATROPIUM 0.5 MG NEB (PRN) INH ×2 (05:23→10:20)
[2017-05-04 08:01] LABS: BICARBONATE 27.5 MEQ/L (21.0-32.0); CALCIUM 8.7 MG/DL (8.5-10.1); CREATININE 0.73 MG/DL (0.60-1.30)
[2017-05-04 08:02] LABS: HEMATOCRIT 32.1 % (39.0-51.0); HEMOGLOBIN 10.4 GM/DL (13.0-17.0); MEAN CORPUSCULAR HEMOGLOBIN 24.3 PG (27.0-34.0); MEAN CORPUSCULAR HGB CONC 32.4 % (32.0-36.0); PLATELET COUNT 482 TH/MM3 (150-450); RED BLOOD COUNT 4.27 MIL/MM3 (4.50-5.90); RED CELL DISTRIBUTION WIDTH 17.5 % (11.6-17.2)
[2017-05-04] MEDS: DOCUSATE SODIUM 50 MG/SENNA 8.6 MG TAB PO SCH ×2 (08:56→21:29)
[2017-05-04] MEDS: HALOPERIDOL 2 MG TAB PO SCH (08:56)
[2017-05-04] MEDS: PANTOPRAZOLE SOD 40 MG DELAYED RELEASE TAB PO SCH (08:56)
[2017-05-04] MEDS: CILOSTAZOL 100 MG TAB PO SCH (08:56)
[2017-05-04] MEDS: buPROPion HCL 150 MG EXTENDED RELEASE TAB PO SCH (08:56)
[2017-05-04] MEDS: GABAPENTIN 300 MG CAP PO SCH ×3 (08:56→17:58)
[2017-05-04] MEDS: SODIUM CHLORIDE 0.9% FLUSH 10 ML FLUSH IV FLUSH SCH ×2 (08:57→21:27)
[2017-05-04] MEDS: ENOXAPARIN SODIUM 40 MG/0.4 ML SYRINGE SQ SCH (08:57)
[2017-05-04] MEDS: PROPOFOL 1000 MG/100 ML INJ 100 ML IV PRN (09:01)
--- NOTE | 2017-05-04 19:53 | HHI.CCPN ---
Subjective Remarks/Hospital Course 04/22: 56-year-old man, 3-4 days cough cold symptoms, worsening trouble breathing, fevers and chills. History of COPD, diabetes, hypertension. Ran out of his nebulizers last night. Significant worsening shortness of breath, cough, fever or myalgias. No nausea or vomiting. History limited due to patient's marked respiratory distress. Patient initially placed on BiPAP however develop worsening respiratory distress and hence was emergently intubated and placed on mechanical ventilation by ER physician. His chest x- ray in the ER revealed right lower lobe pneumonia and after obtaining blood cultures he was initiated on empiric antibiotic coverage. Accepted for admission by critical care medicine service. I evaluated the patient following his arrival to the ICU. At that time he was sedated, orally intubated on mechanical ventilation. History obtained by reviewing records and discussion with patient's . 04/23: Remains sedated, orally intubated on mechanical ventilation. Blood cultures growing Escherichia coli. 04/24: remains intubated. blood and sputum growing e. coli. still no family reachable for bronch. 04/25: much more awake and alert. sputum and blood growing e. coli. Abx narrowed to Rocephin IV, total of 7 day course. hypoxia improving. 04/26: Sedated, orally intubated on mechanical ventilation. Tolerating tube feeds. 04/27: Remains sedated, orally intubated on mechanical ventilation. Having high residuals with tube feedings. Significant pulmonary secretions noted. 04/28: Sedated, orally intubated on mechanical ventilation. Failed C Pap trial. 04/29: Patient failed CPAP trials, patient noted to have not have a bowel movement for greater than 6 days, fleets enema ordered. X-ray revealed new infiltrate of left lung base. 04/30: Patient had 4 bowel movements status post fleets enema in the last 12 hours. The patient had an episode of increasing FiO2 requirements during the night. Patient still noted to have significant pulmonary secretions. Tube feed residuals minimal. 05/01: Patient continues on CPAP trials greater than 8 hours. Tolerating tube feeds. 05/02: Afebrile . Patient continues on CPAP trials . Escherichia coli in sputum, ID consulted, Zosyn reinitiated. 05/03: Patient tolerated CPAP throughout the night, however failed SBT parameters this a.m. unable to produce a NIF. Will continue CPAP throughout the night if patient continues to be clinically stable with plan on repeat SBT parameters in a.m. for tentative extubation. 05/04: The patient was extubated this morning notable severe weakness. PT and OT evaluation ordered. Noted to have bilateral small pleural effusions Lasix 40 mg IV 1 dose given this evening. Objective Vital Signs Date Time Temp Pulse Resp B/P (MAP) Pulse Ox O2 Delivery O2 Flow Rate FiO2 05/04/17 18:00 102 05/04/17 16:00 97.9 33 142/94 (110) 92 05/04/17 10:03 Nasal Cannula 4 36 Intake and Output 05/04/17 05/04/17 05/05/17 08:00 16:00 00:00 Intake Total 557 ml 50 ml 80 ml Output Total 870 ml 1000 ml Balance -313 ml 50 ml -920 ml Result Diagram: 05/04/17 0725 05/04/17 0725 Imaging Last 24 hours Impressions Chest X-Ray 04/23/17 0600 Signed Impressions: Service Date/Time: Sunday, April 23, 2017 03:07 - CONCLUSION: Worsening right lung base opacity probably collapsed lung obscuring previously seen mass or consolidation and there is also bilateral infiltrates mainly on the left side not present previously may represent pulmonary edema. Alexis Valdivia MD Last Impressions Chest X-Ray 04/22/17 0629 Signed Impressions: Service Date/Time: Saturday, April 22, 2017 06:35 - CONCLUSION: Right lower lobe pneumonia. Alexis Valdivia MD Objective Remarks Gen: Well-developed well-nourished male patient in no apparent distress HEENT/ Neuro: Sedated, orally intubated, Pallor present, no icterus, tongue/ mucosa moist Neck: No JVD Chest/Pulm: on mech ventilation scattered rhonchi, no wheezing or crackles. B/L chest excursion CVS: S1-S2 regular, no murmur. Telemetry sinus rhythm GI/abdomen: soft, nontender, bowel sounds sluggish Extremities: warm bilaterally, edema 1+ A/P Assessment and Plan 56-year-old male with: Acute hypoxic respiratory failure requiring mechanical ventilation-resolved Right lower lobe pneumonia Severe sepsis - improving. Diabetes mellitus COPD E. Coli bacteremia E. Coli community acquired pneumonia Acute kidney injury Persistent leukocytosis Plan: Neuro: Serquel and Trazodone placed on hold Cardiovascular: saline lock ivf. Pulmonary: Extubated 05/04. Continue bronchodilators. CT chest with densely infiltrative RLL consolidation. no appreciable pleural effusion. daily SBTs.1/3 new infiltrate left lower lobe . Plan to continue CPAP trials as long as patient is clinically stable . GI/liver: Tolerating tube feeds. High residuals resolved 3. Decreased narcotics , continue Reglan and laxatives. Renal/: strict intake output, monitor and replete electrolytes, follow BUN/ creatinine. ID: cultures growing e. coli. urine strep pneumo and legionella negative. d/c zosyn and azithromycin. started Rocephin 1gm iv q24h for total 7 day course of abx (stop date 04/30) ID consulted Zosyn restarted 05/01/17 Blood cultures growing Escherichia coli Endocrine: Watch for hyperglycemia, SSI for glycemic control if needed Heme: Follow CBC and coags. Prophylaxis: PPI/SCDs/Lovenox Dispo: Level III followup D/W [employer]ER [employer]ED GOODS at bedside ([place]) Physician Nhi Adler MD May 04, 2017 19:53
[2017-05-04] MEDS ORDERED: FUROSEMIDE 40 MG/4 ML VIAL IV PUSH ONE (20:00)
[2017-05-04] MEDS: BENZTROPINE MESYLATE 1 MG TAB PO SCH (21:29)
[2017-05-04] MEDS: RESP: ALBUTEROL 2.5 MG/IPRATROPIUM 0.5 MG NEB (SCH) NEB (21:31)
[2017-05-05] VITALS (14 sets, daily range): BP systolic 136–154; BP diastolic 77–98; PULSE 100–125; RESP 18–31; TEMP 97.4–99.8; O2SAT 89–97
[2017-05-05] MEDS: RESP: ALBUTEROL 2.5 MG/IPRATROPIUM 0.5 MG NEB (SCH) NEB ×4 (03:50→19:53)
[2017-05-05] MEDS: METOCLOPRAMIDE HCL 10 MG/2 ML VIAL IV PUSH SCH ×3 (04:47→22:00)
[2017-05-05] MEDS: PIPERACIL-TAZO 3.375 GM PREMIX 50 ML IV SCH ×3 (04:48→16:51)
[2017-05-05] MEDS: INSULIN ASPART SUPPLEMENTAL SCALE SQ SCH ×3 (04:53→17:37)
[2017-05-05 05:52] LABS: HEMATOCRIT 32.9 % (39.0-51.0); HEMOGLOBIN 10.4 GM/DL (13.0-17.0); MEAN CELL VOLUME 74.1 FL (80.0-100.0); MEAN CORPUSCULAR HEMOGLOBIN 23.4 PG (27.0-34.0); MEAN CORPUSCULAR HGB CONC 31.5 % (32.0-36.0); MEAN PLATELET VOLUME 7.1 FL (7.0-11.0); PLATELET COUNT 696 TH/MM3 (150-450); RED BLOOD COUNT 4.44 MIL/MM3 (4.50-5.90); RED CELL DISTRIBUTION WIDTH 17.6 % (11.6-17.2); WHITE BLOOD COUNT 13.3 TH/MM3 (4.0-11.0)
[2017-05-05] MEDS: ONDANSETRON HCL 4 MG/2 ML VIAL IV PUSH PRN ×2 (06:14→18:27)
[2017-05-05 06:16] LABS: BICARBONATE 26.8 MEQ/L (21.0-32.0); CALCIUM 8.9 MG/DL (8.5-10.1); CREATININE 0.86 MG/DL (0.60-1.30)
--- NOTE | 2017-05-05 07:24 | HHI.CCPN ---
Subjective Remarks/Hospital Course 04/22: 56-year-old man, 3-4 days cough cold symptoms, worsening trouble breathing, fevers and chills. History of COPD, diabetes, hypertension. Ran out of his nebulizers last night. Significant worsening shortness of breath, cough, fever or myalgias. No nausea or vomiting. History limited due to patient's marked respiratory distress. Patient initially placed on BiPAP however develop worsening respiratory distress and hence was emergently intubated and placed on mechanical ventilation by ER physician. His chest x- ray in the ER revealed right lower lobe pneumonia and after obtaining blood cultures he was initiated on empiric antibiotic coverage. Accepted for admission by critical care medicine service. I evaluated the patient following his arrival to the ICU. At that time he was sedated, orally intubated on mechanical ventilation. History obtained by reviewing records and discussion with patient's . 04/23: Remains sedated, orally intubated on mechanical ventilation. Blood cultures growing Escherichia coli. 04/24: remains intubated. blood and sputum growing e. coli. still no family reachable for bronch. 04/25: much more awake and alert. sputum and blood growing e. coli. Abx narrowed to Rocephin IV, total of 7 day course. hypoxia improving. 04/26: Sedated, orally intubated on mechanical ventilation. Tolerating tube feeds. 04/27: Remains sedated, orally intubated on mechanical ventilation. Having high residuals with tube feedings. Significant pulmonary secretions noted. 04/28: Sedated, orally intubated on mechanical ventilation. Failed C Pap trial. 04/29: Patient failed CPAP trials, patient noted to have not have a bowel movement for greater than 6 days, fleets enema ordered. X-ray revealed new infiltrate of left lung base. 04/30: Patient had 4 bowel movements status post fleets enema in the last 12 hours. The patient had an episode of increasing FiO2 requirements during the night. Patient still noted to have significant pulmonary secretions. Tube feed residuals minimal. 05/01: Patient continues on CPAP trials greater than 8 hours. Tolerating tube feeds. 05/02: Afebrile . Patient continues on CPAP trials . Escherichia coli in sputum, ID consulted, Zosyn reinitiated. 05/03: Patient tolerated CPAP throughout the night, however failed SBT parameters this a.m. unable to produce a NIF. Will continue CPAP throughout the night if patient continues to be clinically stable with plan on repeat SBT parameters in a.m. for tentative extubation. 05/04: The patient was extubated this morning notable severe weakness. PT and OT evaluation ordered. Noted to have bilateral small pleural effusions Lasix 40 mg IV 1 dose given this evening. 05/05: Patient effectively diuresed greater than 2 L. The patient has been weaned down to O2 at 4 L nasal cannula with O2 sat 93-94 percent. Patient is tolerating a clear liquid diet. Patient's extremely lethargic this morning despite Seroquel and trazodone on hold yesterday. Haldol placed on hold this a.m.. Encourage incentive spirometry use. PT evaluation initiated. Objective Vital Signs Date Time Temp Pulse Resp B/P (MAP) Pulse Ox O2 Delivery O2 Flow Rate FiO2 05/05/17 06:00 100 05/05/17 04:00 99.8 30 145/77 (99) 97 05/04/17 21:31 Nasal Cannula 4.00 05/04/17 10:03 36 Intake and Output 05/05/17 05/05/17 05/06/17 08:00 16:00 00:00 Intake Total 340 ml Output Total 2000 ml Balance -1660 ml Result Diagram: 05/05/17 0533 05/05/17 0533 Imaging Last 24 hours Impressions Chest X-Ray 04/23/17 0600 Signed Impressions: Service Date/Time: Sunday, April 23, 2017 03:07 - CONCLUSION: Worsening right lung base opacity probably collapsed lung obscuring previously seen mass or consolidation and there is also bilateral infiltrates mainly on the left side not present previously may represent pulmonary edema. Alexis Valdivia MD Last Impressions Chest X-Ray 04/22/17 06 Signed Impressions: Service Date/Time: Saturday, April 22, 2017 06:35 - CONCLUSION: Right lower lobe pneumonia. Alexis Valdivia MD Objective Remarks Gen: Well-developed well-nourished male patient in no apparent distress, very lethargic this a.m. HEENT/ Neuro: Sedated, orally intubated, Pallor present, no icterus, tongue/ mucosa moist Neck: No JVD Chest/Pulm: Clear to auscultation no wheezing or crackles. B/L chest excursion. Currently on O2 at 4 L nasal cannula CVS: S1-S2 regular, no murmur. Telemetry sinus rhythm GI/abdomen: soft, nontender, bowel sounds sluggish Extremities: warm bilaterally, edema 1+ A/P Assessment and Plan 56-year-old male with: Acute hypoxic respiratory failure requiring mechanical ventilation-resolved Right lower lobe pneumonia Severe sepsis - improving. Diabetes mellitus COPD E. Coli bacteremia E. Coli community acquired pneumonia Acute kidney injury Persistent leukocytosis Electrolyte derangement Plan: Neuro: Serquel and Trazodone placed on hold Cardiovascular: saline lock ivf. Pulmonary: Extubated 05/04. Continue bronchodilators. CT chest with densely infiltrative RLL consolidation. no appreciable pleural effusion. daily SBTs.1/3 new infiltrate left lower lobe . Plan to continue CPAP trials as long as patient is clinically stable . GI/liver: Tolerating tube feeds. High residuals resolved 1/3. Decreased narcotics , continue Reglan and laxatives. Renal/: strict intake output, monitor and replete electrolytes, follow BUN/ creatinine. Potassium level 3.2 replete ID: cultures growing e. coli. urine strep pneumo and legionella negative. d/c zosyn and azithromycin. started Rocephin 1gm iv q24h for total 7 day course of abx (stop date 04/30) ID consulted Zosyn restarted 05/01/17 Blood cultures growing Escherichia coli Endocrine: Watch for hyperglycemia, SSI for glycemic control if needed Heme: Follow CBC and coags. MSK: PT/OT evaluation Prophylaxis: PPI/SCDs/Lovenox Dispo: Level 2 followup D/W EXECUTIVE [employer]NESS PROGRAMS DIRECTOR and patient's spouse at bedside. Plan transfer to [facility] in a.m. Plan transfer to [facility] floor. Physician Nhi Adler MD May 05, 2017 07:24
[2017-05-05] MEDS: SODIUM CHLORIDE 0.9% FLUSH 10 ML FLUSH IV FLUSH SCH ×2 (08:32→21:00)
[2017-05-05] MEDS: GABAPENTIN 300 MG CAP PO SCH ×3 (08:33→17:33)
[2017-05-05] MEDS: CILOSTAZOL 100 MG TAB PO SCH (08:33)
[2017-05-05] MEDS: ENOXAPARIN SODIUM 40 MG/0.4 ML SYRINGE SQ SCH (08:33)
[2017-05-05] MEDS: DOCUSATE SODIUM 50 MG/SENNA 8.6 MG TAB PO SCH ×2 (08:33→21:00)
[2017-05-05] MEDS: buPROPion HCL 150 MG EXTENDED RELEASE TAB PO SCH (08:33)
[2017-05-05] MEDS: PANTOPRAZOLE SOD 40 MG DELAYED RELEASE TAB PO SCH (08:33)
[2017-05-05] MEDS ORDERED: POTASSIUM CHLORIDE 25 MEQ EFFERVESCENT TAB PO ONE (12:15)
[2017-05-05] MEDS ORDERED: LABETALOL HCL 100 MG/20 ML VIAL IV PUSH PRN (12:15)
--- NOTE | 2017-05-05 15:08 | HHI.IDPN ---
Subjective Subjective Remarks repeat sputum E.coli isolate is not ESBL doing good extubated, on NC O2, but vomited today + low grade fevero occasionally Antibiotics zosyn Allergies: Coded Allergies: No Known Allergies (Verified Allergy, Unknown, 04/22/17) Objective . Vital Signs Date Time Temp Pulse Resp B/P (MAP) Pulse Ox O2 Delivery O2 Flow Rate FiO2 05/05/17 09:02 95 Nasal Cannula 4.00 05/05/17 08:00 98.2 110 31 154/85 (108) 91 05/05/17 06:00 100 05/05/17 04:00 99.8 100 30 145/77 (99) 97 05/05/17 04:00 100 05/05/17 02:00 109 05/05/17 00:00 98.3 106 23 150/94 (112) 89 05/05/17 00:00 106 05/04/17 22:00 101 05/04/17 21:31 92 Nasal Cannula 4.00 05/04/17 20:00 98.3 104 52 140/84 (102) 93 05/04/17 20:00 104 05/04/17 18:00 102 05/04/17 16:00 97.9 100 33 142/94 (110) 92 05/04/17 16:00 100 . Laboratory Tests Test 05/04/17 07:25 05/05/17 05:33 White Blood Count 13.0 TH/MM3 13.3 TH/MM3 Red Blood Count 4.27 MIL/MM3 4.44 MIL/MM3 Hemoglobin 10.4 GM/DL 10.4 GM/DL Hematocrit 32.1 % 32.9 % Mean Corpuscular Volume 75.0 FL 74.1 FL Mean Corpuscular Hemoglobin 24.3 PG 23.4 PG Mean Corpuscular Hemoglobin Concent 32.4 % 31.5 % Red Cell Distribution Width 17.5 % 17.6 % Platelet Count 482 TH/MM3 696 TH/MM3 Mean Platelet Volume 8.0 FL 7.1 FL Laboratory Tests Test 05/04/17 07:25 05/05/17 05:33 Blood Urea Nitrogen 19 MG/DL 19 MG/DL Creatinine 0.73 MG/DL 0.86 MG/DL Random Glucose 109 MG/DL 120 MG/DL Calcium Level 8.7 MG/DL 8.9 MG/DL Sodium Level 136 MEQ/L 136 MEQ/L Potassium Level 4.3 MEQ/L 3.2 MEQ/L Chloride Level 101 MEQ/L 99 MEQ/L Carbon Dioxide Level 27.5 MEQ/L 26.8 MEQ/L Anion Gap 8 MEQ/L 10 MEQ/L Estimat Glomerular Filtration Rate 135 ML/MIN 111 ML/MIN Microbiology Date/Time Source Procedure Growth Status 05/02/17 22:09 Blood Peripheral Aerobic Blood Culture - Preliminary NO GROWTH IN 3 DAYS Resulted 05/02/17 22:09 Blood Peripheral Anaerobic Blood Culture - Preliminary NO GROWTH IN 3 DAYS Resulted Imaging Last Impressions Chest X-Ray 05/04/17 0600 Signed Impressions: Service Date/Time: Thursday, May 04, 2017 04:00 - CONCLUSION: No significant change with persistent bilateral right greater than left pulmonary parenchymal consolidation and likely small bilateral pleural effusions. Sagar Gerard MD Chest CT 04/23/17 0000 Signed Impressions: Service Date/Time: Sunday, April 23, 2017 23:01 - CONCLUSION: Parenchymal infiltrates with dense bibasilar consolidation worse on the right and pneumonia is suspected. Alexis Valdivia MD Physical Exam CONSTITUTIONAL/GENERAL: This is an adequately nourished patient, in no apparent distress. TUBES/LINES/DRAINS: SKIN: No jaundice, rashes, or lesions. Skin temperature appropriate. Not diaphoretic. CARDIOVASCULAR: Regular rate and rhythm without murmurs, gallops, or rubs. No JVD. Peripheral pulses symmetric. RESPIRATORY/CHEST: Symmetric, unlabored respirations. Clear to auscultation. Breath sounds equal bilaterally. No wheezes, rales, or rhonchi. GASTROINTESTINAL: Abdomen soft, non-tender, nondistended. No hepato-splenomegaly , or palpable masses. No guarding. Bowel sounds present. GENITOURINARY: Without palpable bladder distension. Henley catheter in place with clear yellow urine MUSCULOSKELETAL: Extremities without clubbing, cyanosis, or edema. No joint effusion noted. No mottling or clubbing. NEUROLOGICAL: sedated, int'd, on mech vent'n PSYCHIATRIC: unable to assess Assessment & Plan Remarks PNA, E.coli, bacteremic Acute VDRF Worsening resp status - better today New E.coli PNA, now with ? ESBL Leukocytosis: stable, low grade Thrombocytosis - complete Zosyn 7 days (stop date 05/07) Fabiana Seo RN, MD May 05, 2017 15:08
[2017-05-05] MEDS: BENZTROPINE MESYLATE 1 MG TAB PO SCH (21:00)
[2017-05-06] VITALS (11 sets, daily range): BP systolic 123–146; BP diastolic 73–89; PULSE 89–113; RESP 16–18; TEMP 97.4–98.4; O2SAT 90–97
[2017-05-06] MEDS: PIPERACIL-TAZO 3.375 GM PREMIX 50 ML IV SCH ×5 (00:01→23:51)
[2017-05-06] MEDS: CHLORHEXIDINE GLUCONATE 2 % 1 PACK (2 CLOTHS) TOP SCH (02:56)
[2017-05-06] MEDS: RESP: ALBUTEROL 2.5 MG/IPRATROPIUM 0.5 MG NEB (SCH) NEB ×4 (04:09→20:07)
[2017-05-06] MEDS: INSULIN ASPART SUPPLEMENTAL SCALE SQ SCH ×4 (05:20→17:12)
[2017-05-06] MEDS: METOCLOPRAMIDE HCL 10 MG/2 ML VIAL IV PUSH SCH ×3 (05:20→22:00)
[2017-05-06] MEDS: ENOXAPARIN SODIUM 40 MG/0.4 ML SYRINGE SQ SCH (08:40)
[2017-05-06] MEDS: PANTOPRAZOLE SOD 40 MG DELAYED RELEASE TAB PO SCH (08:40)
[2017-05-06] MEDS: SODIUM CHLORIDE 0.9% FLUSH 10 ML FLUSH IV FLUSH SCH ×2 (08:40→23:16)
[2017-05-06] MEDS: CILOSTAZOL 100 MG TAB PO SCH (08:40)
[2017-05-06] MEDS: DOCUSATE SODIUM 50 MG/SENNA 8.6 MG TAB PO SCH ×2 (08:41→21:00)
[2017-05-06] MEDS: GABAPENTIN 300 MG CAP PO SCH ×3 (08:41→16:58)
[2017-05-06] MEDS: buPROPion HCL 150 MG EXTENDED RELEASE TAB PO SCH (08:45)
--- NOTE | 2017-05-06 11:38 | HHI.PR ---
Subjective Remarks Consulted by critical care medicine for transfer care medical management. Chart reviewed. Patient was in the ICU treated for acute respiratory failure intubated then extubated and Escherichia coli pneumonia. At this time, patient has no complaints denies shortness of breath. Improving cough. Still on nasal cannula. Discussed with RN Objective Vitals Vital Signs Date Time Temp Pulse Resp B/P (MAP) Pulse Ox O2 Delivery O2 Flow Rate FiO2 05/06/17 09:25 89 05/06/17 09:16 93 Nasal Cannula 3.00 05/06/17 08:00 97.4 106 16 131/88 (102) 95 05/06/17 05:00 98.1 109 18 139/85 (103) 93 05/06/17 04:09 93 Nasal Cannula 3.00 05/06/17 02:35 113 05/06/17 00:26 98.4 113 18 128/86 (100) 95 05/05/17 20:40 98.7 113 18 137/98 (111) 94 05/05/17 20:00 110 05/05/17 19:58 92 Nasal Cannula 4.00 05/05/17 17:55 97.4 112 18 140/92 (108) 94 05/05/17 16:00 98.0 105 26 153/95 (114) 97 05/05/17 16:00 105 05/05/17 14:00 112 05/05/17 12:00 105 05/05/17 12:00 98.3 105 21 136/95 (109) 93 I/O 05/05/17 05/05/17 05/05/17 05/06/17 05/06/17 05/06/17 06:59 14:59 22:59 06:59 14:59 22:59 Intake Total 340 ml 250 ml 290 ml Output Total 2000 ml 501 ml 250 ml Balance -1660 ml -251 ml 40 ml Intake Oral 240 ml 250 ml 240 ml IV Total 100 ml 50 ml Output Urine Total 2000 ml 500 ml 250 ml Emesis 1 ml # Voids 1 1 # Bowel Movements 1 4 3 Result Diagram: 05/05/17 0533 05/05/17 0533 Imaging Last Impressions Chest X-Ray 05/04/17 0600 Signed Impressions: Service Date/Time: Thursday, May 04, 2017 04:00 - CONCLUSION: No significant change with persistent bilateral right greater than left pulmonary parenchymal consolidation and likely small bilateral pleural effusions. Sagar Gerard MD Chest CT 04/23/17 0000 Signed Impressions: Service Date/Time: Sunday, April 23, 2017 23:01 - CONCLUSION: Parenchymal infiltrates with dense bibasilar consolidation worse on the right and pneumonia is suspected. Alexis Valdivia MD Objective Remarks GENERAL: Well-developed, well-nourished in no distress on nasal cannula SKIN: Warm and dry. CARDIOVASCULAR: Regular rate and rhythm. RESPIRATORY: No accessory muscle use. Clear to auscultation. Breath sounds equal bilaterally. GASTROINTESTINAL: Abdomen soft, non-tender, nondistended. MUSCULOSKELETAL: Extremities without clubbing, cyanosis, or edema. No obvious deformities. NEUROLOGICAL: Awake and alert. No obvious cranial nerve deficits. Motor grossly within normal limits. Five out of 5 muscle strength in the arms and legs. Normal speech. PSYCHIATRIC: Appropriate mood and affect; insight and judgment normal. Denies hallucinations Procedures intubation A/P Problem List: (1) Pneumonia ICD Code: J18.9 - Pneumonia Status: Acute Assessment and Plan 56-year-old male with: Acute hypoxic respiratory failure requiring mechanical ventilation-resolved with history of COPD. Continue nebulizations. Wean oxygen. Oxygen walk test Right lower lobe pneumonia with Escherichia coli. Status post IV Rocephin and Zithromax Severe sepsis with Escherichia coli bacteremia. Repeat blood culture negative. Complete IV Zosyn last dose tomorrow Persistent leukocytosis. Monitor Diabetes mellitus. Fingerstick stable Acute kidney injury. Resolved Bipolar disorder. Restart Haldol, Seroquel and trazodone EProphylaxis: PPI/SCDs/Lovenox Discharge Planning Possible discharge in the morning with PT. Oxygen walk test. Eleazar Winston MD May 06, 2017 11:38
--- NOTE | 2017-05-06 18:58 | HHI.DCPOC ---
Discharge Care Plan Diagnosis: (1) Pneumonia (2) Sepsis Your Health Problems Are: Difficulty with ADL Exercise Tolerance Goals to Promote Your Health * To prevent worsening of your condition and complications * To maintain your health at the optimal level Directions to Meet Your Goals Take your medications as prescribed Follow your dietary instruction Follow activity as directed Keep your appointments as scheduled Take your immunizations and boosters as scheduled If your symptoms worsen call your PCP, if no PCP go to Urgent Care Center or Emergency Room Smoking is Dangerous to Your Health. Avoid second hand smoke Call the 24-hour hour crisis hotline for domestic abuse at Eleazar Winston MD May 06, 2017 18:58
--- NOTE | 2017-05-06 18:58 | HHI.FF ---
Face to Face Verification Diagnosis: (1) Sepsis Physical Therapy Order: Evaluate and Treat, Improve ambulation, Strength and gait training I have seen patient Juwan Martínez on 05/06/17. My clinical findings support the need for the requested home health care services because: Deconditioned w/ increased weakness I certify that my clinical findings support that this patient is homebound because: Need for psychosocial assistance Eleazar Winston MD May 06, 2017 18:58
[2017-05-06] MEDS ORDERED: OXYGENDME NAS.CANULA (19:00)
[2017-05-06] MEDS: BENZTROPINE MESYLATE 1 MG TAB PO SCH (21:00)
[2017-05-06] MEDS: QUEtiapine FUMARATE 200 MG TAB PO SCH (23:13)
[2017-05-06] MEDS: traZODone HCL 50 MG TAB PO SCH (23:14)
[2017-05-07] VITALS (10 sets, daily range): BP systolic 127–140; BP diastolic 70–97; PULSE 92–104; RESP 16–18; TEMP 97.9–98.7; O2SAT 91–97
[2017-05-07] MEDS: CHLORHEXIDINE GLUCONATE 2 % 1 PACK (2 CLOTHS) TOP SCH (02:47)
[2017-05-07] MEDS: RESP: ALBUTEROL 2.5 MG/IPRATROPIUM 0.5 MG NEB (SCH) NEB ×4 (03:57→20:57)
[2017-05-07] MEDS: PIPERACIL-TAZO 3.375 GM PREMIX 50 ML IV SCH ×4 (05:48→23:46)
[2017-05-07] MEDS: METOCLOPRAMIDE HCL 10 MG/2 ML VIAL IV PUSH SCH (05:52)
[2017-05-07] MEDS: INSULIN ASPART SUPPLEMENTAL SCALE SQ SCH ×4 (05:52→17:56)
[2017-05-07] MEDS: buPROPion HCL 150 MG EXTENDED RELEASE TAB PO SCH (08:26)
[2017-05-07] MEDS: ENOXAPARIN SODIUM 40 MG/0.4 ML SYRINGE SQ SCH (08:26)
[2017-05-07] MEDS: GABAPENTIN 300 MG CAP PO SCH ×3 (08:26→17:57)
[2017-05-07] MEDS: CILOSTAZOL 100 MG TAB PO SCH (08:26)
[2017-05-07] MEDS: SODIUM CHLORIDE 0.9% FLUSH 10 ML FLUSH IV FLUSH SCH ×2 (08:27→22:11)
[2017-05-07] MEDS: PANTOPRAZOLE SOD 40 MG DELAYED RELEASE TAB PO SCH (08:27)
[2017-05-07] MEDS: DOCUSATE SODIUM 50 MG/SENNA 8.6 MG TAB PO SCH ×2 (08:27→22:10)
[2017-05-07] MEDS: HALOPERIDOL 2 MG TAB PO SCH (08:27)
[2017-05-07 09:45] LABS: BASOPHIL # 0.1 TH/MM3 (0-0.2); BASOPHIL % 1.4 % (0.0-2.0); EOSINOPHIL # 0.2 TH/MM3 (0-0.4); EOSINOPHIL % 1.5 % (0.0-4.0); HEMATOCRIT 30.1 % (39.0-51.0); HEMOGLOBIN 9.7 GM/DL (13.0-17.0); LYMPH % 25.9 % (9.0-44.0); LYMPHOCYTE # 2.6 TH/MM3 (1.0-4.8); MEAN CELL VOLUME 74.5 FL (80.0-100.0); MEAN CORPUSCULAR HGB CONC 32.2 % (32.0-36.0); MEAN PLATELET VOLUME 7.1 FL (7.0-11.0); MONO % 10.6 % (0.0-8.0); MONOCYTE # 1.1 TH/MM3 (0-0.9); NEUT % 60.6 % (16.0-70.0); PLATELET COUNT 661 TH/MM3 (150-450); RED BLOOD COUNT 4.04 MIL/MM3 (4.50-5.90); RED CELL DISTRIBUTION WIDTH 17.9 % (11.6-17.2); WHITE BLOOD COUNT 9.9 TH/MM3 (4.0-11.0)
[2017-05-07 10:13] LABS: BICARBONATE 26.6 MEQ/L (21.0-32.0); CALCIUM 8.5 MG/DL (8.5-10.1); MAGNESIUM 2.2 MG/DL (1.5-2.5)
[2017-05-07] MEDS ORDERED: METOCLOPRAMIDE HCL 10 MG/2 ML VIAL IV PUSH PRN (11:30)
[2017-05-07] MEDS ORDERED: POTASSIUM CHLORIDE 20 MEQ CONTROLLED RELEASE TAB PO ONE (12:15)
--- NOTE | 2017-05-07 12:49 | HHI.PR ---
Subjective Remarks Follow-up pneumonia. Improving shortness of breath. Failed walk test. Unable to arrange home oxygen and physical therapy secondary to no insurance discussed with case management. Objective Vitals Vital Signs Date Time Temp Pulse Resp B/P (MAP) Pulse Ox O2 Delivery O2 Flow Rate FiO2 05/07/17 10:21 2.00 05/07/17 08:00 98.1 98 16 127/81 (96) 93 05/07/17 05:00 96 05/07/17 04:00 98.2 104 18 133/71 (91) 92 05/07/17 00:00 98.3 92 18 128/72 (90) 97 05/06/17 20:07 95 Nasal Cannula 2.00 05/06/17 20:00 98.1 100 18 130/73 (92) 97 05/06/17 16:00 98.1 107 16 123/89 (100) 90 05/06/17 12:58 2.00 I/O 05/06/17 05/06/17 05/06/17 05/07/17 05/07/17 05/07/17 07:00 15:00 23:00 07:00 15:00 23:00 Intake Total 340 ml 50 ml Output Total 250 ml 300 ml Balance 90 ml -250 ml Intake Oral 240 ml IV Total 100 ml 50 ml Output Urine Total 250 ml 300 ml # Voids 1 3 2 # Bowel Movements 3 Result Diagram: 05/07/1748 05/07/17 0848 Objective Remarks GENERAL: Well-developed and well-nourished in no distress SKIN: Warm and dry. CARDIOVASCULAR: Regular rate and rhythm. RESPIRATORY: No accessory muscle use. Clear to auscultation. Breath sounds equal bilaterally. GASTROINTESTINAL: Abdomen soft, non-tender, nondistended. MUSCULOSKELETAL: Extremities without clubbing, cyanosis, or edema. No obvious deformities. NEUROLOGICAL: Awake and alert. No obvious cranial nerve deficits. Motor grossly within normal limits. Five out of 5 muscle strength in the arms and legs. Normal speech. PSYCHIATRIC: No hallucinations Procedures intubation A/P Problem List: (1) Pneumonia ICD Code: J18.9 - Pneumonia Status: Acute Assessment and Plan 56-year-old male with: Acute hypoxic respiratory failure requiring mechanical ventilation-resolved with history of COPD. Continue nebulizations. Wean oxygen. Failed Oxygen walk test unable to arrange home oxygen secondary to patient's without insurance Right lower lobe pneumonia with Escherichia coli. Status post IV Rocephin and Zithromax Severe sepsis with Escherichia coli bacteremia. Repeat blood culture negative. Complete IV Zosyn last dose today per ID Persistent leukocytosis. Monitor Diabetes mellitus. Fingerstick stable Acute kidney injury. Resolved Bipolar disorder. Restart Haldol, Seroquel and trazodone Prophylaxis: PPI/SCDs/Lovenox Discharge Planning Possible discharge in the morning with PT. repeat Oxygen walk test. Eleazar Winston MD May 07, 2017 12:49
[2017-05-07] MEDS: BENZTROPINE MESYLATE 1 MG TAB PO SCH (22:09)
[2017-05-07] MEDS: QUEtiapine FUMARATE 200 MG TAB PO SCH (22:09)
[2017-05-07] MEDS: traZODone HCL 50 MG TAB PO SCH (22:10)
[2017-05-08] VITALS (10 sets, daily range): BP systolic 127–154; BP diastolic 74–92; PULSE 87–117; RESP 18–20; TEMP 98.1–99; O2SAT 94–98
[2017-05-08] MEDS: RESP: ALBUTEROL 2.5 MG/IPRATROPIUM 0.5 MG NEB (SCH) NEB ×4 (03:44→21:16)
[2017-05-08] MEDS: CHLORHEXIDINE GLUCONATE 2 % 1 PACK (2 CLOTHS) TOP SCH (04:00)
[2017-05-08] MEDS: PIPERACIL-TAZO 3.375 GM PREMIX 50 ML IV SCH (05:37)
[2017-05-08] MEDS: INSULIN ASPART SUPPLEMENTAL SCALE SQ SCH ×5 (06:00→23:53)
[2017-05-08] MEDS: HALOPERIDOL 2 MG TAB PO SCH (07:49)
[2017-05-08] MEDS: GABAPENTIN 300 MG CAP PO SCH ×3 (07:49→17:37)
[2017-05-08] MEDS: PANTOPRAZOLE SOD 40 MG DELAYED RELEASE TAB PO SCH (07:49)
[2017-05-08] MEDS: DOCUSATE SODIUM 50 MG/SENNA 8.6 MG TAB PO SCH ×2 (07:49→21:00)
[2017-05-08] MEDS: ENOXAPARIN SODIUM 40 MG/0.4 ML SYRINGE SQ SCH (07:50)
[2017-05-08] MEDS: CILOSTAZOL 100 MG TAB PO SCH (07:50)
[2017-05-08] MEDS: SODIUM CHLORIDE 0.9% FLUSH 10 ML FLUSH IV FLUSH SCH ×2 (07:51→21:11)
[2017-05-08] MEDS: buPROPion HCL 150 MG EXTENDED RELEASE TAB PO SCH (08:28)
--- NOTE | 2017-05-08 08:58 | HHI.PR ---
Addendum to Inpatient Note Additional Information pt received 7 days of appropriate abx therapy - will dc abx Fabiana Ríos MD May 08, 2017 08:58
--- NOTE | 2017-05-08 11:36 | HHI.PR ---
Subjective Remarks Follow-up pneumonia. Improving shortness of breath still requiring oxygen. Discussed with RN Objective Vitals Vital Signs Date Time Temp Pulse Resp B/P (MAP) Pulse Ox O2 Delivery O2 Flow Rate FiO2 05/08/17 07:44 99.0 89 20 128/74 (92) 97 05/08/17 06:01 3.00 05/08/17 04:00 98.2 97 18 154/74 (100) 97 05/08/17 03:45 94 Nasal Cannula 3.00 05/08/17 00:00 117 05/08/17 00:00 98.4 87 18 127/80 (96) 97 05/07/17 21:06 99 05/07/17 20:00 98.7 98 18 140/97 (111) 97 05/07/17 19:53 100 05/07/17 16:00 97.9 102 16 140/85 (103) 95 05/07/17 15:15 91 21 05/07/17 12:00 98.5 104 16 127/70 (89) 97 I/O 05/07/17 05/07/17 05/07/17 05/08/17 05/08/17 05/08/17 06:59 14:59 22:59 06:59 14:59 22:59 Intake Total 50 ml Output Total 300 ml 300 ml Balance -250 ml -300 ml IV Total 50 ml Output Urine Total 300 ml 300 ml # Voids 2 Result Diagram: 05/07/17 0848 05/07/17 0848 Objective Remarks GENERAL: Well-developed and well-nourished in no distress SKIN: Warm and dry. CARDIOVASCULAR: Regular rate and rhythm. RESPIRATORY: No accessory muscle use. Clear to auscultation. Breath sounds equal bilaterally. GASTROINTESTINAL: Abdomen soft, non-tender, nondistended. MUSCULOSKELETAL: Extremities without clubbing, cyanosis, or edema. No obvious deformities. NEUROLOGICAL: Awake and alert. No obvious cranial nerve deficits. Motor grossly within normal limits. Five out of 5 muscle strength in the arms and legs. Normal speech. PSYCHIATRIC: No hallucinations Procedures intubation A/P Problem List: (1) Pneumonia ICD Code: J18.9 - Pneumonia Status: Acute Assessment and Plan 56-year-old male with: Acute hypoxic respiratory failure requiring mechanical ventilation-resolved with history of COPD. improving Continue nebulizations. Wean oxygen. Failed Oxygen walk test unable to arrange home oxygen secondary to patient's without insurance Right lower lobe pneumonia with Escherichia coli. Status post IV Rocephin and Zithromax. Stable repeat chest x-ray in 6 weeks Severe sepsis with Escherichia coli bacteremia. Repeat blood culture negative. Completed IV Zosyn Persistent leukocytosis. Improving. Monitor Diabetes mellitus. Fingerstick stable Acute kidney injury. Resolved Bipolar disorder. Restart Haldol, Seroquel and trazodone Prophylaxis: PPI/SCDs/Lovenox Discharge Planning Possible discharge in the morning with PT. repeat Oxygen walk test. Eleazar Winston MD May 08, 2017 11:36
--- NOTE | 2017-05-08 13:53 | RADRPT ---
EXAM DATE/TIME: 05/08/2017 13:33 [facility] COMPARISON: CHEST SINGLE AP, May 04, 2017, 4:00. CHEST PA & LAT, October 30, 2016, 14:37. INDICATIONS : Shortness of breath. Followup bilateral consolidation. MEDICAL HISTORY : Hypertension. Chronic obstructive pulmonary disease. SURGICAL HISTORY : Appendectomy. ENCOUNTER: Subsequent ACUITY: 2 weeks PAIN SCORE: 0/10 LOCATION: Bilateral chest FINDINGS: PA and lateral views of the chest were obtained and demonstrate patchy infiltrate in the right middle lobe and right lower lobe. The left lung is now clear. There are multiple overlying electrical leads and oxygen tubing. The cardiomediastinal contours are unremarkable. Osseous structures are intact. CONCLUSION: Patchy infiltrate remains in the right lower lobe and lingula which is improved from the prior study. The left lung is now clear. Kai Drake MD on May 08, 2017 at 13:46 Board Certified Radiologist. This report was verified electronically.
[2017-05-08] MEDS: QUEtiapine FUMARATE 200 MG TAB PO SCH (21:09)
[2017-05-08] MEDS: BENZTROPINE MESYLATE 1 MG TAB PO SCH (21:10)
[2017-05-08] MEDS: traZODone HCL 50 MG TAB PO SCH (21:11)
[2017-05-09] VITALS: PULSE 91
[2017-05-09 00:36] VITALS: BP 126/77; PULSE 92; RESP 18; TEMP 97.4; O2SAT 95
[2017-05-09] MEDS: CHLORHEXIDINE GLUCONATE 2 % 1 PACK (2 CLOTHS) TOP SCH (03:46)
[2017-05-09 05:32] VITALS: BP 129/92; PULSE 97; RESP 19; TEMP 98.4; O2SAT 94
[2017-05-09] MEDS: INSULIN ASPART SUPPLEMENTAL SCALE SQ SCH (06:00)
[2017-05-09 08:07] VITALS: BP 123/75; PULSE 83; RESP 20; TEMP 97.9; O2SAT 95
[2017-05-09] MEDS: DOCUSATE SODIUM 50 MG/SENNA 8.6 MG TAB PO SCH (09:00)
[2017-05-09] MEDS ORDERED: RESP: ALBUTEROL 2.5 MG/3 ML NEB (PRN) INH (09:15)
[2017-05-09] MEDS ORDERED: WALKER WHEELS/F1 MIS (09:17)
[2017-05-09 09:40] VITALS: O2SAT 93
[2017-05-09] MEDS: CILOSTAZOL 100 MG TAB PO SCH (10:05)
[2017-05-09] MEDS: buPROPion HCL 150 MG EXTENDED RELEASE TAB PO SCH (10:05)
[2017-05-09] MEDS: GABAPENTIN 300 MG CAP PO SCH ×2 (10:05→14:35)
[2017-05-09] MEDS: PANTOPRAZOLE SOD 40 MG DELAYED RELEASE TAB PO SCH (10:05)
[2017-05-09] MEDS: HALOPERIDOL 2 MG TAB PO SCH (10:06)
[2017-05-09] MEDS: ENOXAPARIN SODIUM 40 MG/0.4 ML SYRINGE SQ SCH (10:07)
[2017-05-09] MEDS: SODIUM CHLORIDE 0.9% FLUSH 10 ML FLUSH IV FLUSH SCH (10:07)
[2017-05-09 11:42] VITALS: BP 136/89; PULSE 93; RESP 20; TEMP 98; O2SAT 97
[2017-05-09] MEDS ORDERED: RESP: ALBUTEROL 2.5 MG/IPRATROPIUM 0.5 MG NEB (SCH) INH (12:00)
[2017-05-09] MEDS ORDERED: ALBUAER3 INH (12:30)
--- NOTE | 2017-05-09 12:32 | HHI.DS ---
Discharge Summary Admission Date Apr 22, 2017 at 08:40 Discharge Date: May 09, 2017 Admitting Diagnosis SOB (1) Pneumonia ICD Code: J18.9 - Pneumonia Status: Acute Procedures intubation Brief History - From Admission 56-year-old man, 3-4 days cough cold symptoms, worsening trouble breathing, fevers and chills. History of COPD, diabetes, hypertension. Ran out of his nebulizers last night. Significant worsening shortness of breath, cough, fever or myalgias. No nausea or vomiting. History limited due to patient's marked respiratory distress. Patient initially placed on BiPAP however develop worsening respiratory distress and hence was emergently intubated and placed on mechanical ventilation by ER physician. CBC/BMP: 05/07/17 0848 05/07/17 0848 Significant Findings Laboratory Tests Test 05/07/17 08:48 Red Blood Count 4.04 MIL/MM3 (4.50-5.90) Hemoglobin 9.7 GM/DL (13.0-17.0) Hematocrit 30.1 % (39.0-51.0) Mean Corpuscular Volume 74.5 FL (80.0-100.0) Mean Corpuscular Hemoglobin 24.0 PG (27.0-34.0) Red Cell Distribution Width 17.9 % (11.6-17.2) Platelet Count 661 TH/MM3 (150-450) Monocytes (%) (Auto) 10.6 % (0.0-8.0) Monocytes # (Auto) 1.1 TH/MM3 (0-0.9) Blood Urea Nitrogen 20 MG/DL (7-18) Sodium Level 134 MEQ/L (136-145) Potassium Level 3.1 MEQ/L (3.5-5.1) Chloride Level 97 MEQ/L (98-107) Imaging Last Impressions Chest X-Ray 05/08/17 0000 Signed Impressions: Service Date/Time: April 13:33 - CONCLUSION: Patchy infiltrate remains in the right lower lobe and lingula which is improved from the prior study. The left lung is now clear. Kai Drake MD Chest CT 04/23/17 0000 Signed Impressions: Service Date/Time: Sunday, April 23, 2017 23:01 - CONCLUSION: Parenchymal infiltrates with dense bibasilar consolidation worse on the right and pneumonia is suspected. Alexis Valdivia MD PE at Discharge GENERAL: Well-developed and well-nourished in no distress SKIN: Warm and dry. CARDIOVASCULAR: Regular rate and rhythm. RESPIRATORY: No accessory muscle use. Clear to auscultation. Breath sounds equal bilaterally. GASTROINTESTINAL: Abdomen soft, non-tender, nondistended. MUSCULOSKELETAL: Extremities without clubbing, cyanosis, or edema. No obvious deformities. NEUROLOGICAL: Awake and alert. No obvious cranial nerve deficits. Motor grossly within normal limits. Five out of 5 muscle strength in the arms and legs. Normal speech. PSYCHIATRIC: No hallucinations Hospital Course 56-year-old male with: Acute hypoxic respiratory failure requiring mechanical ventilation-resolved with history of COPD. Improving Continue nebulizations. Weaned oxygen tolerating room air. Right lower lobe pneumonia with Escherichia coli. Status post IV Rocephin and Zithromax. Stable repeat chest x-ray in 6 weeks Severe sepsis with Escherichia coli bacteremia. Repeat blood culture negative. Completed IV Zosyn Persistent leukocytosis. Improving. Monitor Diabetes mellitus. Fingerstick stable Acute kidney injury. Resolved Bipolar disorder. Restart Haldol, Seroquel and trazodone Prophylaxis: PPI/SCDs/Lovenox Pt Condition on Discharge: Stable Discharge Disposition: Discharge Home Discharge Time: > 30 minutes Discharge Instructions DIET: Follow Instructions for: Heart Healthy Diet, Diabetic Diet Activities you can perform: Regular-No Restrictions Activities to Avoid: Driving Follow up Referrals: PCP Follow-up - 1 Week Psychiatry Adult - 1 Week New Orders: X-RAY CHEST PA & LAT - 6 Weeks New Medications: Oxygen (O2) (Oxygen (O2)) Device LITER CORINA.CANULA CONTINUOUS for Prevent Hypoxemia, #2 Oxygen Concentrator Portable Gaseous 2 L/min via Nasal Canula Continuous For 99 months Walker with Front Wheels (Walker with Front Wheels) 1 Mis Mis EA .ROUTE DIRECTED, #1 0 Refills Continued Medications: Albuterol 8.5 GM Inh (Proair Hfa 8.5 GM Inh) 90 Mcg/Act Aer 2 PUFF INH Q4-6H PRN for SHORTNESS OF BREATH, #1 INHALER 0 Refills (This prescription has been renewed) 108 mcg/actuation Benztropine (Benztropine) 0.5 Mg Tab 2 MG PO HS, #60 TAB 0 Refills Bupropion HCl ER 24 HR (Bupropion HCl ER 24 HR) 150 Mg Tab 150 MG PO DAILY for Control Depression, TAB 0 Refills Buspirone (Buspirone) 10 Mg Tab 10 MG PO TID for Anxiety, TAB 0 Refills Cilostazol (Cilostazol) 100 Mg Tab 100 MG PO DAILY for INTERMITTENT CLAUDICATION, #30 TAB 5 Refills Gabapentin (Gabapentin) 300 Mg Cap 300 MG PO TID, #90 CAP 6 Refills Haloperidol (Haloperidol) 2 Mg Tab 2 MG PO DAILY, TAB 0 Refills Pantoprazole (Protonix) 40 Mg Tab 40 MG PO BID for Ulcer Prevention, #30 TAB 3 Refills Quetiapine (Seroquel) 400 Mg Tab 400 MG PO HS, #30 TAB 0 Refills Trazodone (Trazodone) 50 Mg Tab 50 MG PO HS for Control Depression, #30 TAB 0 Refills Discontinued Medications: Lisinopril (Lisinopril) 40 Mg Tab 40 MG PO DAILY for Blood Pressure Management, #90 TAB 3 Refills Omeprazole (Omeprazole) 40 Mg Cap 40 MG PO DAILY, #30 CAP 6 Refills Eleazar Winston MD May 09, 2017 12:32
== END 2017-05-09 15:12 | disposition home or self-care (01) | DRG 853 ==
LOC: NEPE 06:23 → NEDA 08:40 → HIMN 09:52 → N05A 05-05 17:28
PROVIDERS: ADMIT Internal Medicine; ATTEND Internal Medicine
PROC: 5A1955Z Respiratory Ventilation, Greater than 96 Consecutive Hours (ICD-10-PCS; 2017-04-22)
PROC: 0BH17EZ Insertion of Endotracheal Airway into Trachea, Via Natural or Artificial Opening (ICD-10-PCS; 2017-04-22)
PROC: 5A09357 Assistance with Respiratory Ventilation, Less than 24 Consecutive Hours, Continuous Positive Airway Pressure (ICD-10-PCS; 2017-04-22)
PROC: 0B9F8ZX Drainage of Right Lower Lung Lobe, Via Natural or Artificial Opening Endoscopic, Diagnostic (ICD-10-PCS; principal; 2017-04-24)
PROC: 0WCQ8ZZ Extirpation of Matter from Respiratory Tract, Via Natural or Artificial Opening Endoscopic (ICD-10-PCS; 2017-04-24)
DX: A41.9 Sepsis, unspecified organism (principal); J96.01 Acute respiratory failure with hypoxia; J15.5 Pneumonia due to Escherichia coli; J44.0 Chronic obstructive pulmonary disease with (acute) lower respiratory infection; T17.890A Other foreign object in other parts of respiratory tract causing asphyxiation, initial encounter; N17.9 Acute kidney failure, unspecified; F17.210 Nicotine dependence, cigarettes, uncomplicated; E11.9 Type 2 diabetes mellitus without complications; I10 Essential (primary) hypertension; X58.XXXA Exposure to other specified factors, initial encounter; Y93.9 Activity, unspecified; Y92.239 Unspecified place in hospital as the place of occurrence of the external cause; F31.9 Bipolar disorder, unspecified; R65.20 Severe sepsis without septic shock; R11.10 Vomiting, unspecified
CPT/HCPCS: 31500; 36600; 71010; 71045; 71046; 71250; 80048; 80053; 81001; 82805; 82948; 83605; 83735; 83880; 84484; 85007; 85025; 85027; 86403; 87015; 87040; 87070; 87077; 87102; 87116; 87186; 87205; 87206; 87449; 87641; 87804; 93005; 93306; 94002; 94003; 94150; 94618; 94640; 94664; 94667; 94668; 96361; 96365; 96375; 99292; J0330; J0456; J0692; J0696; J1335; J1650; J1815; J1940; J2020; J2060; J2250; J2405; J2543; J2765; J2930; J3010; J3480; J7030; J7050; J7120; J7608